=== PATIENT | male | born 1945 ===

== ENCOUNTER 2024-04-30 14:13 | Inpatient (IN) | payer MEDICARE, OTHER, SELFPAY ==
[2024-04-30] VITALS (10 sets, daily range): BP systolic 123–155; BP diastolic 73–95; PULSE 83–97; RESP 16–22; TEMP 36.4–36.8; O2SAT 93–100; BMI 27.6
--- NOTE | ~2024-04-30 | XR_ITS ---
EXAMINATION: [id number] DATE: 05/01/2024 16:38 INDICATION: Right pleural effusion status post thoracentesis. TECHNIQUE: A single frontal view of the chest was obtained. COMPARISON: Chest 2 views 04/30/2024, chest CT 04/30/2024 FINDINGS: There is a moderate-sized right pleural effusion. There are airspace opacities at right maricruz g base. No pneumothorax. Cardiomegaly is noted. IMPRESSION: 1. Moderate-sized right pleural effusion with improvement status post thoracentesis. 2. Cardiomegaly. Reviewed, dictated and finalized at location A. ORAL ASSISTANT IMPRESSION: 1. Moderate-sized right pleural effusion with improvement status post thoracent esis. 2. Cardiomegaly.
--- NOTE | ~2024-04-30 | CT_ITS ---
EXAMINATION: CT abdomen pelvis wo con DATE: 05/01/2024 14:56 INDICATION: Hydronephrosis. TECHNIQUE: Computed tomography (CT) of the abdomen and pelvis was performed without intravenous contr ast. Automated exposure control and iterative reconstruction technique were employed. The dose-length product was 662.03 mGy-cm. COMPARISON: Chest CT 04/28/2024 FINDINGS: The visualized portions of lung bases demonstrate moderate-sized right and small left pleur al effusions. There are airspace opacities in right middle lobe, right lower lobe, and left lower lob e, likely atelectasis. Calcified right lung nodules are consistent with old granulomatous disease. Ca rdiomegaly is noted. There are coronary artery calcifications. There are calcifications of the aortic valve. No pericardial effusion. There is mild bilateral gynecomastia. The liver and spleen are uri l. There is contrast in the gallbladder, which is normal in size. The pancreas, adrenal glands, and r ight kidney are normal. There is severe atrophy of left kidney. The prostate is moderately enlarged. There is a left inguinal hernia containing fat. There is diverticulosis of the colon without evidence of diverticulitis. There are no dilated loops of bowel. The appendix is normal. There are no patholo gically enlarged lymph nodes. There is no free intraperitoneal fluid. There is calcified atherosclero sis of the aorta and many of the other arteries. There are surgical clips in left pelvis. There are b ridging endplate osteophytes at multiple levels in the spine, consistent with diffuse idiopathic skel etal hyperostosis (DISH). There is severe lumbar spondylosis. IMPRESSION: 1. Moderate-sized right and small left pleural effusions. 2. Severe atrophy of left kidney. No hydronephrosis. Reviewed, dictated and finalized at location A. A ATTORNEY
--- NOTE | ~2024-04-30 | CT_ITS ---
EXAMINATION: CTA chest PE protocol DATE: 04/30/2024 21:09 INDICATION: Dyspnea. TECHNIQUE: Computed tomography angiography (CTA) of the chest was performed with 100 mL Omnipaque-350 intravenous contrast timed to evaluate the pulmonary arteries. Coronal maximum intensity projection 3D-reconstructions were created by the technologist. Automated exposure control and iterative reconst ruction technique were employed. The dose-length product was 712.76 mGy-cm. COMPARISON: Chest 2 views 04/30/2024 FINDINGS: There are moderate-sized right and small left pleural effusions. There is septal thickening in the lungs, consistent with mild pulmonary edema. There are patchy airspace opacities in left uppe r lobe. There is passive atelectasis in right middle lobe and right lower lobe. Cardiomegaly is noted . There are coronary artery calcifications. There are calcifications of the aortic valve. No pericard ial effusion. There is severe atrophy of left kidney. Partially visualized is left hydronephrosis. Th ere is no pulmonary embolus. There is mild mediastinal lymphadenopathy, likely reactive. There are br idging endplate osteophytes at multiple levels in the spine, consistent with diffuse idiopathic skele keiko hyperostosis (DISH). There is mild chronic anterior wedging of multiple vertebral bodies. IMPRESSION: 1. Mild pulmonary edema. 2. Mild airspace opacities in left lung upper lobe, consistent with pulmonary edema versus pneumonia. 3. Moderate-sized right and small left pleural effusions. 4. No pulmonary embolus. Sensitivity is moderately decreased by motion artifact. 5. Partially visualized severe atrophy of left kidney. Left hydronephrosis. Reviewed, dictated and finalized at location A. TION SPECIALIST IMPRESSION: 1. Mild pulmonary edema. 2. Mild airspace opacities in left lung upper lobe, consistent with pulmonary e annamarie versus pneumonia. 3. Moderate-sized right and small left pleural effusions. 4. No pulmonary embolus. Sensitivity is moderately decreased by motion artifact . 5. Partially visualized severe atrophy of left kidney. Left hydronephrosis.
--- NOTE | ~2024-04-30 | US_ITS ---
EXAMINATION: US thoracentesis DATE: 05/01/2024 16:46 INDICATION: pleural effusion TECHNIQUE: The procedure and its risks, benefits, and alternatives were discussed with the patient. Potential risks discussed included bleeding, infection, and pneumothorax. The patient understood the risks and agreed to proceed. A timeout was then performed as per protocol. The skin was prepped and draped in sterile fashion. 1% lidocaine was used for local anesthesia. Under ultrasound guidance, a 5 Fr catheter with trocar was advanced into the right pleural effusion, and the trocar needle removed. The catheter was then attached to vacuum suction after a specimen was obtained. The pleural effusion was evacuated nearly in its entirety. The catheter was then removed, and a sterile dressing was applied. There were no immediate complications. FINDINGS: Ultrasound images demonstrate a large right-sided pleural effusion and the catheter within the fluid. IMPRESSION: 1. Successful ultrasound-guided thoracentesis yielding 1900 mL of thin yellow fluid. Reviewed, dictated and finalized at location A. CARE PROVIDER
--- NOTE | ~2024-04-30 | XR_ITS ---
EXAMINATION: XR chest 2V DATE: 04/30/2024 16:33 INDICATION: Soreness of breath TECHNIQUE: PA and lateral views of the chest were obtained. COMPARISON: None FINDINGS: Opacities at the right lower lung zone consistent with a small to moderate-sized right pleural effusi on with associated atelectasis and/or pneumonia. Left lung is clear. No pneumothorax or left-sided pl eural effusion. Heart size is normal. Mild thoracic spondylosis with mild anterior wedging of a coupl e lower thoracic vertebral bodies. IMPRESSION: 1. Opacities in the right lower lung zone consistent with unilateral small to moderate-sized right pl eural effusion and associated atelectasis and/or pneumonia. Reviewed, dictated and finalized at location B. OIDERY CUTTER IMPRESSION: 1. Opacities in the right lower lung zone consistent with unilateral small to m oderate-sized right pleural effusion and associated atelectasis and/or pneumoni a.
--- NOTE | ~2024-04-30 | US_ITS ---
EXAMINATION: US venous doppler [facility] DATE: 05/02/2024 15:16 INDICATION: Dyspnea. Positive d-dimer. TECHNIQUE: Grayscale ultrasound images without and with compression and Doppler ultrasound images of the bilateral lower extremity veins were obtained. COMPARISON: None. FINDINGS: The visualized portions of right common femoral vein, profunda (deep) femoral vein, femoral vein, pop liteal vein, peroneal veins, posterior tibial veins, and greater saphenous vein outflow are patent. The visualized portions of left common femoral vein, profunda femoral vein, femoral vein, popliteal v ein, peroneal veins, posterior tibial veins, and greater saphenous vein outflow are patent. IMPRESSION: 1. No deep venous thrombosis. Reviewed, dictated and finalized at location A. S AND SERVICE SPECIALIST
--- NOTE | 2024-04-30 15:42 | ECG_ITS ---
Test Date: 2024-04-30 16:13:31 Measurements Intervals [place] Rate: 83 P: 38 NV: 149 QRS: 37 QRSD: 106 T: 90 QT: 396 QTc: 467 Interpretive Statements SINUS RHYTHM WITH OCCASIONAL VENTRICULAR PREMATURE COMPLEXES POSSIBLE LEFT ATRIAL ENLARGEMENT CONSIDER ANTERIOR INFARCT, AGE INDETERMINATE BORDERLINE ST-T WAVE ABNORMALITY- INF/LAT LEADS BASELINE ARTIFACT- I, II, III, AVR, AVL, AVF, V1-V6 ABNORMAL ECG No previous ECG available for comparison Electronically Signed On 04-30-2024 16:21:51 [employer] by Theodore Mo D.O.
--- NOTE | 2024-04-30 15:44 | ED_ITS ---
HPI - SOB/Dyspnea General Chief Complaint: Shortness of Breath/Dyspnea <GLORIA Christensen Last Filed: 04/30/24 15:50> Stated Complaint: SOB <GLORIA Christensen Last Filed: 04/30/24 15:50> Time Seen by Provider: 04/30/24 15:44 <GLORIA Christensen Last Filed: 04/30/24 15:50> Focused HPI: Patient is a 78 y/o male, with pmh of HTN, who presents to the ED with c/o SOB. Patient reports having increased shortness breath for the past 2 weeks. Shortness breath is worse with exertion and lying flat. He also reports having intermittent discomfort in his left-sided chest. He has had a cough with production of thick white mucus. Denies fevers, pain or swelling in legs, sick contacts. GENERAL: Elderly, somewhat frail, well-nourished, and in no acute distress. HEAD: Normocephalic, atraumatic. CHEST: Clear to auscultation. ?Mild conversational dyspnea. No significant focal lung sounds. HEART: Regular rate and rhythm.?No significant peripheral edema. NEURO: ?Alert and oriented x3. Patient screened in triage and initial orders placed.? ?Additional care and disposition to be based upon?diagnostic testing and treatment. <Giovanna Tello PA-C - Last Filed: 04/30/24 15:50> Source: patient <GLORIA Christensen Last Filed: 04/30/24 15:50> Mode of arrival: ambulatory <GLORIA Christensen Last Filed: 04/30/24 15:50> Limitations: no limitations <GLORIA Christensen Last Filed: 04/30/24 15:50> History of Present Illness HPI Narrative: Agree with the above triage, however anesthesia if he has chest pain he denies this. His right exertional dyspnea and orthopnea as well as a productive cough with sputum. States he has been smoking 1 pack per day since he was 15 years old. No formal diagnosis of COPD or asthma. Also denies lower extremity edema or history of CHF. <Shanta Lema PA-C - Last Filed: 04/30/24 21:50> Related Data Home Medications: Home Medications Medication Instructions Recorded Confirmed No Home Medications 04/30/24 04/30/24 <Giovanna Tello PA-C - Last Filed: 04/30/24 15:50> Allergies/Adverse Reactions: Allergies Allergy/AdvReac Type Severity Reaction Status Date / Time No Known Allergies Allergy Verified 04/30/24 14:34 <Giovanna Tello PA-C - Last Filed: 04/30/24 15:50> Review of Systems Review of Systems: All systems reviewed & are unremarkable except as noted in HPI and below <Shanta Lema PA-C - Last Filed: 04/30/24 21:50> PMFSH Family History Family History: Family History (Updated 04/30/24 @ 22:56 by Rain Casillas RN) Father Acute myocardial infarction Hypertension Sibling Acute myocardial infarction <Giovanna Tello PA-C - Last Filed: 04/30/24 15:50> Social History Social History: Social History Smoking status: Former smoker Alcohol intake: current Drinks per week: 5 Substance use type: does not use Do You Feel Safe in your Home?: Yes Lack of Transportation: No Lack of Food: Never True Current Housing: I Have Housing Concerned About Future Housing: No Difficulty Paying Gas/Electric Bills: No Difficulty Paying for Meds: No Currently Unemployed: No Education: High School Diploma/GED Difficulty w/ Childcare or Family Care: No Spiritual care concerns: No <Giovanna Tello PA-C - Last Filed: 04/30/24 15:50> Exam Narrative: GENERAL: Well-appearing, well-nourished, and in no acute distress. HEAD: Normocephalic, atraumatic. EYES: PERRLA and EOMI. ENT: Nares clear, no rhinorrhea or epistaxis. Mucous membranes moist. NECK: Supple. CHEST: Decreased lung sounds throughout all lung bonilla with mild expiratory wheezing in the lower bonilla. No rales or rhonchi. Patient is satting 93% on room air and speaking in full sentences. No respiratory distress. HEART: Regular rate and rhythm. No murmur heard. Normal peripheral pulses. ABDOMEN: Soft, nontender, nondistended, normal active bowel sounds. EXTREMITIES: Normal range of motion. 3+ pitting edema to bilateral lower extremities SKIN: Warm, dry, no rash. NEURO: No focal deficits. Alert and oriented x3 <Shanta Lema PA-C - Last Filed: 04/30/24 21:50> Course [facility]/PA Physician Supervision For this patient encounter, I reviewed the [facility] or PA documentation, treatme nt plan, and medical decision making and had [id number] time with this patient. I performed all aspects of the MDM as documented. <Rolando Daily MD - Last Filed: 05/01/24 07:30> Vital Signs Vital signs: Vital Signs Temperature 97.5 F L 04/30/24 14:29 Pulse Rate 97 04/30/24 14:29 Respiratory Rate 17 04/30/24 14:29 Blood Pressure 155/93 H 04/30/24 14:29 Pulse Oximetry 97 04/30/24 14:29 Oxygen Delivery Room Air 04/30/24 14:29 Temperature 97.8 F 05/01/24 07:20 Pulse Rate 84 05/01/24 07:20 Respiratory Rate 18 05/01/24 07:20 Blood Pressure 148/84 H 05/01/24 07:20 Pulse Oximetry 95 05/01/24 07:20 Oxygen Delivery Room Air 05/01/24 04:00 <Giovanna Tello PA-C - Last Filed: 04/30/24 15:50> Vital Signs Temperature 97.5 F L 04/30/24 14:29 Pulse Rate 97 04/30/24 14:29 Respiratory Rate 17 04/30/24 14:29 Blood Pressure 155/93 H 04/30/24 14:29 Pulse Oximetry 97 04/30/24 14:29 Oxygen Delivery Room Air 04/30/24 14:29 Temperature 97.8 F 05/01/24 07:20 Pulse Rate 84 05/01/24 07:20 Respiratory Rate 18 05/01/24 07:20 Blood Pressure 148/84 H 05/01/24 07:20 Pulse Oximetry 95 05/01/24 07:20 Oxygen Delivery Room Air 05/01/24 04:00 <Shanta Lema PA-C - Last Filed: 04/30/24 21:50> Vital Signs Temperature 97.5 F L 04/30/24 14:29 Pulse Rate 97 04/30/24 14:29 Respiratory Rate 17 04/30/24 14:29 Blood Pressure 155/93 H 04/30/24 14:29 Pulse Oximetry 97 04/30/24 14:29 Oxygen Delivery Room Air 04/30/24 14:29 Temperature 97.8 F 05/01/24 07:20 Pulse Rate 84 05/01/24 07:20 Respiratory Rate 18 05/01/24 07:20 Blood Pressure 148/84 H 05/01/24 07:20 Pulse Oximetry 95 05/01/24 07:20 Oxygen Delivery Room Air 05/01/24 04:00 <Rolando Daily MD - Last Filed: 05/01/24 07:30> MDM - SOB/Dyspnea MDM Narrative Medical decision making narrative: MSE by DARLIN in triage. <Giovanna Tello PA-C - Last Filed: 04/30/24 15:50> MSE by DARLIN in triage. 78-year-old male with history of hypertension presents to the emergency department for exertional dyspnea, productive cough, orthopnea for 2 weeks. Vitals are stable. He is satting 93% on room air upon my evaluation and is in no respiratory distress. Speaking full sentences. Exam is significant for 3+ lower extremity edema and decreased lung sounds with expiratory wheezing in the lower lung bonilla. His workup shows no leukocytosis. Hemoglobin is 12.7 with no prior for comparison. Chemistries are largely unremarkable. BNP is elevated to 7260. COVID, flu RSV are negative. EKG shows sinus rhythm with occasional PVC, Q-waves in the anterior leads, no ischemic changes. Troponin is elevated 0.044. Patient is denying chest pain to myself. Will trend troponins. Chest x-ray shows opacities in the right lower lung zone consistent with anterolateral small to moderate-sized right pleural effusion and associated atelectasis and/or pneumonia. Suspect a component of undiagnosed COPD and CHF. Patient was given DuoNeb, 125 mg of Solu-Medrol and 40 mg of Lasix. D-dimer elevated so CTA chest PE obtained which shows no evidence of PE. There is mild pulmonary edema and mild airspace opacities in the left upper lobe consistent with pulmonary edema versus pneumonia. There are moderate size right and small left pleural effusions. Patient was updated on the workup. He was started on Rocephin and azithromycin to cover pneumonia. Plan to admit to the hospitalist for further evaluation and management. Patient is amenable to this. Discussed the case with hospitalist, Dr. Babcock, who agrees to the plan for admission. <Shanta Lema PA-C - Last Filed: 04/30/24 21:50> Lab Data Result diagrams: 04/30/24 16:15 04/30/24 16:15 <Giovanna Tello PA-C - Last Filed: 04/30/24 15:50> Labs: Lab Results 04/30/24 04/30/24 04/30/24 Range/Units 16:15 19:40 21:33 WBC 8.9 (4.5-10.0) K/mm3 RBC 4.09 L (4.6-6.20) M/mm3 Hgb 12.7 L (14.0-18.0) g/dL Hct 38.2 L (42.0-52.0) % MCV 93.4 (80-100) fl MCH 31.1 (26-34) pg MCHC 33.2 (32-36) g/dl RDW 11.6 (11.5-14.5) % Plt Count 296 (150-375) k/mm3 MPV 10.4 (7.4-10.4) fl Immature Gran % (Auto) 0.3 (0-0.5) % Neut % (Auto) 71.0 (45.5-73.1) % Lymph % (Auto) 16.9 L (18.3-44.2) % [place] % (Auto) 8.8 H (2.6-8.5) % Eos % (Auto) 2.2 (0-4.4) % Baso % (Auto) 0.8 (0.2-1.2) % Lymph # (Auto) 1.51 (0.9-3.2) K/mm3 [place] # (Auto) 0.8 H (0.1-0.6) K/mm3 Eos # (Auto) 0.2 (0-0.3) K/mm3 Baso # (Auto) 0.1 (0.0-0.1) K/mm3 Abs Immat Gran (auto) 0.03 (0.00-0.031) K/mm3 Absolute Neuts (auto) 6.3 (1.3-6.7) K/mm3 Absolute Nucleated RBC 0.000 (0.0-0.012) K/mm3 Nucleated RBC % 0.0 (0.0-0.2) % PT 14.8 H (11.1-14.7) Seconds INR 1.1 APTT 35.9 (22.3-36.8) Seconds D-Dimer 2.24 H (<0.48) ug/mL Sodium 136 L (137-145) mmol/L Potassium 4.1 (3.4-5.0) mmol/L Chloride 104 (98-107) mmol/L Carbon Dioxide 22 (22-30) mmol/L Anion Gap 10 (4-12) mmol/L BUN 26 H (9-20) mg/dL Creatinine 1.30 (0.7-1.3) mg/dL Estim Creat Clear Calc 49 ml/min Estimated GFR 54 L (59 - ) Glucose 106 (65-110) mg/dL Calcium 9.6 (8.4-10.2) mg/dL Total Bilirubin 0.9 (0.2-1.3) mg/dL AST 23 (17-59) U/L ALT 15 (6-50) U/L Alkaline Phosphatase 63 (38-126) U/L Troponin I 0.044 H* 0.040 H* (0.000-0.034) ng/mL NT-Pro-B Natriuret Pep 7260 H (19.9-100) pg/mL Total Protein 9.0 H (6.3-8.2) g/dL Albumin 4.4 (3.5-5.1) g/dL Urine Color Yellow (Yellow) Urine Appearance Clear (Clear) Urine pH 5.5 (5.0-9.0) Ur Specific [place] 1.008 (1.001-1.035) Urine Protein Negative (Negative) mg/dL Urine Glucose (UA) Negative (Negative) mg/dL Urine Ketones Negative (Negative) mg/dL Ur Blood (Man) Negative (Negative) Urine Nitrate Negative (Negative) Urine Bilirubin Negative (Negative) Urine Urobilinogen 0.2 (<2.0) mg/dL Leukocyte Esterase Rfl Negative (Negative) LUCIA/UL Influenza A (RT-PCR) Negative (Negative) Influenza B (RT-PCR) Negative (Negative) RSV (RT-PCR) Negative (Negative) SARS-CoV-2 RNA (RT-PCR) Negative (Negative) <Giovanna Tello PA-C - Last Filed: 04/30/24 15:50> Lab Results 04/30/24 04/30/24 04/30/24 Range/Units 16:15 19:40 21:33 WBC 8.9 (4.5-10.0) K/mm3 RBC 4.09 L (4.6-6.20) M/mm3 Hgb 12.7 L (14.0-18.0) g/dL Hct 38.2 L (42.0-52.0) % MCV 93.4 (80-100) fl MCH 31.1 (26-34) pg MCHC 33.2 (32-36) g/dl RDW 11.6 (11.5-14.5) % Plt Count 296 (150-375) k/mm3 MPV 10.4 (7.4-10.4) fl Immature Gran % (Auto) 0.3 (0-0.5) % Neut % (Auto) 71.0 (45.5-73.1) % Lymph % (Auto) 16.9 L (18.3-44.2) % [place] % (Auto) 8.8 H (2.6-8.5) % Eos % (Auto) 2.2 (0-4.4) % Baso % (Auto) 0.8 (0.2-1.2) % Lymph # (Auto) 1.51 (0.9-3.2) K/mm3 [place] # (Auto) 0.8 H (0.1-0.6) K/mm3 Eos # (Auto) 0.2 (0-0.3) K/mm3 Baso # (Auto) 0.1 (0.0-0.1) K/mm3 Abs Immat Gran (auto) 0.03 (0.00-0.031) K/mm3 Absolute Neuts (auto) 6.3 (1.3-6.7) K/mm3 Absolute Nucleated RBC 0.000 (0.0-0.012) K/mm3 Nucleated RBC % 0.0 (0.0-0.2) % PT 14.8 H (11.1-14.7) Seconds INR 1.1 APTT 35.9 (22.3-36.8) Seconds D-Dimer 2.24 H (<0.48) ug/mL Sodium 136 L (137-145) mmol/L Potassium 4.1 (3.4-5.0) mmol/L Chloride 104 (98-107) mmol/L Carbon Dioxide 22 (22-30) mmol/L Anion Gap 10 (4-12) mmol/L BUN 26 H (9-20) mg/dL Creatinine 1.30 (0.7-1.3) mg/dL Estim Creat Clear Calc 49 ml/min Estimated GFR 54 L (59 - ) Glucose 106 (65-110) mg/dL Calcium 9.6 (8.4-10.2) mg/dL Total Bilirubin 0.9 (0.2-1.3) mg/dL AST 23 (17-59) U/L ALT 15 (6-50) U/L Alkaline Phosphatase 63 (38-126) U/L Troponin I 0.044 H* 0.040 H* (0.000-0.034) ng/mL NT-Pro-B Natriuret Pep 7260 H (19.9-100) pg/mL Total Protein 9.0 H (6.3-8.2) g/dL Albumin 4.4 (3.5-5.1) g/dL Urine Color Yellow (Yellow) Urine Appearance Clear (Clear) Urine pH 5.5 (5.0-9.0) Ur Specific [place] 1.008 (1.001-1.035) Urine Protein Negative (Negative) mg/dL Urine Glucose (UA) Negative (Negative) mg/dL Urine Ketones Negative (Negative) mg/dL Ur Blood (Man) Negative (Negative) Urine Nitrate Negative (Negative) Urine Bilirubin Negative (Negative) Urine Urobilinogen 0.2 (<2.0) mg/dL Leukocyte Esterase Rfl Negative (Negative) LUCIA/UL Influenza A (RT-PCR) Negative (Negative) Influenza B (RT-PCR) Negative (Negative) RSV (RT-PCR) Negative (Negative) SARS-CoV-2 RNA (RT-PCR) Negative (Negative) <Shanta Lema PA-C - Last Filed: 04/30/24 21:50> Lab Results 04/30/24 04/30/24 04/30/24 Range/Units 16:15 19:40 21:33 WBC 8.9 (4.5-10.0) K/mm3 RBC 4.09 L (4.6-6.20) M/mm3 Hgb 12.7 L (14.0-18.0) g/dL Hct 38.2 L (42.0-52.0) % MCV 93.4 (80-100) fl MCH 31.1 (26-34) pg MCHC 33.2 (32-36) g/dl RDW 11.6 (11.5-14.5) % Plt Count 296 (150-375) k/mm3 MPV 10.4 (7.4-10.4) fl Immature Gran % (Auto) 0.3 (0-0.5) % Neut % (Auto) 71.0 (45.5-73.1) % Lymph % (Auto) 16.9 L (18.3-44.2) % [place] % (Auto) 8.8 H (2.6-8.5) % Eos % (Auto) 2.2 (0-4.4) % Baso % (Auto) 0.8 (0.2-1.2) % Lymph # (Auto) 1.51 (0.9-3.2) K/mm3 [place] # (Auto) 0.8 H (0.1-0.6) K/mm3 Eos # (Auto) 0.2 (0-0.3) K/mm3 Baso # (Auto) 0.1 (0.0-0.1) K/mm3 Abs Immat Gran (auto) 0.03 (0.00-0.031) K/mm3 Absolute Neuts (auto) 6.3 (1.3-6.7) K/mm3 Absolute Nucleated RBC 0.000 (0.0-0.012) K/mm3 Nucleated RBC % 0.0 (0.0-0.2) % PT 14.8 H (11.1-14.7) Seconds INR 1.1 APTT 35.9 (22.3-36.8) Seconds D-Dimer 2.24 H (<0.48) ug/mL Sodium 136 L (137-145) mmol/L Potassium 4.1 (3.4-5.0) mmol/L Chloride 104 (98-107) mmol/L Carbon Dioxide 22 (22-30) mmol/L Anion Gap 10 (4-12) mmol/L BUN 26 H (9-20) mg/dL Creatinine 1.30 (0.7-1.3) mg/dL Estim Creat Clear Calc 49 ml/min Estimated GFR 54 L (59 - ) Glucose 106 (65-110) mg/dL Calcium 9.6 (8.4-10.2) mg/dL Total Bilirubin 0.9 (0.2-1.3) mg/dL AST 23 (17-59) U/L ALT 15 (6-50) U/L Alkaline Phosphatase 63 (38-126) U/L Troponin I 0.044 H* 0.040 H* (0.000-0.034) ng/mL NT-Pro-B Natriuret Pep 7260 H (19.9-100) pg/mL Total Protein 9.0 H (6.3-8.2) g/dL Albumin 4.4 (3.5-5.1) g/dL Urine Color Yellow (Yellow) Urine Appearance Clear (Clear) Urine pH 5.5 (5.0-9.0) Ur Specific [place] 1.008 (1.001-1.035) Urine Protein Negative (Negative) mg/dL Urine Glucose (UA) Negative (Negative) mg/dL Urine Ketones Negative (Negative) mg/dL Ur Blood (Man) Negative (Negative) Urine Nitrate Negative (Negative) Urine Bilirubin Negative (Negative) Urine Urobilinogen 0.2 (<2.0) mg/dL Leukocyte Esterase Rfl Negative (Negative) LUCIA/UL Influenza A (RT-PCR) Negative (Negative) Influenza B (RT-PCR) Negative (Negative) RSV (RT-PCR) Negative (Negative) SARS-CoV-2 RNA (RT-PCR) Negative (Negative) <Rolando Daily MD - Last Filed: 05/01/24 07:30> Discharge Plan Discharge Clinical Impression: New onset of congestive heart failure, Pleural effusion, Elevated troponin Pneumonia Qualifiers: Pneumonia type: due to unspecified organism Laterality: left Lung location: upper lobe of lung Qualified Code(s): J18.9 - Pneumonia, unspecified organism <Giovanna Tello PA-C - Last Filed: 04/30/24 15:50> Patient Disposition: Still a Patient <Giovanna Tello PA-C - Last Filed: 04/30/24 15:50> Condition: Stable <GLORIA Christensen Last Filed: 04/30/24 15:50>
[2024-04-30 16:34] LABS: Basophils Absolute Auto 0.1 K/mm3 (0.0-0.1); Basophils Percent Auto 0.8 % (0.2-1.2); Eosinophils Absolute Auto 0.2 K/mm3 (0-0.3); Eosinophils Percent Auto 2.2 % (0-4.4); Hematocrit 38.2 % (42.0-52.0); Hemoglobin 12.7 g/dL (14.0-18.0); Immature Granulocyte Absolute 0.03 K/mm3 (0.00-0.031); Immature Granulocyte Percent A 0.3 % (0-0.5); Lymphocytes Absolute Auto 1.51 K/mm3 (0.9-3.2); Lymphocytes Percent Auto 16.9 % (18.3-44.2); Mean Corpuscular HGB Conc 33.2 g/dl (32-36); Mean Corpuscular Hemoglobin 31.1 pg (26-34); Mean Corpuscular Volume 93.4 fl (80-100); Mean Platelet Volume 10.4 fl (7.4-10.4); Monocytes Absolute Auto 0.8 K/mm3 (0.1-0.6); Monocytes Percent Auto 8.8 % (2.6-8.5); Neutrophils Absolute Auto 6.3 K/mm3 (1.3-6.7); Platelet Count Result 296 k/mm3 (150-375); Red Blood Count 4.09 M/mm3 (4.6-6.20); Red Cell Distribution Width 11.6 % (11.5-14.5); White Blood Count 8.9 K/mm3 (4.5-10.0)
[2024-04-30 16:46] LABS: Alanine Aminotransferase 15 U/L (6-50); Albumin Level 4.4 g/dL (3.5-5.1); Alkaline Phosphatase 63 U/L (38-126); Anion Gap 10 mmol/L (4-12); Aspartate Amino Transferase 23 U/L (17-59); Bilirubin,Total 0.9 mg/dL (0.2-1.3); Blood Urea Nitrogen 26 mg/dL (9-20); Calcium 9.6 mg/dL (8.4-10.2); Carbon Dioxide 22 mmol/L (22-30); Chloride 104 mmol/L (98-107); Estimated CRCL calculation 49 ml/min; Estimated Glomerular Filt Rate 54; Glucose 106 mg/dL (65-110); Potassium 4.1 mmol/L (3.4-5.0); Sodium 136 mmol/L (137-145)
[2024-04-30 16:48] LABS: INR 1.1; Prothrombin Time 14.8 Seconds (11.1-14.7)
[2024-04-30 16:49] LABS: Partial Thromboplastin Time 35.9 Seconds (22.3-36.8)
[2024-04-30 17:01] LABS: NT Pro B Type Natriuretic Pept 7260 pg/mL (19.9-100); Troponin I 0.044 ng/mL (0.000-0.034)
[2024-04-30 17:21] LABS: Influenza A QL RT-PCR Negative (Negative); Influenza B QL RT-PCR Negative (Negative); RSV RNA, RT-PCR Negative (Negative); SARS-CoV-2 RNA PCR Negative (Negative)
--- NOTE | 2024-04-30 19:15 | ECG_ITS ---
Test Date: 2024-04-30 19:52:57 Measurements Intervals [place] Rate: 88 P: 24 OR: 155 QRS: 38 QRSD: 102 T: 65 QT: 387 QTc: 471 Interpretive Statements SINUS RHYTHM POSSIBLE LEFT ATRIAL ENLARGEMENT BORDERLINE R WAVE PROGRESSION, ANTERIOR LEADS NONSPECIFIC ST & T-WAVE ABNORMALITY- INF/HIGH LAT LEADS BASELINE ARTIFACT- I, II, III, AVL, AVF, V2-V6 BORDERLINE ECG Compared to ECG 04/30/2024 16:13:31 NO SIGNIFICANT CHANGE Electronically Signed On 05-01-2024 06:00:50 [employer] [employer] [facility] by Theodore Mo D.O.
[2024-04-30] MEDS: IPRATROPIUM 0.5 MG/ALBUTEROL SULFATE 2.5 MG AMPUL.NEB 3 ML INHALATION ×3 (19:26→19:55)
[2024-04-30] MEDS: methylPREDNISolone SOD SUCC 125 MG VIAL IV PUSH (19:35)
[2024-04-30] MEDS: FUROSEMIDE INJ 40 MG/4 ML VIAL IV PUSH (19:36)
[2024-04-30 20:20] LABS: D Dimer 2.24 ug/mL (<0.48)
[2024-04-30 21:42] LABS: Add Urine Microscopic? NO; Appearance Urine Clear (Clear); Bilirubin Urine Negative (Negative); Blood Urine Negative (Negative); Color Urine Yellow (Yellow); Glucose Urine UA Negative (Negative); Ketones Urine Negative (Negative); Leukocyte Esterase Ur Negative LEU/UL (Negative); Nitrate Urine Negative (Negative); Protein Urine Negative (Negative); Specific Grav Ur 1.008 (1.001-1.035); Urobilinogen Urine 0.2 mg/dL (<2.0); pH Urine 5.5 (5.0-9.0)
--- NOTE | 2024-04-30 21:48 | P.HP_ITS ---
H&P: HPI History of Present Illness Date/Time: 04/30/24 21:48 Chief Complaint: shortness of breath Narrative: This is a 78-year-old male with past medical history significant for tobacco dependence, presumptive COPD patient apparently on no home meds. Presents to the emergency room with a history of 10 days of persistent cough productive of white thick sputum, shortness of breath with exertion, denies fevers, rigors, chills, body aches or pain, poor appetite, denies chest pain, denies leg swelling, patient states that he quit his smoking 10 days ago. Preliminary workup was significant for CT of the chest ruled out pulmonary emboli but showed large pleural effusion right-sided and pneumonia, troponins x3 0.044/0.040/0.37 patient tested negative for influenza type A influenza type B COVID and RSV, b rain natriuretic peptide of 7000, D-dimer 2.24. Patient has been admitted for further evaluation management and treatment. EXAMINATION: XR chest 2V DATE: 04/30/2024 16:33 INDICATION: Soreness of breath TECHNIQUE: PA and lateral views of the chest were obtained. COMPARISON: None FINDINGS: Opacities at the right lower lung zone consistent with a small to moderate-sized right pleural effusion with associated atelectasis and/or pneumonia. Left lung is clear. No pneumothorax or left-sided pleural effusion. Heart size is normal. Mild thoracic spondylosis with mild anterior wedging of a couple lower thoracic vertebral bodies. IMPRESSION: 1. Opacities in the right lower lung zone consistent with unilateral small to moderate-sized right pleural effusion and associated atelectasis and/or pneumonia. EXAMINATION: CTA chest PE protocol DATE: 04/30/2024 21:09 INDICATION: Dyspnea. TECHNIQUE: Computed tomography angiography (CTA) of the chest was performed with 100 mL Omnipaque-350 intravenous contrast timed to evaluate the pulmonary arteries. Coronal maximum intensity projection 3D-reconstructions were created by the technologist. Automated exposure control and iterative reconstruction technique were employed. The dose-length product was 712.76 mGy-cm. COMPARISON: Chest 2 views 04/30/2024 FINDINGS: There are moderate-sized right and small left pleural effusions. There is septal thickening in the lungs, consistent with mild pulmonary edema. There are patchy airspace opacities in left upper lobe. There is passive atelectasis in right middle lobe and right lower lobe. Cardiomegaly is noted. There are coronary artery calcifications. There are calcifications of the aortic valve. No pericardial effusion. There is severe atrophy of left kidney. Partially visualized is left hydronephrosis. There is no pulmonary embolus. There is mild mediastinal lymphadenopathy, likely reactive. There are bridging endplate osteophytes at multiple levels in the spine, consistent with diffuse idiopathic skeletal hyperostosis (DISH). There is mild chronic anterior wedging of multiple vertebral bodies. IMPRESSION: 1. Mild pulmonary edema. 2. Mild airspace opacities in left lung upper lobe, consistent with pulmonary edema versus pneumonia. 3. Moderate-sized right and small left pleural effusions. 4. No pulmonary embolus. Sensitivity is moderately decreased by motion artifact. 5. Partially visualized severe atrophy of left kidney. Left hydronephrosis. Review of Systems Review of Systems: Persistent productive cough of white thick sputum, shortness of breath. [facility] Family History Family History Father Acute myocardial infarction Hypertension Sibling Acute myocardial infarction Social History Social History Smoking status: Former smoker Alcohol intake: current Drinks per week: 5 Substance use type: does not use Do You Feel Safe in your Home?: Yes Lack of Transportation: No Lack of Food: Never True Current Housing: I Have Housing Concerned About Future Housing: No Difficulty Paying Gas/Electric Bills: No Difficulty Paying for Meds: No Currently Unemployed: No Education: High School Diploma/GED Difficulty w/ Childcare or Family Care: No Spiritual care concerns: No Meds Home Medications and Allergies Home Medications Medication Instructions Recorded Confirmed Type No Home Medications 04/30/24 04/30/24 History Allergies Allergy/AdvReac Type Severity Reaction Status Date / Time No Known Allergies Allergy Verified 04/30/24 14:34 Vital Signs Vital Signs - 24 hr 04/30/24 14:29 04/30/24 18:31 04/30/24 18:31 Temperature 97.5 F L Pulse Rate 97 92 94 Respiratory Rate 17 22 H Blood Pressure 155/93 H 155/95 H Pulse Oximetry 97 94 Oxygen Delivery Room Air 04/30/24 18:35 04/30/24 19:11 04/30/24 19:27 Temperature Pulse Rate 89 Respiratory Rate 21 H Blood Pressure Pulse Oximetry 100 93 Oxygen Delivery Room Air Room Air 04/30/24 20:11 Temperature 98 F Pulse Rate 84 Respiratory Rate 20 Blood Pressure 155/92 H Pulse Oximetry 100 Oxygen Delivery Exam Narrative: Patient is laying in a stretcher Const: General: cooperative, comfortable, no acute distress, well developed, alert, awake, ill appearing chronically and average body habitus Nutritional Appearance: average body habitus Orientation/consciousness: patient oriented x3 Other: on supplemental oxygen by nasal can HENMT: Head: normal to inspection, normocephalic and atraumatic Ears: hearing grossly normal bilaterally Face/Nose/Sinus: normal facial exam Face and sinus: normal facial exam Eyes: General: appearance normal, both eyes and all related structures Pupils: Equal, round and reactive pupils present EOM: EOMs intact bilaterally Neck: Neck: full ROM, no lymphadenopathy and no JVD Thyroid: thyroid normal Lymphatic: no lymphadenopathy noted Resp: Effort & Inspection: normal respiratory effort and able to speak in complete sentences Auscultation: crackles, rales and diminished lung sounds Cardio: Jugular venous distension: no JVD Rate: regular rate Rhythm: regular rhythm Heart sounds: S1 normal heart sound present and S2 normal heart sound present GI: GI Palp: Yes Soft to palpation and Yes No hepatosplenomegaly present : General: Yes deferred Skin: Rashes: no rashes Wounds: no wounds Neuro: General: patient oriented x3 and CN's II-XI intact bilaterally Cranial nerves: Yes CN's II-XII intact bilaterally and Yes Equal, round and reactive pupils present Cognition (Neuro): normal cognition Speech: normal speech Gait exam (Neuro): Unable to assess gait Motor exam (neuro): 5/5 motor strength present throughout Extrem: General: normal to inspection, full ROM, no joint enlargement and no pedal edema H&P: Results Labs Labs: Short CBC 04/30/24 Range/Units 16:15 WBC 8.9 (4.5-10.0) K/mm3 Hgb 12.7 L (14.0-18.0) g/dL Hct 38.2 L (42.0-52.0) % Plt Count 296 (150-375) k/mm3 [facility] 04/30/24 16:15 Sodium 136 L Potassium 4.1 Chloride 104 Carbon Dioxide 22 BUN 26 H Creatinine 1.30 Glucose 106 Calcium 9.6 Cardiac Enzymes 04/30/24 04/30/24 Range/Units 16:15 19:40 Troponin I 0.044 H* 0.040 H* (0.000-0.034) ng/mL Liver Function 04/30/24 Range/Units 16:15 Total Bilirubin 0.9 (0.2-1.3) mg/dL AST 23 (17-59) U/L ALT 15 (6-50) U/L Alkaline Phosphatase 63 (38-126) U/L Albumin 4.4 (3.5-5.1) g/dL Assessment and Plan Assessment and plan (1) Pneumonia: Qualifiers: Laterality: left Lung location: upper lobe of lung Pneumonia type: due to unspecified organism Qualified Code(s): J18.9 - Pneumonia, unspecified organism Code(s): J18.9 - Pneumonia, unspecified organism Status: Acute Assessment and Plan: admit to IMU patient is started on Rocephin and Zithromax cultures in progress (2) Tobacco dependence: Code(s): F17.200 - Nicotine dependence, unspecified, uncomplicated Status: Acute Assessment and Plan: nicotine patch as needed (3) COPD (chronic obstructive pulmonary disease): Code(s): J44.9 - Chronic obstructive pulmonary disease, unspecified Status: Acute Assessment and Plan: Amanda (4) Elevated troponin: Code(s): R79.89 - Other specified abnormal findings of blood chemistry Status: Acute Assessment and Plan: slightly elevated continue to trend no EKG changes (5) Pleural effusion: Code(s): J90 - Pleural effusion, not elsewhere classified Status: Acute Assessment and Plan: ultrasound-guided thoracentesis in a.m. pleural fluid for analysis (6) New onset of congestive heart failure: Code(s): I50.9 - Heart failure, unspecified Status: Acute Assessment and Plan: will obtained echocardiogram in a.m. diurese as needed Hospitalist MIPS Advance Care Plan I have confirmed that the patient's Advanced Care Plan is present, code status is documented, or surrogate decision maker is listed in patient medical record.: Yes Medication Reconciliation I have utilized all available resources to obtain, update and review the patients current medications (includes all prescriptions, OTC, herbals, cannabis, and nutritional supplements).: Yes
[2024-04-30] MEDS: AZITHROMYCIN 500 MG/NS 250 ML 500 MG/250 ML BAG 250 MG IVPB (22:23)
--- NOTE | 2024-04-30 23:02 | ADMGEN ---
This patient, Rigo Caballero, was admitted to IMU Room 206-01. Patient/family oriented to hospital policies and general routines including ID bracelet, bed and alarms, visiting hours, pain management, procedures, bathroom and other care routines, personal items, smoking policy, room service/diet, and visiting hours. Information on how to activate the Rapid Response Team has been discussed. Patient/Family are encouraged to report perceived risks to care and to ask questions if they do not understand what they are told or what they should do.
[2024-04-30 23:13] LABS: Troponin I 0.037 ng/mL (0.000-0.034)
[2024-05-01] VITALS (25 sets, daily range): BP systolic 110–148; BP diastolic 46–84; PULSE 78–94; RESP 18–20; TEMP 36.4–37.1; O2SAT 92–99
--- NOTE | 2024-05-01 | ECHO_ITS ---
Patient Info Name: Rigo Caballero Age: 78 years : 1945 Gender: Male Ht: 73 in Wt: 212 lbs BSA: 2.24 m2 HR: 94 bpm BP: 147 / 77 mmHg Technical Quality: Poor Exam Date: 05/01/2024 10:11 AM Exam Location: Echo Lab Patient Status: Inpatient Admit Date: 04/30/2024 Staff Ordering Physician: Hermelinda Babcock MD Attending Provider: Hermelinda Babcock MD Referring Physician: Sadiq LINARES; Exam Type: CA echo dop color flow w con Study Info Indications - ELEVATED BNP Complete two-dimensional, color flow and Doppler transthoracic echocardiogram is performed with contrast to opacify the left ventricle and to improve the deliniation of the left ventricle endocardial borders. Contrast/Agitated Saline Contrast/Ag. Saline: Definity Amount: 2.00 ml Existing IV Access: Yes Reason for Poor Study: poor echocardiographic windows Summary 1. Dilated inferior vena cava with <50% collapse upon inspiration consistent with elevated right atrial pressure, 15 mmHg. 2. Left ventricular chamber dimension is enlarged. 3. Left ventricular wall thickness is severely increased. 4. Left ventricular systolic function is mildly reduced with an estimated ejection fraction of 45-50 %. 5. There is moderate aortic valve stenosis with a peak velocity of 321.73 cm/s, mean gradient of 31 mmHg, and aortic valve area of 1.15 cm2. SVI \R\ 35. DON by planimetry 1.2. 6. There is severe aortic valve calcification. 7. There is mild mitral valve regurgitation. 8. Left atrial chamber dimension is enlarged. Recommendations * Cardiology Consult. Left Ventricle Left ventricular chamber dimension is enlarged. Left ventricular wall thickness is severely increased. Left ventricular systolic function is mildly reduced with an estimated ejection fraction of 45-50 %. Right Ventricle Right ventricular chamber dimension is normal. Right ventricular systolic function is normal. Left Atria Left atrial chamber dimension is enlarged. Aortic Valve There is severe aortic valve calcification. There is moderate aortic valve stenosis with a peak velocity of 321.73 cm/s, mean gradient of 31 mmHg, and aortic valve area of 1.15 cm2. SVI \R\ 35. DON by planimetry 1.2. There is no aortic valve regurgitation. Pulmonic Valve Pulmonary valve is not well visualized. Mitral Valve There is mild mitral valve regurgitation. Tricuspid Valve There is no tricuspid valve regurgitation. Pulmonary pressures cannot be estimated due to no TR jet. Inferior Vena Cava Dilated inferior vena cava with <50% collapse upon inspiration consistent with elevated right atrial pressure, 15 mmHg. 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 Left Ventricular Outflow Tract Name Value Normal LVOT 2D LVOT Diameter 2.40 cm LVOT Doppler LVOT Peak Gradient 3 mmHg LVOT Mean Gradient 2 mmHg LVOT VTI 17.10 cm LVOT VTI/AV VTI Ratio 0.26 LVOT Stroke Volume 76.98 ml LVOT CO 6.74 l/min LVOT CI 3.01 L/min/m2 Pulmonic Valve Name Value Normal RVOT Doppler RVOT Peak Gradient 3 mmHg PV Doppler PV Peak Gradient 2 mmHg Mitral Valve Name Value Normal MV Doppler MV Peak Gradient 10 mmHg MV Mean Gradient 4 mmHg MV Decel [place] 1,502.53 cm/s2 MV PHT 0 s MV Area (PHT) 9.09 cm2 4.00-5.00 MV Area (Cont Eq VTI) 2.26 cm2 MV Diastolic Function MV E Peak Velocity 125.43 cm/s MV A Peak Velocity 84.09 cm/s MV E/A 1.49 MV Decel Time 0 s MV Annular TDI MV E/e' (Septal) 25.30 <=8.00 MV E/e' (Lateral) 20.44 <=8.00 MV E/e' (Average) 22.87 Tricuspid Valve Name Value Normal Estimated PAP/RSVP RA Pressure 15 mmHg <=5 Aorta Name Value Normal Ascending Aorta Ao Root Diameter (MM) 4.58 cm Ao Root Diam Index (MM) 2.04 cm/m2 Aortic Valve Name Value Normal AV Doppler AV Peak Velocity 321.73 cm/s AV Peak Gradient 0 mmHg AV Mean Gradient 31 mmHg AV VTI 66.70 cm AV Area (Cont Eq VTI) 1.15 cm2 >=3.00 AV Area (Cont Eq Prateek) 1.26 cm2 AV Regurgitation 2D LVOT Area 4.50 cm2 Ventricles Name Value Normal LV Dimensions 2D/MM IVS Diastolic Thickness (2D) 1.67 cm 0.60-1.00 LVID Diastole (2D) 5.68 cm 4.20-5.80 LVIW Diastolic Thickness (2D) 1.71 cm 0.60-1.00 LVID Systole (2D) 4.23 cm 2.50-4.00 LVOT Diameter 2.40 cm LV Mass (2D Cubed) 465.05 g 88.00-224.00 LV Mass Index (2D Cubed) 0.02 g/cm2 0.00-0.01 Relative Wall Thickness (2D) 0.60 LV Fractional Shortening/Ejection Fraction 2D/MM LV Fractional Shortening (2D) 27 % 25-43 LV EF (2D Teicholz) 52 % 52-72 LV Diastolic Volume (4C MOD) 168.78 ml LV EF (4C MOD) 45 % LV Diastolic Volume (2C MOD) 158.36 ml LV EF (2C MOD) 55 % LV Diastolic Volume (BP MOD) 170.41 ml 62.00-150.00 LV Diastolic Volume Index (BP MOD) 0.08 l/m2 0.03-0.07 LV Systolic Volume (BP MOD) 83.50 ml 21.00-61.00 LV Systolic Volume Index (BP MOD) 0.04 l/m2 0.01-0.03 LV EF (BP MOD) 51 % 52-72 LV Diastolic Length (4C) 9.49 cm LV Systolic Length (4C) 8.32 cm LV Stroke Volume (4C MOD) 75.92 ml Atria Name Value Normal LA Dimensions LA Dimension (MM) 4.86 cm 3.00-4.10 LA Volume (4C A-L) 59.65 ml LA Volume (BP A-L) 86.39 ml Report Signatures
[2024-05-01] MEDS: methylPREDNISolone SOD SUCC 125 MG VIAL 60 MG IV PUSH ×2 (00:46→06:31)
[2024-05-01] MEDS: IPRATROPIUM 0.5 MG/ALBUTEROL SULFATE 2.5 MG AMPUL.NEB 3 ML INHALATION ×3 (08:49→20:35)
[2024-05-01] MEDS: PERFLUTREN LIPID MICROSPHERES 1.5 ML VIAL DILUTED TO 10 ML TOTAL VOLUME IV PUSH (10:50)
--- NOTE | 2024-05-01 11:45 | IVDEFINITY ---
Prior to administration of IV Definity the patient was educated on the risks and benefits of the imaging enhancing agent including potential adverse side effects. The patient verbalized understanding. Allergies were verified. No exclusion criteria were identified and at least one of the following inclusion criteria were met: 1) physician request, 2) patient technically difficult to image (per the [place] [employer] guidelines of two or more segments not discernable within the apical view), or 3) questionable left ventricular function. ?
--- NOTE | 2024-05-01 12:50 | PM.IMPN ---
Progress Note: A&P Assessment and Plan (1) Pneumonia: Qualifiers: Laterality: left Lung location: upper lobe of lung Pneumonia type: due to unspecified organism Qualified Code(s): J18.9 - Pneumonia, unspecified organism Code(s): J18.9 - Pneumonia, unspecified organism Status: Acute Assessment and Plan: patient is started on Rocephin and Zithromax cultures in progress (2) Tobacco dependence: Code(s): F17.200 - Nicotine dependence, unspecified, uncomplicated Status: Acute Assessment and Plan: nicotine patch as needed (3) COPD (chronic obstructive pulmonary disease): Code(s): J44.9 - Chronic obstructive pulmonary disease, unspecified Status: Acute Assessment and Plan: Amanda Received a dose of Solu-Medrol Possible COPD exacerbation an on Solu-Medrol will change to oral prednisone (4) Elevated troponin: Code(s): R79.89 - Other specified abnormal findings of blood chemistry Status: Acute Assessment and Plan: slightly elevated and remains flat no EKG changes (5) Pleural effusion: Code(s): J90 - Pleural effusion, not elsewhere classified Status: Acute Assessment and Plan: ultrasound-guided thoracentesis plan today pleural fluid for analysis (6) New onset of congestive heart failure: Code(s): I50.9 - Heart failure, unspecified Status: Acute Assessment and Plan: Echocardiogram BNP elevated at 7260. Diuresis as needed No prior diagnosis of congestive heart failure. Does have bilateral pleural effusion right more than left on presentation. With associated mild pulmonary edema on CTA chest. He received a dose of Lasix yesterday Subjective Date/time seen: 05/01/24 12:50 Interval history: No Overnight events. Feeling better. He is going for tap. Denies any leg swelling. Chest x-ray and CT scan reviewed. Review of Systems Review of Systems: All systems reviewed & are unremarkable except as noted in HPI and below Exam Narrative: GENERAL: Well-appearing, well-nourished, and in no acute distress. HEAD: Normocephalic, atraumatic. EYES: PERRLA and EOMI. ENT: Nares clear, no rhinorrhea or epistaxis. Mucous membranes moist. NECK: Supple. CHEST: Coarse breath sounds bilaterally. No rales or rhonchi. No respiratory distress HEART: Regular rate and rhythm. No murmur heard. Normal peripheral pulses. ABDOMEN: Soft, nontender, nondistended, normal active bowel sounds. EXTREMITIES: Normal range of motion. Trace edema to bilateral lower extremities SKIN: Warm, dry, no rash. NEURO: No focal deficits. Alert and oriented x3 Objective Data Vital Signs Vital Signs: Vital Signs - 24 hr 04/30/24 14:29 04/30/24 18:31 04/30/24 18:31 Temperature 97.5 F L Pulse Rate 97 92 94 Respiratory Rate 17 22 H Blood Pressure 155/93 H 155/95 H Pulse Oximetry 97 94 Oxygen Delivery Room Air Fraction of Inspired Oxygen 04/30/24 18:35 04/30/24 19:11 04/30/24 19:27 Temperature Pulse Rate 89 Respiratory Rate 21 H Blood Pressure Pulse Oximetry 100 93 Oxygen Delivery Room Air Room Air Fraction of Inspired Oxygen 04/30/24 20:11 04/30/24 21:30 04/30/24 22:22 Temperature 98 F 98.1 F Pulse Rate 84 86 Respiratory Rate 20 16 Blood Pressure 155/92 H 148/84 H Pulse Oximetry 100 94 94 Oxygen Delivery Room Air Fraction of Inspired Oxygen 04/30/24 22:45 04/30/24 23:43 05/01/24 00:00 Temperature 98.2 F Pulse Rate 87 83 83 Respiratory Rate 20 20 Blood Pressure 139/86 123/73 Pulse Oximetry 95 95 Oxygen Delivery Room Air Fraction of Inspired Oxygen 05/01/24 00:00 05/01/24 03:15 05/01/24 04:00 Temperature 98.7 F Pulse Rate 83 94 94 Respiratory Rate 20 20 Blood Pressure 147/77 H Pulse Oximetry 92 92 Oxygen Delivery Room Air Fraction of Inspired Oxygen 05/01/24 02:00 05/01/24 04:00 05/01/24 06:00 Temperature Pulse Rate 90 78 85 Respiratory Rate Blood Pressure Pulse Oximetry Oxygen Delivery Fraction of Inspired Oxygen 05/01/24 07:20 05/01/24 08:49 05/01/24 08:49 Temperature 97.8 F Pulse Rate 84 85 Respiratory Rate 18 18 Blood Pressure 148/84 H Pulse Oximetry 95 95 Oxygen Delivery Room Air Fraction of Inspired Oxygen 21 05/01/24 08:56 05/01/24 08:00 05/01/24 08:00 Temperature Pulse Rate 84 84 88 Respiratory Rate 18 18 Blood Pressure Pulse Oximetry 95 Oxygen Delivery Room Air Fraction of Inspired Oxygen 21 11/19/24 11:11 05/01/24 10:00 05/01/24 12:00 Temperature 97.6 F Pulse Rate 87 85 87 Respiratory Rate 20 20 Blood Pressure 134/52 L Pulse Oximetry 99 99 Oxygen Delivery Room Air Fraction of Inspired Oxygen 05/01/24 12:00 Temperature Pulse Rate 87 Respiratory Rate Blood Pressure Pulse Oximetry Oxygen Delivery Fraction of Inspired Oxygen Intake/Output Intake/Output: Intake & Output 04/28/24 04/29/24 04/30/24 05/01/24 23:59 23:59 23:59 23:59 Intake Total 50 540 Output Total 800 Balance 50 -260 Meds/Results Medications: Active Medications Generic Name Dose Route Start Last Admin Trade Name Freq PRN Reason Stop Dose Admin Acetaminophen 1,000 mg 05/01/24 00:44 Acetaminophen 500 Mg Tablet PO Q6H PRN Mild Pain (1-3) or Fever Al Hydrox/Mg Hydrox/Simethicone 30 ml 05/01/24 00:44 Mag Hydrox/Al Hydrox/Simeth 30 Ml Udc PO Q6H PRN Indigestion Albuterol/Ipratropium 3 ml 05/01/24 02:00 05/01/24 08:49 Ipratropium 0.5 Mg/Albuterol Sulfate 2.5 Mg Ampul.Neb 3 Ml INHALATION 3 ml Q6HRT TESSIE Administration Enoxaparin Sodium 40 mg 05/01/24 09:00 Enoxaparin 40 Mg/0.4 Ml Syringe SUB-Q DAILY [facility] Ceftriaxone Sodium 1 gm in 50 mls @ 100 mls/hr 05/01/24 21:00 Rocephin 1 Gm/Ns 50 Ml IVPB Q24H [facility] Azithromycin 500 mg in 250 mls @ 250 mls/hr 05/01/24 21:00 Zithromax IVPB Q24H [facility] Methylprednisolone Sodium Succinate 60 mg 05/01/24 00:00 05/01/24 06:31 Methylprednisolone Sod Succ 125 Mg Vial IV PUSH 60 mg Q6HR TESSIE Administration Morphine Sulfate 2 mg 05/01/24 00:44 Morphine Sulfate (*Crx) 2 Mg/Ml Inj IV PUSH Q4H PRN Pain Rated 7-10 Ondansetron HCl 4 mg 05/01/24 00:44 Ondansetron Inj 4 Mg/2 Ml Vial IV PUSH Q6H PRN Nausea And Vomiting Polyethylene Glycol 17 gm 05/01/24 00:44 Polyethylene Glycol 3350 17 Gm Powd.Pack PO QAM PRN Constipation Radiology Results: ITS Impressions Chest X-Ray 04/30/24 16:34 IMPRESSION: 1. Opacities in the right lower lung zone consistent with unilateral small to moderate-sized right pleural effusion and associated atelectasis and/or pneumonia. Chest CTA 04/30/24 21:11 IMPRESSION: 1. Mild pulmonary edema. 2. Mild airspace opacities in left lung upper lobe, consistent with pulmonary edema versus pneumonia. 3. Moderate-sized right and small left pleural effusions. 4. No pulmonary embolus. Sensitivity is moderately decreased by motion artifact. 5. Partially visualized severe atrophy of left kidney. Left hydronephrosis. Labs Labs: Laboratory Results - last 24 hr 04/30/24 04/30/24 04/30/24 16:15 19:40 21:33 WBC 8.9 RBC 4.09 L Hgb 12.7 L Hct 38.2 L MCV 93.4 MCH 31.1 MCHC 33.2 RDW 11.6 Plt Count 296 MPV 10.4 Immature Gran % (Auto) 0.3 Neut % (Auto) 71.0 Lymph % (Auto) 16.9 L [place] % (Auto) 8.8 H Eos % (Auto) 2.2 Baso % (Auto) 0.8 Lymph # (Auto) 1.51 [place] # (Auto) 0.8 H Eos # (Auto) 0.2 Baso # (Auto) 0.1 Abs Immat Gran (auto) 0.03 Absolute Neuts (auto) 6.3 Absolute Nucleated RBC 0.000 Nucleated RBC % 0.0 PT 14.8 H INR 1.1 APTT 35.9 D-Dimer 2.24 H Sodium 136 L Potassium 4.1 Chloride 104 Carbon Dioxide 22 Anion Gap 10 BUN 26 H Creatinine 1.30 Estim Creat Clear Calc 49 Estimated GFR 54 L Glucose 106 Calcium 9.6 Total Bilirubin 0.9 AST 23 ALT 15 Alkaline Phosphatase 63 Troponin I 0.044 H* 0.040 H* NT-Pro-B Natriuret Pep 7260 H Total Protein 9.0 H Albumin 4.4 Urine Color Yellow Urine Appearance Clear Urine pH 5.5 Ur Specific [place] 1.008 Urine Protein Negative Urine Glucose (UA) Negative Urine Ketones Negative Ur Blood (Man) Negative Urine Nitrate Negative Urine Bilirubin Negative Urine Urobilinogen 0.2 Leukocyte Esterase Rfl Negative Influenza A (RT-PCR) Negative Influenza B (RT-PCR) Negative RSV (RT-PCR) Negative SARS-CoV-2 RNA (RT-PCR) Negative 04/30/24 22:00 WBC RBC Hgb Hct MCV MCH MCHC RDW Plt Count MPV Immature Gran % (Auto) Neut % (Auto) Lymph % (Auto) [place] % (Auto) Eos % (Auto) Baso % (Auto) Lymph # (Auto) [place] # (Auto) Eos # (Auto) Baso # (Auto) Abs Immat Gran (auto) Absolute Neuts (auto) Absolute Nucleated RBC Nucleated RBC % PT INR APTT D-Dimer Sodium Potassium Chloride Carbon Dioxide Anion Gap BUN Creatinine Estim Creat Clear Calc Estimated GFR Glucose Calcium Total Bilirubin AST ALT Alkaline Phosphatase Troponin I 0.037 H* NT-Pro-B Natriuret Pep Total Protein Albumin Urine Color Urine Appearance Urine pH Ur Specific [place] Urine Protein Urine Glucose (UA) Urine Ketones Ur Blood (Man) Urine Nitrate Urine Bilirubin Urine Urobilinogen Leukocyte Esterase Rfl Influenza A (RT-PCR) Influenza B (RT-PCR) RSV (RT-PCR) SARS-CoV-2 RNA (RT-PCR)
--- NOTE | 2024-05-01 16:47 | PM.OP ---
Procedure Note - Brief Procedure Note - Brief Date of procedure: 05/01/24 New onset CHF, Pneumonia Procedure performed: R sided thoracentesis Surgeon: Erica Wright MD Anesthesia: local Findings: sterile technique, US guidance, 1900cc thin yellow fluid removed from R hemithorax. CXR - no PTX specimen sent for evaluation Description of procedure: sterile technique, US guidance, 1900cc thin yellow fluid removed from R hemithorax. CXR - no PTX specimen sent for evaluation Estimated blood loss (mL): 0.1 Pathology: Yes Complications: No immediate complications Condition: Stable Disposition: Floor
[2024-05-01 16:56] LABS: Appearance Pleural Fluid Cloudy (Clear); Color Pleural Fluid Yellow (Colorless); Pleural fluid source Pleural fluid
[2024-05-01 17:21] LABS: pH Pleural Fluid > 7.500 (7.210-7.500)
[2024-05-01 17:32] LABS: Lymphocytes Pleural Fluid 45 %; Macrophages Pleural Fluid 20 %; Monocytes Pleural Fluid 6 %; Neutrophils Pleural Fluid 24 % (0-25)
[2024-05-01 17:33] LABS: Mesothelial Cells Pleural Flui 4 %; Other Cells Pleural Fluid 1 %
[2024-05-01] MEDS: AZITHROMYCIN 500 MG/NS 250 ML 500 MG/250 ML BAG 250 MG IVPB (21:02)
[2024-05-02] VITALS (24 sets, daily range): BP systolic 135–156; BP diastolic 71–90; PULSE 71–98; RESP 18–20; TEMP 36.4–36.8; O2SAT 93–99
[2024-05-02] MEDS: IPRATROPIUM 0.5 MG/ALBUTEROL SULFATE 2.5 MG AMPUL.NEB 3 ML INHALATION ×4 (02:40→20:15)
[2024-05-02 04:16] LABS: Basophils Percent Auto 0.1 % (0.2-1.2); Eosinophils Percent Auto 0.1 % (0-4.4); Hematocrit 39.7 % (42.0-52.0); Immature Granulocyte Absolute 0.05 K/mm3 (0.00-0.031); Immature Granulocyte Percent A 0.4 % (0-0.5); Lymphocytes Percent Auto 6.7 % (18.3-44.2); Mean Corpuscular HGB Conc 32.7 g/dl (32-36); Mean Corpuscular Hemoglobin 30.9 pg (26-34); Mean Corpuscular Volume 94.3 fl (80-100); Mean Platelet Volume 10.2 fl (7.4-10.4); Neutrophils Absolute Auto 11.6 K/mm3 (1.3-6.7); Neutrophils Percent Auto 85.7 % (45.5-73.1); Platelet Count Result 302 k/mm3 (150-375); Red Blood Count 4.21 M/mm3 (4.6-6.20); Red Cell Distribution Width 11.5 % (11.5-14.5); White Blood Count 13.5 K/mm3 (4.5-10.0)
[2024-05-02 04:30] LABS: Alanine Aminotransferase 14 U/L (6-50); Albumin Level 4.1 g/dL (3.5-5.1); Alkaline Phosphatase 55 U/L (38-126); Anion Gap 9 mmol/L (4-12); Aspartate Amino Transferase 23 U/L (17-59); Bilirubin,Total 0.5 mg/dL (0.2-1.3); Blood Urea Nitrogen 34 mg/dL (9-20); Calcium 9.6 mg/dL (8.4-10.2); Carbon Dioxide 26 mmol/L (22-30); Chloride 104 mmol/L (98-107); Estimated CRCL calculation 41 ml/min; Estimated Glomerular Filt Rate 42; Glucose 131 mg/dL (65-110); Magnesium 2.5 mg/dL (1.6-2.3); Potassium 4.1 mmol/L (3.4-5.0); Sodium 139 mmol/L (137-145)
[2024-05-02] MEDS: ENOXAPARIN 40 MG/0.4 ML SYRINGE SUB-Q (08:04)
[2024-05-02] MEDS: predniSONE 20 MG TABLET 40 MG PO (08:04)
--- NOTE | 2024-05-02 13:14 | PM.IMPN ---
Progress Note: A&P Assessment and Plan (1) Pneumonia: Qualifiers: Laterality: left Lung location: upper lobe of lung Pneumonia type: due to unspecified organism Qualified Code(s): J18.9 - Pneumonia, unspecified organism Code(s): J18.9 - Pneumonia, unspecified organism Status: Acute Assessment and Plan: Patient presents with SOB. WBC was normal. DDimer positive at 2.24. CTA chest showing no obvious PE but mild pulmonary edema, left upper lobe opacity and moderate right and mild left pleural effusion. LE venous Doppler negative for DVT COVID, influenza and RSV PCR negative. Patient is started on Rocephin and Zithromax after appropriate cultures obtained. BCx NGTD WBC higher related to steroids. Weaned to room air Check MRSA nasal swab. Change to oral Doxycycline to complete 5 days. Extend to 7 days total if MRSA +. Continue Rocephin (2) New onset of congestive heart failure: Code(s): I50.9 - Heart failure, unspecified Status: Acute Assessment and Plan: CTA chest as above. BNP elevated at 7260. Lasix IV once in the ED. Cr was 1.3 but now up to 1.6. Echo with elevated RAP (15), enlarged LV with thickened wall and mildly reduced EF 45-50%. Moderate and mild MR. Hold further Lasix dosing. No prior diagnosis of congestive heart failure. Cardiology consult recommended (3) Elevated troponin: Code(s): R79.89 - Other specified abnormal findings of blood chemistry Status: Acute Assessment and Plan: Troponin mildly elevated at 0.044 and flat. EKG showing NSR, PVCs, possible LAE, consider anterior infarct, borderline ST-T wave changes inf/lat leads No old EKGs to compare. Repeat EKG showing no change Suspect troponin leak related to CHF (4) Pleural effusion: Code(s): J90 - Pleural effusion, not elsewhere classified Status: Acute Assessment and Plan: CTA chest showing R>L pleural effusion Patient underwent ultrasound-guided thoracentesis yesterday pH >7.5. No RBC./WBC. 24% PMNs, 45% lymph, 20% Macrophages. Cytology pending. Add pleural culture if able. Other studies pending (5) COPD (chronic obstructive pulmonary disease): Code(s): J44.9 - Chronic obstructive pulmonary disease, unspecified Status: Acute Assessment and Plan: Patient with possible COPD exacerbation. He was started on DuoNebs and Solu-Medrol Solu-Medrol will change to oral prednisone Continue Prednisone (6) Tobacco dependence: Code(s): F17.200 - Nicotine dependence, unspecified, uncomplicated Status: Acute Assessment and Plan: Patient educated about the benefit of smoking cessation Plan Debility - start PTOT DVT prophylaxis - Lovenox Code status - full Subjective Date/time seen: 05/02/24 13:14 Interval history: 78yo male with tobacco abuse and probably COPD here for shortness of breath. Assuming care. Chart reviewed. No problems overnight. No odynophagia or dysphagia. Cough is much better. No chest pain. He was having some chest tightness earlier today but this improved after a breathing treatment. He usually walks unassisted at home. Exam Narrative: AF 97.8 147/90 92 18 96% ra Gen - NARD Chest - decreased BS in the right base with crackles mid and lower lung field; no wheezing CV - RRR S1/S2. No JVD. Tele showing NSR with one episode of probably atrial tachycardia. Abd - Soft, NT/ND, Positive BS Ext - No pedal edema Neuro - Alert and oriented. Nonfocal exam. Psych - Nml mood and affect Skin - Warm and dry Objective Data Vital Signs Vital Signs: Vital Signs - 24 hr 05/01/24 14:30 05/01/24 14:38 05/01/24 15:06 Temperature 98.1 F Pulse Rate 86 91 85 Respiratory Rate 18 18 20 Blood Pressure 135/70 Pulse Oximetry 94 Oxygen Delivery Fraction of Inspired Oxygen 05/01/24 14:00 05/01/24 16:00 05/01/24 16:00 Temperature Pulse Rate 90 85 93 Respiratory Rate 20 Blood Pressure Pulse Oximetry 94 Oxygen Delivery Room Air Fraction of Inspired Oxygen 21 05/01/24 18:00 05/01/24 20:33 05/01/24 20:36 Temperature 98.2 F Pulse Rate 86 81 81 Respiratory Rate 20 18 Blood Pressure 110/46 L Pulse Oximetry 93 Oxygen Delivery Fraction of Inspired Oxygen 05/01/24 20:39 05/01/24 20:47 05/01/24 20:00 Temperature Pulse Rate 81 91 91 Respiratory Rate 18 18 Blood Pressure Pulse Oximetry 93 93 Oxygen Delivery Room Air Room Air Fraction of Inspired Oxygen 21 21 05/01/24 23:35 05/02/24 00:00 05/02/24 02:40 Temperature 98.1 F Pulse Rate 92 92 89 Respiratory Rate 20 20 18 Blood Pressure 127/79 Pulse Oximetry 93 93 Oxygen Delivery Room Air Fraction of Inspired Oxygen 21 05/02/24 02:48 05/02/24 05:18 05/02/24 04:00 Temperature 98.3 F Pulse Rate 84 87 87 Respiratory Rate 18 20 20 Blood Pressure 135/71 Pulse Oximetry 96 96 Oxygen Delivery Room Air Fraction of Inspired Oxygen 21 05/01/24 20:00 05/01/24 22:00 05/02/24 00:00 Temperature Pulse Rate 86 87 88 Respiratory Rate Blood Pressure Pulse Oximetry Oxygen Delivery Fraction of Inspired Oxygen 05/02/24 02:00 05/02/24 04:00 05/02/24 06:00 Temperature Pulse Rate 72 71 78 Respiratory Rate Blood Pressure Pulse Oximetry Oxygen Delivery Fraction of Inspired Oxygen 05/02/24 07:24 05/02/24 08:00 05/02/24 08:00 Temperature 97.5 F L Pulse Rate 87 87 85 Respiratory Rate 20 20 Blood Pressure 156/89 H Pulse Oximetry 99 99 Oxygen Delivery Room Air Fraction of Inspired Oxygen 21 05/02/24 08:52 05/02/24 08:55 05/02/24 09:04 Temperature Pulse Rate 90 90 87 Respiratory Rate 18 18 18 Blood Pressure Pulse Oximetry 94 Oxygen Delivery Room Air Fraction of Inspired Oxygen 05/02/24 11:25 05/02/24 10:00 05/02/24 12:00 Temperature 97.8 F Pulse Rate 86 80 98 Respiratory Rate 20 Blood Pressure 147/90 H Pulse Oximetry 96 Oxygen Delivery Fraction of Inspired Oxygen 05/02/24 12:00 05/02/24 12:42 05/02/24 12:51 Temperature Pulse Rate 86 92 Respiratory Rate 18 18 Blood Pressure Pulse Oximetry Oxygen Delivery Room Air Fraction of Inspired Oxygen Intake/Output Intake/Output: Intake & Output 04/29/24 04/30/24 05/01/24 05/02/24 23:59 23:59 23:59 23:59 Intake Total 50 900 740 Output Total 870 600 Balance 50 30 140 Meds/Results Medications: Active Medications Generic Name Dose Route Start Last Admin Trade Name Freq PRN Reason Stop Dose Admin Acetaminophen 1,000 mg 05/01/24 00:44 Acetaminophen 500 Mg Tablet PO Q6H PRN Mild Pain (1-3) or Fever Al Hydrox/Mg Hydrox/Simethicone 30 ml 05/01/24 00:44 Mag Hydrox/Al Hydrox/Simeth 30 Ml Udc PO Q6H PRN Indigestion Albuterol/Ipratropium 3 ml 05/01/24 02:00 05/02/24 12:42 Ipratropium 0.5 Mg/Albuterol Sulfate 2.5 Mg Ampul.Neb 3 Ml INHALATION 3 ml Q6HRT TESSIE Administration Enoxaparin Sodium 40 mg 05/01/24 09:00 05/02/24 08:04 Enoxaparin 40 Mg/0.4 Ml Syringe SUB-Q 40 mg DAILY TESSIE Administration Furosemide 40 mg 05/02/24 09:00 Furosemide Inj 40 Mg/4 Ml Vial IV PUSH DAILY [facility] Ceftriaxone Sodium 1 gm in 50 mls @ 100 mls/hr 05/01/24 21:00 05/01/24 21:02 Rocephin 1 Gm/Ns 50 Ml IVPB 100 mls/hr Q24H TESSIE Administration Azithromycin 500 mg in 250 mls @ 250 mls/hr 05/01/24 21:00 05/01/24 21:02 Zithromax IVPB 250 mls/hr Q24H TESSIE Administration Morphine Sulfate 2 mg 05/01/24 00:44 Morphine Sulfate (*Crx) 2 Mg/Ml Inj IV PUSH Q4H PRN Pain Rated 7-10 Ondansetron HCl 4 mg 05/01/24 00:44 Ondansetron Inj 4 Mg/2 Ml Vial IV PUSH Q6H PRN Nausea And Vomiting Polyethylene Glycol 17 gm 05/01/24 00:44 Polyethylene Glycol 3350 17 Gm Powd.Pack PO QAM PRN Constipation Prednisone 40 mg 05/02/24 08:00 05/02/24 08:04 Prednisone 20 Mg Tablet PO 40 mg DAILY@0800 TESSIE Administration Radiology Results: ITS Impressions Chest CTA 04/30/24 21:11 IMPRESSION: 1. Mild pulmonary edema. 2. Mild airspace opacities in left lung upper lobe, consistent with pulmonary edema versus pneumonia. 3. Moderate-sized right and small left pleural effusions. 4. No pulmonary embolus. Sensitivity is moderately decreased by motion artifact. 5. Partially visualized severe atrophy of left kidney. Left hydronephrosis. Abdomen/Pelvis CT 05/01/24 15:04 IMPRESSION: 1. Moderate-sized right and small left pleural effusions. 2. Severe atrophy of left kidney. No hydronephrosis. Chest X-Ray 05/01/24 16:46 IMPRESSION: 1. Moderate-sized right pleural effusion with improvement status post thoracentesis. 2. Cardiomegaly. Thoracentesis Ultrasound 05/01/24 17:31 IMPRESSION: 1. Successful ultrasound-guided thoracentesis yielding 1900 mL of thin yellow fluid. Labs Labs: Laboratory Results - last 24 hr 05/01/24 05/02/24 16:41 04:04 WBC 13.5 H RBC 4.21 L Hgb 13.0 L Hct 39.7 L MCV 94.3 MCH 30.9 MCHC 32.7 RDW 11.5 Plt Count 302 MPV 10.2 Immature Gran % (Auto) 0.4 Neut % (Auto) 85.7 H Lymph % (Auto) 6.7 L [place] % (Auto) 7.0 Eos % (Auto) 0.1 Baso % (Auto) 0.1 L Lymph # (Auto) 0.90 [place] # (Auto) 1.0 H Eos # (Auto) 0.0 Baso # (Auto) 0.0 Abs Immat Gran (auto) 0.05 H Absolute Neuts (auto) 11.6 H Absolute Nucleated RBC 0.000 Nucleated RBC % 0.0 Sodium 139 Potassium 4.1 Chloride 104 Carbon Dioxide 26 Anion Gap 9 BUN 34 H Creatinine 1.60 H Estim Creat Clear Calc 41 Estimated GFR 42 L Glucose 131 H Calcium 9.6 Magnesium 2.5 H Total Bilirubin 0.5 AST 23 ALT 14 Alkaline Phosphatase 55 Total Protein 8.0 Albumin 4.1 Pleural Fluid Source Pleural fluid Pleural Color Yellow Pleural Appearance Cloudy Pleural pH > 7.500 H Pleural RBC TNP Pleural Nuc Cells TNP Pleural Neutrophils 24 Pleural Lymphocytes 45 Pleural Monocytes 6 Pleural Macrophages 20 Pleural Mesothelial 4 Pleural Other Cells 1
[2024-05-02] MEDS: DOXYCYCLINE HYCLATE 100 MG TABLET PO (22:49)
--- NOTE | 2024-05-02 23:35 | PC.NURSE ---
RECEIVED PT VIA WHEELCHAIR FROM IMU [phone] TO ROOM 261. PT BELONGINGS AT BEDSIDE
[2024-05-03] VITALS (15 sets, daily range): BP systolic 148–165; BP diastolic 88–95; PULSE 73–94; RESP 16–20; TEMP 36.3–36.6; O2SAT 94–100
[2024-05-03] MEDS: IPRATROPIUM 0.5 MG/ALBUTEROL SULFATE 2.5 MG AMPUL.NEB 3 ML INHALATION ×4 (02:20→21:11)
[2024-05-03 06:14] LABS: MRSA (PCR) NOT DETECTED (NOT DETECTE)
[2024-05-03 06:47] LABS: Anion Gap 4 mmol/L (4-12); Blood Urea Nitrogen 34 mg/dL (9-20); Calcium 9.5 mg/dL (8.4-10.2); Carbon Dioxide 26 mmol/L (22-30); Chloride 107 mmol/L (98-107); Cholesterol 165 mg/dL (0-200); Estimated CRCL calculation 43 ml/min; Estimated Glomerular Filt Rate 46; Glucose 108 mg/dL (65-110); HDL Direct 42 mg/dL; Phosphorus 3.2 mg/dL (2.5-4.5); Sodium 137 mmol/L (137-145); Triglycerides 87 mg/dL (<150)
[2024-05-03 06:58] LABS: LDL Cholesterol Direct 86 mg/dL
[2024-05-03] MEDS: ENOXAPARIN 40 MG/0.4 ML SYRINGE SUB-Q (08:41)
[2024-05-03] MEDS: predniSONE 20 MG TABLET 40 MG PO (08:41)
[2024-05-03] MEDS: DOXYCYCLINE HYCLATE 100 MG TABLET PO ×2 (08:41→21:01)
--- NOTE | 2024-05-03 09:51 | PM.IMPN ---
Progress Note: A&P Assessment and Plan (1) Pneumonia: Qualifiers: Laterality: left Lung location: upper lobe of lung Pneumonia type: due to unspecified organism Qualified Code(s): J18.9 - Pneumonia, unspecified organism Code(s): J18.9 - Pneumonia, unspecified organism Status: Acute Assessment and Plan: Patient presents with SOB. WBC was normal. DDimer positive at 2.24. CTA chest showing no obvious PE but mild pulmonary edema, left upper lobe opacity and moderate right and mild left pleural effusion. LE venous Doppler negative for DVT COVID, influenza and RSV PCR negative. Patient is started on Rocephin and Zithromax after appropriate cultures obtained. BCx NGTD WBC higher related to steroids. Weaned to room air Check MRSA nasal swab. Change to oral Doxycycline to complete 5 days. Extend to 7 days total if MRSA +. Continue Rocephin MRSA negative 05/03 if home tomorrow- will downgrade rocephin to po med- prob augmentin (2) New onset of congestive heart failure: Code(s): I50.9 - Heart failure, unspecified Status: Acute Assessment and Plan: CTA chest as above. BNP elevated at 7260. Lasix IV once in the ED. Cr was 1.3 but now up to 1.6. Echo with elevated RAP (15), enlarged LV with thickened wall and mildly reduced EF 45-50%. Moderate and mild MR. Hold further Lasix dosing. No prior diagnosis of congestive heart failure. Cardiology consulted- awaiting recommendations -monitor for edema, sob, i/o (3) Elevated troponin: Code(s): R79.89 - Other specified abnormal findings of blood chemistry Status: Acute Assessment and Plan: Troponin mildly elevated at 0.044 and flat. EKG showing NSR, PVCs, possible LAE, consider anterior infarct, borderline ST-T wave changes inf/lat leads No old EKGs to compare. Repeat EKG showing no change Suspect troponin leak related to CHF (4) Pleural effusion: Code(s): J90 - Pleural effusion, not elsewhere classified Status: Acute Assessment and Plan: CTA chest showing R>L pleural effusion Patient underwent ultrasound-guided thoracentesis yesterday pH >7.5. No RBC./WBC. 24% PMNs, 45% lymph, 20% Macrophages. Cytology pending. Add pleural culture if able. Other studies pending (5) COPD (chronic obstructive pulmonary disease): Code(s): J44.9 - Chronic obstructive pulmonary disease, unspecified Status: Acute Assessment and Plan: Patient with possible COPD exacerbation. 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 Assuming care. Pt reports no acute events overnight. Some cough. Plan to be discharged home- anticipate discharge tomorrow. Cardiology was consulted but have not seen him yet. He still gets somewhat sob, denies any BLE edema. Review of Systems Review of Systems: Persistent productive cough of white thick sputum, shortness of breath. All systems reviewed & are unremarkable except as noted in HPI and below Exam Narrative: AF 97.8 147/90 92 18 96% ra Gen - NARD Chest - decreased BS in the right base with crackles mid and lower lung field; no wheezing CV - RRR S1/S2. No JVD. Tele showing NSR with one episode of probably atrial tachycardia. Abd - Soft, NT/ND, Positive BS Ext - No pedal edema Neuro - Alert and oriented. Nonfocal exam. Psych - Nml mood and affect Skin - Warm and dry Const: General: cooperative, comfortable, no acute distress, well developed, alert, awake, ill appearing chronically and average body habitus Nutritional Appearance: average body habitus Orientation/consciousness: patient oriented x3 Other: on supplemental oxygen by nasal can HENMT: Head: normal to inspection, normocephalic and atraumatic Ears: hearing grossly normal bilaterally Face/Nose/Sinus: normal facial exam Face and sinus: normal facial exam Eyes: General: appearance normal, both eyes and all related structures Pupils: Equal, round and reactive pupils present EOM: EOMs intact bilaterally Neck: Neck: full ROM, no lymphadenopathy and no JVD Thyroid: thyroid normal Lymphatic: no lymphadenopathy noted Resp: Effort & Inspection: normal respiratory effort and able to speak in complete sentences Auscultation: crackles, rales and diminished lung sounds Cardio: Jugular venous distension: no JVD Rate: regular rate Rhythm: regular rhythm Heart sounds: S1 normal heart sound present and S2 normal heart sound present : General: Yes deferred Skin: Rashes: no rashes Wounds: no wounds Neuro: General: patient oriented x3, CN's II-XI intact bilaterally and Unable to assess gait Cranial nerves: Yes CN's II-XII intact bilaterally and Yes Equal, round and reactive pupils present Cognition (Neuro): normal cognition Speech: normal speech Gait exam (Neuro): Unable to assess gait Motor exam (neuro): 5/5 motor strength present throughout Extrem: General: normal to inspection, full ROM, no joint enlargement and no pedal edema Objective Data Vital Signs Vital Signs: Vital Signs - 24 hr 05/02/24 11:25 05/02/24 10:00 05/02/24 12:00 Temperature 97.8 F Pulse Rate 86 80 98 Respiratory Rate 20 Blood Pressure 147/90 H Pulse Oximetry 96 Oxygen Delivery Fraction of Inspired Oxygen 05/02/24 12:00 05/02/24 12:42 05/02/24 12:51 Temperature Pulse Rate 86 92 Respiratory Rate 18 18 Blood Pressure Pulse Oximetry Oxygen Delivery Room Air Fraction of Inspired Oxygen 05/02/24 15:37 05/02/24 14:00 05/02/24 16:00 Temperature 98.1 F Pulse Rate 89 86 Respiratory Rate 20 Blood Pressure 137/87 Pulse Oximetry 99 Oxygen Delivery Room Air Fraction of Inspired Oxygen 05/02/24 16:00 05/02/24 18:00 05/02/24 20:00 Temperature 97.7 F Pulse Rate 85 85 91 Respiratory Rate 20 Blood Pressure 140/86 Pulse Oximetry 96 Oxygen Delivery Fraction of Inspired Oxygen 05/02/24 20:16 05/02/24 20:16 05/02/24 20:26 Temperature Pulse Rate 96 92 Respiratory Rate 18 18 Blood Pressure Pulse Oximetry 94 Oxygen Delivery Room Air Fraction of Inspired Oxygen 05/02/24 20:00 05/03/24 02:20 05/03/24 02:30 Temperature Pulse Rate 92 88 84 Respiratory Rate 18 18 18 Blood Pressure Pulse Oximetry 94 Oxygen Delivery Room Air Fraction of Inspired Oxygen 21 05/03/24 05:03 05/03/24 06:21 05/03/24 09:02 Temperature 97.8 F Pulse Rate 91 87 Respiratory Rate 16 Blood Pressure 165/95 H Pulse Oximetry 95 95 Oxygen Delivery Room Air Fraction of Inspired Oxygen 05/03/24 09:02 05/03/24 09:11 Temperature Pulse Rate 93 86 Respiratory Rate 20 20 Blood Pressure Pulse Oximetry Oxygen Delivery Fraction of Inspired Oxygen Intake/Output Intake/Output: Intake & Output 04/30/24 05/01/24 05/02/24 05/03/24 23:59 23:59 23:59 23:59 Intake Total 50 950 1810 200 Output Total 870 1900 400 Balance 50 80 -90 -200 Meds/Results Medications: Active Medications Generic Name Dose Route Start Last Admin Trade Name Freq PRN Reason Stop Dose Admin Acetaminophen 1,000 mg 05/01/24 00:44 Acetaminophen 500 Mg Tablet PO Q6H PRN Mild Pain (1-3) or Fever Al Hydrox/Mg Hydrox/Simethicone 30 ml 05/01/24 00:44 Mag Hydrox/Al Hydrox/Simeth 30 Ml Udc PO Q6H PRN Indigestion Albuterol/Ipratropium 3 ml 05/01/24 02:00 05/03/24 09:00 Ipratropium 0.5 Mg/Albuterol Sulfate 2.5 Mg Ampul.Neb 3 Ml INHALATION 3 ml Q6HRT TESSIE Administration Doxycycline Hyclate 100 mg 05/02/24 21:00 05/03/24 08:41 Doxycycline Hyclate 100 Mg Tablet PO 05/05/24 09:01 100 mg Q12HR TESSIE Administration Enoxaparin Sodium 40 mg 05/01/24 09:00 05/03/24 08:41 Enoxaparin 40 Mg/0.4 Ml Syringe SUB-Q 40 mg DAILY TESSIE Administration Ceftriaxone Sodium 1 gm in 50 mls @ 100 mls/hr 05/01/24 21:00 05/02/24 22:46 Rocephin 1 Gm/Ns 50 Ml IVPB 100 mls/hr Q24H TESSIE Administration Morphine Sulfate 2 mg 05/01/24 00:44 Morphine Sulfate (*Crx) 2 Mg/Ml Inj IV PUSH Q4H PRN Pain Rated 7-10 Ondansetron HCl 4 mg 05/01/24 00:44 Ondansetron Inj 4 Mg/2 Ml Vial IV PUSH Q6H PRN Nausea And Vomiting Polyethylene Glycol 17 gm 05/01/24 00:44 Polyethylene Glycol 3350 17 Gm Powd.Pack PO QAM PRN Constipation Prednisone 40 mg 05/02/24 08:00 05/03/24 08:41 Prednisone 20 Mg Tablet PO 40 mg DAILY@0800 TESISE Administration Radiology Results: ITS Impressions Chest CTA 04/30/24 21:11 IMPRESSION: 1. Mild pulmonary edema. 2. Mild airspace opacities in left lung upper lobe, consistent with pulmonary edema versus pneumonia. 3. Moderate-sized right and small left pleural effusions. 4. No pulmonary embolus. Sensitivity is moderately decreased by motion artifact. 5. Partially visualized severe atrophy of left kidney. Left hydronephrosis. Abdomen/Pelvis CT 05/01/24 15:04 IMPRESSION: 1. Moderate-sized right and small left pleural effusions. 2. Severe atrophy of left kidney. No hydronephrosis. Chest X-Ray 05/01/24 16:46 IMPRESSION: 1. Moderate-sized right pleural effusion with improvement status post thoracentesis. 2. Cardiomegaly. Thoracentesis Ultrasound 05/01/24 17:31 IMPRESSION: 1. Successful ultrasound-guided thoracentesis yielding 1900 mL of thin yellow fluid. Venous Doppler Study 05/02/24 15:16 IMPRESSION: 1. No deep venous thrombosis. Labs Labs: Laboratory Results - last 24 hr 05/03/24 05/03/24 05:01 06:11 Sodium 137 Potassium 4.0 Chloride 107 Carbon Dioxide 26 Anion Gap 4 BUN 34 H Creatinine 1.50 H Estim Creat Clear Calc 43 Estimated GFR 46 L Glucose 108 Calcium 9.5 Phosphorus 3.2 Albumin 4.0 Triglycerides 87 Cholesterol 165 LDL Cholesterol Direct 86 HDL Direct 42 Nasal MRSA (PCR) Not detected
--- NOTE | 2024-05-03 11:00 | P.CONCA_ITS ---
Assessment and Plan Assessment and plan (1) New onset of congestive heart failure: Code(s): I50.9 - Heart failure, unspecified Status: Acute (2) Elevated troponin: Code(s): R79.89 - Other specified abnormal findings of blood chemistry Status: Acute Plan 1. Type 2 MO 2. Moderate aortic Stenosis Vmax 322, MG 31, DON 1.15 (continuity), DON 1.2 (planimetry, SVi 35 3. Systolic heart Failure NYHA II, Stage C EF 45-50% Etiology: not knonw yet 4. COPD 5. PNA 6. R Pleural Effusion s/p thoracentesis, cytology pending 7. SHERRI 8. Chromic smoker - it is my clinical impression that most likely has underlying coronary artery disease and with his presentation with COPD exacerbation, pneumonia, mod he had manifested as a rise in troponin - he will need a cardiac catheterization to delineate his coronary anatomy. however I think would be appropriate to do it as an outpatient after the renal function has improved and also we are aware as to the etiology of the right- sided pleural effusion - he also has moderate aortic stenosis for which he will need echo every 6 months - will start him on aspirin 81 mg once daily, who atorvastatin 40 mg once daily and metoprolol succinate 25 mg once daily - he will need guideline directed medical therapy for heart failure; ALEXANDER/ARB/ARNI, MRA and SGLT2. His medications can be optimized as an outpatient thank you for allowing me to partake in the care of this pleasant gentleman. please call me with any questions or concerns History of Present Illness History of Present Illness Consult date/time: 05/03/24 11:00 Reason For Visit: New onset CHF, Pneumonia Narrative: Mr Rigo Caballero is a 78-year-old pleasant gentleman was admitted with right upper lobe pneumonia, right pleural effusion status post thoracentesis, congestive heart failure, COPD with exacerbation. His troponins were found to be elevated but had a flat biomarker profile. He underwent right-sided thoracentesis cytology is pending for his pleural effusion. Cardiology consulted because the echo showed an EF of 45-50% and moderate . 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 Is occasional chest heaviness as well He denies any dizziness, lightheadedness, syncope Currently denies any chest pain EKG shows normal sinus rhythm, poor R-wave progression in precordial leads - echo shows an EF of 45-50%, moderate aortic stenosis: MG 31 mmHg, and aortic valve area of 1.15 cm2. SVI 35, Don by planimetry 1.2. Review of Systems Review of Systems: Persistent productive cough of white thick sputum, shortness of breath. All systems reviewed & are unremarkable except as noted in HPI and below PMFSH Family History Family History (Updated 04/30/24 @ 22:56 by Rain Casillas RN) Father Acute myocardial infarction Hypertension Sibling Acute myocardial infarction Social History Social History Smoking status: Former smoker Alcohol intake: current Drinks per week: 5 Substance use type: does not use Do You Feel Safe in your Home?: Yes Lack of Transportation: No Lack of Food: Never True Current Housing: I Have Housing Concerned About Future Housing: No Difficulty Paying Gas/Electric Bills: No Difficulty Paying for Meds: No Currently Unemployed: No Education: High School Diploma/GED Difficulty w/ Childcare or Family Care: No Spiritual care concerns: No Meds Home Medications and Allergies Home Medications Medication Instructions Recorded Confirmed Type No Home Medications 04/30/24 04/30/24 History Allergies Allergy/AdvReac Type Severity Reaction Status Date / Time No Known Allergies Allergy Verified 04/30/24 14:34 Vital Signs Vital Signs - 24 hr 05/02/24 11:25 05/02/24 12:00 05/02/24 12:00 Temperature 36.6 C Pulse Rate 86 98 Respiratory Rate 20 Blood Pressure 147/90 H Pulse Oximetry 96 Oxygen Delivery Room Air Fraction of Inspired Oxygen 05/02/24 12:42 05/02/24 12:51 05/02/24 15:37 Temperature 36.7 C Pulse Rate 86 92 89 Respiratory Rate 18 18 20 Blood Pressure 137/87 Pulse Oximetry 99 Oxygen Delivery Fraction of Inspired Oxygen 05/02/24 14:00 05/02/24 16:00 05/02/24 16:00 Temperature Pulse Rate 86 85 Respiratory Rate Blood Pressure Pulse Oximetry Oxygen Delivery Room Air Fraction of Inspired Oxygen 05/02/24 18:00 05/02/24 20:00 05/02/24 20:16 Temperature 36.5 C Pulse Rate 85 91 96 Respiratory Rate 20 18 Blood Pressure 140/86 Pulse Oximetry 96 Oxygen Delivery Fraction of Inspired Oxygen 05/02/24 20:16 05/02/24 20:26 05/02/24 20:00 Temperature Pulse Rate 92 92 Respiratory Rate 18 18 Blood Pressure Pulse Oximetry 94 94 Oxygen Delivery Room Air Room Air Fraction of Inspired Oxygen 05/03/24 02:20 05/03/24 02:30 05/03/24 05:03 Temperature Pulse Rate 88 84 91 Respiratory Rate 18 18 Blood Pressure Pulse Oximetry Oxygen Delivery Fraction of Inspired Oxygen 05/03/24 06:21 05/03/24 09:02 05/03/24 09:02 Temperature 36.6 C Pulse Rate 87 93 Respiratory Rate 16 20 Blood Pressure 165/95 H Pulse Oximetry 95 95 Oxygen Delivery Room Air Fraction of Inspired Oxygen 05/03/24 09:11 05/03/24 08:15 05/03/24 08:15 Temperature Pulse Rate 86 94 Respiratory Rate 20 Blood Pressure Pulse Oximetry Oxygen Delivery Room Air Fraction of Inspired Oxygen Exam Narrative: AF 97.8 147/90 92 18 96% ra Gen - NARD Chest - decreased BS in the right base with crackles mid and lower lung field; no wheezing CV - RRR S1/S2. No JVD. Tele showing NSR with one episode of probably atrial tachycardia. Abd - Soft, NT/ND, Positive BS Ext - No pedal edema Neuro - Alert and oriented. Nonfocal exam. Psych - Nml mood and affect Skin - Warm and dry Const: General: cooperative, comfortable, no acute distress, well developed, alert, awake, ill appearing chronically and average body habitus Nutritional Appearance: average body habitus Orientation/consciousness: patient oriented x3 Other: on supplemental oxygen by nasal can HENMT: Head: normal to inspection, normocephalic and atraumatic Ears: he aring grossly normal bilaterally Face/Nose/Sinus: normal facial exam Face and sinus: normal facial exam Eyes: General: appearance normal, both eyes and all related structures Pu pils: Equal, round and reactive pupils present EOM: EOMs intact bilaterally Neck: Neck: full ROM, no lymphadenopathy and no JVD Thyroid: thyroid normal Lymphatic: no lymphadenopathy noted Resp: Effort & Inspection: normal respiratory effort and able to speak in complete sentences Auscultation: crackles, rales and diminished lung sounds Cardio: Jugular venous distension: no JVD Rate: regular rate Rhythm: regular rhythm Heart sounds: S1 normal heart sound present and S2 normal heart sound present : General: Yes deferred Skin: Rashes: no rashes Wounds: no wounds Neuro: General: patient oriented x3, CN's II-XI intact bilaterally and Unable to assess gait Cranial nerves: Yes CN's II-XII intact bilaterally and Yes E qual, round and reactive pupils present Cognition (Neuro): normal cognition Speech: normal speech Gait exam (Neuro): Unable to assess gait Motor exam (neuro): 5/5 motor strength present throughout Extrem: General: normal to inspection, full ROM, no joint enlargement and no pedal edema Results Labs and Meds 05/02/24 04:04 05/03/24 06:11 Lab results: Lipids 05/03/24 Range/Units 06:11 Triglycerides 87 (<150) mg/dL Cholesterol 165 (0-200) mg/dL Comprehensive Metabolic Panel 05/03/24 Range/Units 06:11 Sodium 137 (137-145) mmol/L Potassium 4.0 (3.4-5.0) mmol/L Chloride 107 (98-107) mmol/L Carbon Dioxide 26 (22-30) mmol/L BUN 34 H (9-20) mg/dL Creatinine 1.50 H (0.7-1.3) mg/dL Glucose 108 (65-110) mg/dL Calcium 9.5 (8.4-10.2) mg/dL Albumin 4.0 (3.5-5.1) g/dL Intake and Output 05/02/24 05/03/24 05/03/24 23:59 07:59 15:59 Intake Total 830 200 240 Output Total 1300 400 Balance -470 -200 240 Intake: Oral 830 200 240 Output: Urine 650 Catheter Urine 650 400 External/Condom 650 400 Other: Number of Bowel Movements Today 1 Patient Weight 05/03/24 23:59 Weight 93.3 kg
[2024-05-04] VITALS (13 sets, daily range): BP systolic 133–166; BP diastolic 67–80; PULSE 74–95; RESP 16–20; TEMP 36.7–36.9; O2SAT 95–96
[2024-05-04] MEDS: IPRATROPIUM 0.5 MG/ALBUTEROL SULFATE 2.5 MG AMPUL.NEB 3 ML INHALATION ×3 (01:55→13:27)
--- NOTE | 2024-05-04 03:34 | PC.NURSE ---
charting reviewed for Dung Roman RNLP for this shift
[2024-05-04] MEDS: ENOXAPARIN 40 MG/0.4 ML SYRINGE SUB-Q (08:45)
[2024-05-04] MEDS: DOXYCYCLINE HYCLATE 100 MG TABLET PO (08:45)
[2024-05-04] MEDS: predniSONE 20 MG TABLET 40 MG PO (08:45)
[2024-05-04] MEDS: METOPROLOL SUCCINATE EXT REL 25 MG TABCR PO (08:45)
[2024-05-04] MEDS: ASPIRIN 81 MG ENTERIC TABLET PO (08:45)
[2024-05-04] MEDS: ATORVASTATIN 40 MG TABLET PO (08:45)
--- NOTE | 2024-05-04 14:26 | P.DS_ITS ---
DS: Admitting Diagnosis Discharge Date 05/04 Admitting Diagnosis sob DS: Discharge Diagnosis Discharge Diagnosis (1) Pneumonia: Qualifiers: Laterality: left Lung location: upper lobe of lung Pneumonia type: due to unspecified organism Qualified Code(s): J18.9 - Pneumonia, unspecified organism Code(s): J18.9 - Pneumonia, unspecified organism Status: Acute Assessment and Plan: Patient presents with SOB. WBC was normal. DDimer positive at 2.24. CTA chest showing no obvious PE but mild pulmonary edema, left upper lobe opacity and moderate right and mild left pleural effusion. LE venous Doppler negative for DVT COVID, influenza and RSV PCR negative. Patient is started on Rocephin and Zithromax after appropriate cultures obtained. BCx NGTD WBC higher related to steroids. Weaned to room air Check MRSA nasal swab. Change to oral Doxycycline to complete 5 days. Extend to 7 days total if MRSA +. Continue Rocephin MRSA negative 05/03 if home tomorrow- will downgrade rocephin to po med- prob augmentin (2) New onset of congestive heart failure: Code(s): I50.9 - Heart failure, unspecified Status: Acute Assessment and Plan: CTA chest as above. BNP elevated at 7260. Lasix IV once in the ED. Cr was 1.3 but now up to 1.6. Echo with elevated RAP (15), enlarged LV with thickened wall and mildly reduced EF 45-50%. Moderate and mild MR. Hold further Lasix dosing. No prior diagnosis of congestive heart failure. Cardiology consulted- awaiting recommendations -monitor for edema, sob, i/o (3) Elevated troponin: Code(s): R79.89 - Other specified abnormal findings of blood chemistry Status: Acute Assessment and Plan: Troponin mildly elevated at 0.044 and flat. EKG showing NSR, PVCs, possible LAE, consider anterior infarct, borderline ST-T wave changes inf/lat leads No old EKGs to compare. Repeat EKG showing no change Suspect troponin leak related to CHF (4) Pleural effusion: Code(s): J90 - Pleural effusion, not elsewhere classified Status: Acute Assessment and Plan: CTA chest showing R>L pleural effusion Patient underwent ultrasound-guided thoracentesis yesterday pH >7.5. No RBC./WBC. 24% PMNs, 45% lymph, 20% Macrophages. Cytology pending. Add pleural culture if able. Other studies pending (5) COPD (chronic obstructive pulmonary disease): Code(s): J44.9 - Chronic obstructive pulmonary disease, unspecified Status: Acute Assessment and Plan: Patient with possible COPD exacerbation. He was started on DuoNebs and Solu- Medrol Solu-Medrol will change to oral prednisone Continue Prednisone (6) Tobacco dependence: Code(s): F17.200 - Nicotine dependence, unspecified, uncomplicated Status: Acute Assessment and Plan: Patient educated about the benefit of smoking cessation Plan Debility - PTOT DVT prophylaxis - Lovenox Code status - full DS: Summary Hospital Course Hospital Course: This is a 78-year-old male with past medical history significant for tobacco dependence, presumptive COPD patient apparently on no home meds. Presents to the emergency room with a history of 10 days of persistent cough productive of white thick sputum, shortness of breath with exertion, denies fevers, rigors, chills, body aches or pain, poor appetite, denies chest pain, denies leg swelling, patient states that he quit his smoking 10 days ago. Preliminary workup was significant for CT of the chest ruled out pulmonary emboli but showed large pleural effusion right-sided and pneumonia, troponins x3 0.044/0.040/0.37 patient tested negative for influenza type A influenza type B COVID and RSV, brain natriuretic peptide of 7000, D-dimer 2.24. Patient has been admitted for further evaluation management and treatment. # pneumonia Ultrasound guided thoracentesis Patient is started on Rocephin and Zithromax after appropriate cultures obt ained. BCx NGTD WBC higher related to steroids. Weaned to room air Check MRSA nasal swab- negative. Change to oral Doxycycline to complete 5 days. has 2 more doses left Rocephin downgraded to Augmentin, still needs 6 ore doses, last day- 05/07 0900 am # Heart failure, unspecified- nEW diagnosis Echocardiogram BNP elevated at 7260. No prior diagnosis of congestive heart failure. Does have bilateral pleural effusion right more than left on presentation. With associated mild pulmonary edema on CTA chest. He received a dose of Lasix. Cardiology consulted. it is my clinical impression that most likely has underlying coronary artery disease and with his presentation with COPD exacerbation, pneumonia, mod he had manifested as a rise in troponin - he will need a cardiac catheterization to delineate his coronary anatomy. however I think would be appropriate to do it as an outpatient after the renal function has improved and also we are aware as to the etiology of the right- sided pleural effusion - he also has moderate aortic stenosis for which he will need echo every 6 months - will start him on aspirin 81 mg once daily, who atorvastatin 40 mg once daily and metoprolol succinate 25 mg once daily - he will need guideline directed medical therapy for heart failure; ALEXANDER/ARB/ARNI, MRA and SGLT2. His medications can be optimized as an outpatient Statin, asa, Metoprol scrips were sent tpo phrmacy. Pt was started on 10 mg of jardiance and emmanuel rest of meds and appropriate titrations will be addressed during further follow up. Pt is instructed to keep daily weight, monitor for BLE edema, and chest pain, sob symptoms. Status at Discharge Functional status at discharge: independent ambulation Overall status at discharge: patient is progressing back to baseline Time Spent with Patient Time attestation: Total time spent providing and/or coordinating discharge services: Time spent: Greater than 30 minutes Exam Narrative: AF 97.8 147/90 92 18 96% ra Gen - NARD Chest - decreased BS in the right base with crackles mid and lower lung field; no wheezing CV - RRR S1/S2. No JVD. Tele showing NSR with one episode of probably atrial tachycardia. Abd - Soft, NT/ND, Positive BS Ext - No pedal edema Neuro - Alert and oriented. Nonfocal exam. Psych - Nml mood and affect Skin - Warm and dry Const: General: cooperative, comfortable, no acute distress, well developed, alert, awake, ill appearing chronically and average body habitus Nutritional Appearance: average body habitus Orientation/consciousness: patient oriented x3 Other: on supplemental oxygen by nasal can HENMT: Head: normal to inspection, normocephalic and atraumatic Ears: hearing grossly normal bilaterally Face/Nose/Sinus: normal facial exam Face and sinus: normal facial exam Eyes: General: appearance normal, both eyes and all related structures Pupils: Equal, round and reactive pupils present EOM: EOMs intact bilaterally Neck: Neck: full ROM, no lymphadenopathy and no JVD Thyroid: thyroid normal Lymphatic: no lymphadenopathy noted Resp: Effort & Inspection: normal respiratory effort and able to speak in complete sentences Auscultation: crackles, rales and diminished lung sounds Cardio: Jugular venous distension: no JVD Rate: regular rate Rhythm: regular rhythm Heart sounds: S1 normal heart sound present and S2 normal h eart sound present : General: Yes deferred Skin: Rashes: no rashes Wounds: no wounds Neuro: General: patient oriented x3, CN's II-XI intact bilaterally and Unable to assess gait Cranial nerves: Yes CN's II-XII intact bilaterally and Yes Equal, round and reactive pupils present Cognition (Neuro): normal cognition Speech: normal speech Gait exam (Neuro): Unable to assess gait Motor exam (neuro): 5/5 motor strength present throughout Extrem: General: normal to inspection, full ROM, no joint enlargement and no pedal edema DS: Data Data Completed and Pending Completed studies during hospitalization: Pending at discharge 05/01/24 16:41 Cytology [PTH] Routine Labs on day of discharge: Preliminary micro results at discharge 05/01/24 16:41 Anaerobic Culture - Preliminary Pleural Fluid Aerobic Culture - Preliminary 04/30/24 22:00 Blood Culture - Preliminary Blood 04/30/24 22:00 Blood Culture - Preliminary Blood Discharge Plan Discharge Attending physician on discharge: Flako Moreno Consulting providers: Megan Tucker Discharging Clinician: Bessie Vargas Patient Disposition: Home, Self-Care Activity: may shower Diet: as tolerated and heart healthy Discharge Instructions: please f/u with cardiology. call and get an rob. If you experience chest pain /shortness of breath- please report to er. Monitor your weight, first thing in am, and keep log. Monitor leg swelling. Increased leg swelling, weight gain and shortness of breath may indicate heart failure exacerbation. Cardiology started you on aspirin 81 mg once daily, atorvastatin 40 mg once daily and metoprolol succinate 25 mg once daily. I will sent a script for SGLT- 2, Jardiance 10 mg. all of these medications are part of heart failure regimen. you will have two antibiotics to take: augmentin-take 1 tab twice a day, am and pm, for total of 6 doses. Doxycycline 1 tab twice a day, you have 2 more doses left. Patient Instructions: Antibiotic Form, Heart Failure (DC), Pain Management (DC), High Troponin Levels (GEN) Stand Alone Forms: General Discharge Information Follow-up/Referrals: HendricksMegan sullivan DO [Physician] - 2 Weeks Discharge Medications: New atorvastatin 40 mg Tablet 40 mg PO DAILY Qty: 90 0RF aspirin 81 mg Tablet,Delayed Release (Dr/Ec) 81 mg PO QAM Qty: 90 0RF metoprolol succinate [Toprol XL] 25 mg Tablet Extended Release 24 Hr 25 mg PO QAM Qty: 90 0RF doxycycline hyclate 100 mg Tablet 100 mg PO Q12HR Qty: 2 0RF Jardiance 10 mg tablet 10 mg PO DAILY Qty: 90 0RF amoxicillin-pot clavulanate 875-125 mg tablet 1 tablet PO Q12H Qty: 6 0RF Date of admission: 05/02/24 16:11 Primary Care Provider: UNKNOWN,DOCTOR Admitting Provider: Hermelinda Babcock V. Attending physician on admission: Hermelinda Babcock V. Condition: Stable Hospitalist MIPS Heart Failure (Exclusion) Patient has history of Heart Transplant or Left Ventricular Assistive Device?: No IF YES, STOP HERE Heart Failure (Qualifier) Patient has current or prior documentation of LVEF less than or equal to 40%, or mod/servere depressed LVSF?: No IF NO, STOP HERE If Yes, Heart Failure (Qualifier) Patient was prescribed or already taking an Angiotensin-Converting Enzyme (ALEXANDER) Inhibitor, or Antiotensin Receptor Mateo (ARB): Yes Patient was prescribed or already taking bisoprolol, carvedilol, or sustained release metoprolol succinate: Yes
[2024-05-04 20:58] LABS: Adenosine Deaminase Pleural Fl 8.2 U/L (<9.2)
[2024-05-11 18:53] LABS: Albumin Pleural Fluid 2.3 g/dL; Glucose Pleural Fluid 153 mg/dL; LDH Pleural Fluid 164 U/L; Total Protein Pleural Fluid 3.8 g/dL
== END 2024-05-04 15:55 | disposition home or self-care (01) | DRG 194 ==
LOC: ANHED 21:24 → ANHIMU 22:14 → ANH2MED 05-02 23:35
PROVIDERS: Internal Medicine; Physician Assistant; Admitting Provider Internal Medicine; Emergency Provider Physician Assistant; Visit Provider Nurse Practitioner
DX: J18.9 Pneumonia, unspecified organism (principal); I50.20 Unspecified systolic (congestive) heart failure; J90 Pleural effusion, not elsewhere classified; J44.1 Chronic obstructive pulmonary disease with (acute) exacerbation; N17.9 Acute kidney failure, unspecified; I25.10 Atherosclerotic heart disease of native coronary artery without angina pectoris; I35.0 Nonrheumatic aortic (valve) stenosis; I11.0 Hypertensive heart disease with heart failure; Z20.822 Contact with and (suspected) exposure to COVID-19; Z87.891 Personal history of nicotine dependence; Z28.21 Immunization not carried out because of patient refusal
CPT/HCPCS: 32555; 36415; 71046; 71275; 74176; 80053; 80061; 80069; 81003; 82042; 82945; 83615; 83735; 83880; 83986; 84157; 84311; 84484; 85025; 85380; 85610; 85730; 87040; 87070; 87075; 87205; 87637; 87641; 88108; 88305; 89051; 93005; 93970; 94640; 96365; 96372; 96374; 96375; 97161; 97165; 99285; A9270; C8929; G0378; J0456; J0696; J1650; J1940; J2919; J7512; Q9957; Q9967

== ENCOUNTER 2024-06-14 01:56 | Inpatient (IN) | payer MEDICARE, OTHER, SELFPAY ==
[2024-06-14] VITALS (72 sets, daily range): BP systolic 100–183; BP diastolic 53–121; PULSE 68–102; RESP 17–37; TEMP 36.8; O2SAT 93–100; BMI 26.4
--- NOTE | ~2024-06-14 | XR_ITS ---
Portable chest x-ray Comparison: 05/01/2024 Clinical History: Chest pain Findings: Moderate right pleural effusion present with right basilar airspace disease. Probable mild left basilar atelectasis. Cardiomediastinal silhouette is stable. Bones and soft tissues are unrema rkable. Impression: Moderate right pleural effusion with right basilar atelectasis or possibly pneumonia. Probable minimal left basilar atelectasis. Stable cardiomegaly. Reviewed, dictated and finalized at [facility]. OF CYTOGENETICS Impression: Moderate right pleural effusion with right basilar atelectasis or possibly pneu monia. Probable minimal left basilar atelectasis. Stable cardiomegaly.
--- NOTE | ~2024-06-14 | US_ITS ---
EXAMINATION: US thoracentesis DATE: 06/19/2024 10:56 INDICATION: pleural effusion TECHNIQUE: The procedure and its risks, benefits, and alternatives were discussed with the patient. P otential risks discussed included bleeding, infection, and pneumothorax. The patient understood the r isks and agreed to proceed. The skin was prepped and draped in sterile fashion. 1% lidocaine was used for local anesthesia. Under ultrasound guidance, a 5 Fr catheter with trochar was advanced into the right pleural effusion. Fluid was aspirated. The catheter was removed, and a dressing was applied. Th ere were no immediate complications. FINDINGS: Ultrasound images demonstrate a right pleural effusion and the catheter within the fluid. IMPRESSION: 1. Successful ultrasound-guided thoracentesis yielding 1000 mL of yellow fluid. Reviewed, dictated and finalized at location A. FRAME OPERATOR IMPRESSION: 1. Successful ultrasound-guided thoracentesis yielding 1000 mL of yellow fluid .
--- NOTE | ~2024-06-14 | XR_ITS ---
EXAMINATION: [id number] DATE: 06/19/2024 10:36 INDICATION: Right pleural effusion status post thoracentesis. TECHNIQUE: A single frontal view of the chest was obtained. COMPARISON: Chest single view 06/14/2024 FINDINGS: There is a small right pleural effusion. There are airspace opacities at right lung base. T here is mild scarring at the lung apices. No pneumothorax. The heart size is normal. IMPRESSION: 1. Small right pleural effusion with improvement status post thoracentesis. 2. Improved airspace opacities at right lung base, likely atelectasis. Reviewed, dictated and finalized at location A. CTIONS COUNSELOR
--- NOTE | 2024-06-14 02:05 | ECG_ITS ---
Test Date: 2024-06-14 02:11:02 Measurements Intervals [place] Rate: 93 P: 20 OK: 164 QRS: 27 QRSD: 108 T: 81 QT: 405 QTc: 504 Interpretive Statements SINUS RHYTHM POSSIBLE LEFT ATRIAL ENLARGEMENT [-0.1mV P WAVE IN V1/V2] LEFT VENTRICULAR HYPERTROPHY AND ST-T CHANGE [VOLTAGE CRITERIA PLUS ST/T ABNORMALITY] Compared to ECG 04/30/2024 19:52:57 Left ventricular hypertrophy now present ST (T wave) deviation now present Electronically Signed On 06-18-2024 11:17:00 MECHANICAL DRAFTER by Mark Navarrete M.D.
[2024-06-14 02:38] LABS: Basophils Absolute Auto 0.1 K/mm3 (0.0-0.1); Basophils Percent Auto 0.5 % (0.2-1.2); Eosinophils Absolute Auto 0.1 K/mm3 (0-0.3); Eosinophils Percent Auto 0.9 % (0-4.4); Hematocrit 38.7 % (42.0-52.0); Hemoglobin 13.1 g/dL (14.0-18.0); Immature Granulocyte Absolute 0.03 K/mm3 (0.00-0.031); Immature Granulocyte Percent A 0.3 % (0-0.5); Lymphocytes Absolute Auto 1.19 K/mm3 (0.9-3.2); Lymphocytes Percent Auto 12.6 % (18.3-44.2); Mean Corpuscular HGB Conc 33.9 g/dl (32-36); Mean Corpuscular Hemoglobin 30.4 pg (26-34); Mean Corpuscular Volume 89.8 fl (80-100); Mean Platelet Volume 10.5 fl (7.4-10.4); Monocytes Absolute Auto 0.6 K/mm3 (0.1-0.6); Monocytes Percent Auto 6.3 % (2.6-8.5); Neutrophils Absolute Auto 7.5 K/mm3 (1.3-6.7); Neutrophils Percent Auto 79.4 % (45.5-73.1); Platelet Count Result 242 k/mm3 (150-375); Red Blood Count 4.31 M/mm3 (4.6-6.20); Red Cell Distribution Width 13.2 % (11.5-14.5); White Blood Count 9.5 K/mm3 (4.5-10.0)
[2024-06-14 02:49] LABS: Alanine Aminotransferase 28 U/L (6-50); Albumin Level 4.3 g/dL (3.5-5.1); Alkaline Phosphatase 91 U/L (38-126); Anion Gap 7 mmol/L (4-12); Aspartate Amino Transferase 32 U/L (17-59); Bilirubin,Total 1.5 mg/dL (0.2-1.3); Blood Urea Nitrogen 22 mg/dL (9-20); Calcium 9.5 mg/dL (8.4-10.2); Carbon Dioxide 23 mmol/L (22-30); Chloride 106 mmol/L (98-107); Estimated CRCL calculation 50 ml/min; Estimated Glomerular Filt Rate 54; Glucose 127 mg/dL (65-110); Lipase 81 U/L (23-300); Potassium 4.1 mmol/L (3.4-5.0); Sodium 136 mmol/L (137-145)
[2024-06-14 02:53] LABS: Partial Thromboplastin Time 34.2 Seconds (22.3-36.8); Prothrombin Time 14.1 Seconds (11.1-14.7)
[2024-06-14 02:58] LABS: NT Pro B Type Natriuretic Pept 15400 pg/mL (19.9-100)
[2024-06-14 03:03] LABS: Troponin I 0.052 ng/mL (0.000-0.034)
--- NOTE | 2024-06-14 03:05 | PC.NURSE ---
This RN tried to collect blood cultures. pt vein blew. Phlebotomy called.
[2024-06-14] MEDS: FUROSEMIDE INJ 40 MG/4 ML VIAL IV PUSH ×3 (03:11→17:46)
[2024-06-14] MEDS: ASPIRIN 81 MG CHEWABLE TABLET 324 MG PO (03:11)
[2024-06-14 03:15] LABS: Lactic Acid Reflex 1.2 mmol/L (0.7-2.0)
[2024-06-14 03:42] LABS: Influenza A QL RT-PCR Negative (Negative); Influenza B QL RT-PCR Negative (Negative); RSV RNA, RT-PCR Negative (Negative); SARS-CoV-2 RNA PCR Negative (Negative)
--- NOTE | 2024-06-14 05:03 | ED_ITS ---
HPI - General Adult General Chief complaint: Chest Pain Stated complaint: chest tightness Time Seen by Provider: 06/14/24 02:19 History of Present Illness HPI narrative: this is a 78-year-old male presenting ED with chief complaint chest pain. Patient was recently discharged from our hospital after being admitted for combination of new onset CHF COPD and pneumonia. Patient was discharged the only medications he has been taking are aspirin atorvastatin metoprolol. He is not on a diuretic. Since then he has become progressively more short of breath. He had an episode of left sided chest pain that resolved on his arrival to the ED. Patient denies fevers chills or productive cough. He does have lower extremity edema. Related Data Allergies Allergy/AdvReac Type Severity Reaction Status Date / Time No Known Allergies Allergy Verified 04/30/24 14:34 [facility] Family History Family History (Updated 04/30/24 @ 22:56 by Rain Casillas RN) Father Acute myocardial infarction Hypertension Sibling Acute myocardial infarction Social History Social History Smoking status: Former smoker Alcohol intake: current Drinks per week: 5 Substance use type: does not use Do You Feel Safe in your Home?: Yes Lack of Transportation: No Lack of Food: Never True Current Housing: I Have Housing Concerned About Future Housing: No Difficulty Paying Gas/Electric Bills: No Difficulty Paying for Meds: No Currently Unemployed: No Education: High School Diploma/GED Difficulty w/ Childcare or Family Care: No Spiritual care concerns: No Exam 2 Narrative: APPEARANCE: No apparent distress. Head: atraumatic. EYES: EOMI, NOSE: Atraumatic NECK: Trachea midline RESPIRATORY: Tachypneic, bibasilar crackles, CARDIOVASCULAR: RRR, pitting edema lower extremities ABDOMINAL: Non-distended soft nontender MUSCULOSKELETAl: No obvious deformities NEURO: Alert. Moving 4/4 extremities SKIN:: Warm, dry. Normal color PSYCHIATRIC: Normal affect Course Vital Signs Vital signs: Vital Signs Temperature 98.2 F 06/14/24 02:00 Pulse Rate 102 H 06/14/24 02:00 Respiratory Rate 24 H 06/14/24 02:00 Blood Pressure 171/102 H 06/14/24 02:00 Pulse Oximetry 94 06/14/24 02:00 Oxygen Delivery Room Air 06/14/24 02:00 Temperature 98.2 F 06/14/24 02:00 Pulse Rate 81 06/14/24 03:41 Respiratory Rate 37 H 06/14/24 03:41 Blood Pressure 148/99 H 06/14/24 03:41 Pulse Oximetry 97 06/14/24 03:41 Oxygen Delivery Room Air 06/14/24 02:24 Medical Decision Making MDM Narrative Medical decision making narrative: -Course: 7 78-year-old male was recently diagnosed with CHF presenting for chest pain, shortness of breath and lower extremity edema. The patient's chest pain resolved on arrival to the ED and he is currently pain free.Patient has bibasilar crackles. Pitting edema lower extremities. chest x-ray shows that his right-sided pleural effusion has accumulated in our infiltrates versus edema. no fevers and patient has a normal white count. BNP is over 15,000 and troponin slightly elevated 0.052. EKG without ischemic changes. Will continue to trend trop. Patient has been given a dose of IV Lasix. Patient will be admitted the hospital for congestive heart failure exacerbation. -DDX includes but is not limited to: CHF COPD pneumonia medication noncompliance -Independent interpretation of studies: Labs and imaging reviewed white count 9.5, hemoglobin 13.1, lactic 1.2 Metabolic panel within normal limits BNP 41413, troponin 0.052 go in fluid negative Independent EKG interpretation: Rhythm [sinus], Rate [93], [place] -[normal], [place] -[normal], QRS [narrow], QTC [normal], T waves -[negative for concerning inversions], ST Segments - [Negative for concerning elevations] Final interpretations: [Normal Sinus Rhythm] -Discussion of Management/Consultants: Sahil -Interventions: 40 mg Lasix -Shared decision making / Disposition: admitted Vital Signs Vital Signs: Vital Signs Temperature 98.2 F 06/14/24 02:00 Pulse Rate 102 H 06/14/24 02:00 Respiratory Rate 24 H 06/14/24 02:00 Blood Pressure 171/102 H 06/14/24 02:00 Pulse Oximetry 94 06/14/24 02:00 Oxygen Delivery Room Air 06/14/24 02:00 Temperature 98.2 F 06/14/24 02:00 Pulse Rate 81 06/14/24 03:41 Respiratory Rate 37 H 06/14/24 03:41 Blood Pressure 148/99 H 06/14/24 03:41 Pulse Oximetry 97 06/14/24 03:41 Oxygen Delivery Room Air 06/14/24 02:24 Lab Data 06/14/24 02:31 06/14/24 02:31 Labs: Lab Results 06/14/24 06/14/24 Range/Units 02:31 03:01 WBC 9.5 (4.5-10.0) K/mm3 RBC 4.31 L (4.6-6.20) M/mm3 Hgb 13.1 L (14.0-18.0) g/dL Hct 38.7 L (42.0-52.0) % MCV 89.8 (80-100) fl MCH 30.4 (26-34) pg MCHC 33.9 (32-36) g/dl RDW 13.2 (11.5-14.5) % Plt Count 242 (150-375) k/mm3 MPV 10.5 H (7.4-10.4) fl Immature Gran % (Auto) 0.3 (0-0.5) % Neut % (Auto) 79.4 H (45.5-73.1) % Lymph % (Auto) 12.6 L (18.3-44.2) % [place] % (Auto) 6.3 (2.6-8.5) % Eos % (Auto) 0.9 (0-4.4) % Baso % (Auto) 0.5 (0.2-1.2) % Lymph # (Auto) 1.19 (0.9-3.2) K/mm3 [place] # (Auto) 0.6 (0.1-0.6) K/mm3 Eos # (Auto) 0.1 (0-0.3) K/mm3 Baso # (Auto) 0.1 (0.0-0.1) K/mm3 Abs Immat Gran (auto) 0.03 (0.00-0.031) K/mm3 Absolute Neuts (auto) 7.5 H (1.3-6.7) K/mm3 Absolute Nucleated RBC 0.000 (0.0-0.012) K/mm3 Nucleated RBC % 0.0 (0.0-0.2) % PT 14.1 (11.1-14.7) Seconds INR 1.0 APTT 34.2 (22.3-36.8) Seconds Sodium 136 L (137-145) mmol/L Potassium 4.1 (3.4-5.0) mmol/L Chloride 106 (98-107) mmol/L Carbon Dioxide 23 (22-30) mmol/L Anion Gap 7 (4-12) mmol/L BUN 22 H D (9-20) mg/dL Creatinine 1.30 (0.7-1.3) mg/dL Estim Creat Clear Calc 50 ml/min Estimated GFR 54 L (59 - ) Glucose 127 H (65-110) mg/dL Lactic Acid 1.2 (0.7-2.0) mmol/L Calcium 9.5 (8.4-10.2) mg/dL Total Bilirubin 1.5 H (0.2-1.3) mg/dL AST 32 (17-59) U/L ALT 28 (6-50) U/L Alkaline Phosphatase 91 (38-126) U/L Troponin I 0.052 H* (0.000-0.034) ng/mL NT-Pro-B Natriuret Pep 70820 H (19.9-100) pg/mL Total Protein 8.0 (6.3-8.2) g/dL Albumin 4.3 (3.5-5.1) g/dL Lipase 81 (23-300) U/L Influenza A (RT-PCR) Negative (Negative) Influenza B (RT-PCR) Negative (Negative) RSV (RT-PCR) Negative (Negative) SARS-CoV-2 RNA (RT-PCR) Negative (Negative) Discharge Plan Discharge Patient Language: Tajik Prescriptions: No Action atorvastatin 40 mg Tablet 40 mg PO DAILY Qty: 90 0RF aspirin 81 mg Tablet,Delayed Release (Dr/Ec) 81 mg PO QAM Qty: 90 0RF metoprolol succinate [Toprol XL] 25 mg Tablet Extended Release 24 Hr 25 mg PO QAM Qty: 90 0RF doxycycline hyclate 100 mg Tablet 100 mg PO Q12HR Qty: 2 0RF Jardiance 10 mg tablet 10 mg PO DAILY Qty: 90 0RF amoxicillin-pot clavulanate 875-125 mg tablet 1 tablet PO Q12H Qty: 6 0RF Follow-up/Referrals: UNKNOWN,DOCTOR [Primary Care Provider] -
--- NOTE | 2024-06-14 05:35 | ECG_ITS ---
Test Date: 2024-06-14 05:40:12 Measurements Intervals [place] Rate: 79 P: 3 HI: 152 QRS: 22 QRSD: 103 T: 91 QT: 400 QTc: 460 Interpretive Statements SINUS RHYTHM POSSIBLE LEFT ATRIAL ENLARGEMENT [-0.1mV P-WAVE IN V1/V2] LEFT VENTRICULAR HYPERTROPHY AND ST-T CHANGE [VOLTAGE CRITERIA PLUS ST/T ABNORMALITY] Compared to ECG 06/14/2024 02:11:02 No significant changes Electronically Signed On 06-18-2024 11:18:58 SPORTS DIRECTOR by Mark Navarrete M.D.
[2024-06-14 06:16] LABS: Troponin I 0.049 ng/mL (0.000-0.034)
[2024-06-14 06:50] LABS: Procalcitonin 0.1 ng/mL
--- NOTE | 2024-06-14 08:19 | PC.NURSE ---
Called dietary and ordered breakfast tray for pt at this time.
--- NOTE | 2024-06-14 08:21 | ECG_ITS ---
Test Date: 2024-06-14 08:31:05 Measurements Intervals [place] Rate: 85 P: 21 MI: 158 QRS: 32 QRSD: 108 T: 60 QT: 387 QTc: 461 Interpretive Statements SINUS RHYTHM LEFT ATRIAL ENLARGEMENT [-0.15mV P WAVE IN V1/V2] LEFT VENTRICULAR HYPERTROPHY AND ST-T CHANGE [VOLTAGE CRITERIA PLUS ST/T ABNORMALITY] Compared to ECG 06/14/2024 05:40:12 No significant changes Electronically Signed On 06-18-2024 11:19:41 CONTINUOUS IMPROVEMENT DIRECTOR by Mark Navarrete M.D.
--- NOTE | 2024-06-14 08:29 | PM.IMHP ---
H&P: HPI History of Present Illness Date/Time: 06/14/24 08:29 Chief Complaint: Shortness of breath Narrative: this is a 78-year-old male presenting ED with chief complaint of shortness of breath and chest pain. Patient was recently discharged from our hospital after being admitted for combination of new onset CHF COPD and pneumonia. Patient was discharged the only medications he has been taking are aspirin atorvastatin metoprolol. He is not on a diuretic. Since then he has become progressively more short of breath. There is also associated increased lower extremity swelling. He had an episode of left sided chest pain that resolved on his arrival to the ED. Patient denies fevers chills or productive cough. He does have lower extremity edema. Review of Systems Review of Systems: - CONSTITUTIONAL: Denies weight loss, fever and chills. - HEENT: Denies changes in vision and hearing - RESPIRATORY: Reports SOB and denies cough. - CV: Denies palpitations and reports CP. - GI: Denies abdominal pain, nausea, vomiting and diarrhea. - : Denies dysuria and urinary frequency. - MSK: Denies myalgia and joint pain. - SKIN: Denies rash and pruritus. - NEUROLOGICAL: Denies headache and syncope. - PSYCHIATRIC: Denies recent changes in mood. Denies anxiety and depression. [facility] Family History Family History (Updated 04/30/24 @ 22:56 by Rain Casillas RN) Father Acute myocardial infarction Hypertension Sibling Acute myocardial infarction Social History Social History Smoking status: Former smoker Alcohol intake: current Drinks per week: 5 Substance use type: does not use Do You Feel Safe in your Home?: Yes Lack of Transportation: No Lack of Food: Never True Current Housing: I Have Housing Concerned About Future Housing: No Difficulty Paying Gas/Electric Bills: No Difficulty Paying for Meds: No Currently Unemployed: No Education: High School Diploma/GED Difficulty w/ Childcare or Family Care: No Spiritual care concerns: No Meds Home Medications and Allergies Home Medications ?Medication ?Instructions ?Recorded ?Confirmed ?Type amoxicillin 875 mg-potassium 1 tablet PO Q12H #6 tabs 05/04/24 Rx clavulanate 125 mg tablet aspirin 81 mg tablet,delayed 81 mg PO QAM #90 tabs 05/04/24 Rx release atorvastatin 40 mg tablet 40 mg PO DAILY #90 tabs 05/04/24 Rx doxycycline hyclate 100 mg tablet 100 mg PO Q12HR #2 tabs 05/04/24 Rx empagliflozin 10 mg tablet 10 mg PO DAILY #90 tabs 05/04/24 Rx (Jardiance) metoprolol succinate 25 mg 25 mg PO QAM #90 tabs 05/04/24 Rx tablet,extended release 24 hr (Toprol XL) Allergies Allergy/AdvReac Type Severity Reaction Status Date / Time No Known Allergies Allergy Verified 04/30/24 14:34 Vital Signs Vital Signs - 24 hr 06/14/24 02:00 06/14/24 02:24 06/14/24 02:27 Temperature 98.2 F Pulse Rate 102 H 91 Respiratory Rate 24 H Blood Pressure 171/102 H Pulse Oximetry 94 97 Oxygen Delivery Room Air Room Air 06/14/24 02:28 06/14/24 03:41 06/14/24 05:35 Temperature Pulse Rate 90 81 79 Respiratory Rate 29 H 37 H 17 Blood Pressure 183/115 H 148/99 H 155/105 H Pulse Oximetry 100 97 100 Oxygen Delivery 06/14/24 06:53 06/14/24 06:54 06/14/24 07:38 Temperature Pulse Rate 90 86 75 Respiratory Rate 20 18 Blood Pressure 175/113 H 158/95 H Pulse Oximetry 100 98 Oxygen Delivery Exam Narrative: APPEARANCE: Alert and oriented x3 No apparent distress. Head: atraumatic. EYES: EOMI, NOSE: Atraumatic NECK: Trachea midline RESPIRATORY: Clear to auscultation no respiratory distress CARDIOVASCULAR: RRR, 1+ pitting edema lower extremities ABDOMINAL: Non-distended soft nontender MUSCULOSKELETAl: No obvious deformities NEURO: Alert. Moving 4/4 extremities SKIN:: Warm, dry. Normal color PSYCHIATRIC: Normal affect H&P: Results Labs Labs: Short CBC 06/14/24 Range/Units 02:31 WBC 9.5 (4.5-10.0) K/mm3 Hgb 13.1 L (14.0-18.0) g/dL Hct 38.7 L (42.0-52.0) % Plt Count 242 (150-375) k/mm3 [facility] 06/14/24 02:31 Sodium 136 L Potassium 4.1 Chloride 106 Carbon Dioxide 23 BUN 22 H D Creatinine 1.30 Glucose 127 H Calcium 9.5 Cardiac Enzymes 06/14/24 06/14/24 Range/Units 02:31 05:43 Troponin I 0.052 H* 0.049 H* (0.000-0.034) ng/mL Liver Function 06/14/24 Range/Units 02:31 Total Bilirubin 1.5 H (0.2-1.3) mg/dL AST 32 (17-59) U/L ALT 28 (6-50) U/L Alkaline Phosphatase 91 (38-126) U/L Albumin 4.3 (3.5-5.1) g/dL Assessment and Plan Assessment and plan (1) New onset of congestive heart failure: Code(s): I50.9 - Heart failure, unspecified Status: Acute (2) Elevated troponin: Code(s): R79.89 - Other specified abnormal findings of blood chemistry Status: Acute (3) COPD (chronic obstructive pulmonary disease): Code(s): J44.9 - Chronic obstructive pulmonary disease, unspecified Status: Acute (4) Tobacco dependence: Code(s): F17.200 - Nicotine dependence, unspecified, uncomplicated Status: Acute (5) Pleural effusion: Code(s): J90 - Pleural effusion, not elsewhere classified Status: Acute Plan this is a 78-year-old male presenting ED with chief complaint of shortness of breath and chest pain. Patient was recently discharged from our hospital after being admitted for combination of new onset CHF COPD and pneumonia. Patient was discharged the only medications he has been taking are aspirin atorvastatin metoprolol. He is not on a diuretic. Since then he has become progressively more short of breath. There is also associated increased lower extremity swelling. He had an episode of left sided chest pain that resolved on his arrival to the ED. Patient denies fevers chills or productive cough. He does have lower extremity edema. In the ED evaluation his vitals were stable. Examination revealed bibasilar crackles with pitting edema in lower extremities. Laboratory data revealed normal WBC at 9.5 hemoglobin of 13.1 creatinine of 1.3 came panel otherwise unremarkable. Lactic acid was normal at 1.2. Mildly elevated troponin 0.052 [place] [address]. Influenza RSV COVID swab was negative. Chest x-ray revealed right-sided pleural effusion. Serial troponin has remained negative. Received a dose of Lasix which he states improved his symptoms Diagnosis acute on chronic congestive heart failure. Will restart diuresis with Lasix 40 mg IV b.i.d.. Will also add losartan He had received pleural effusion thoracentesis last admission. Echo at that time showed EF 45-50% moderate aortic valve stenosis. Cardiology was consulted Hypertension had losartan continue metoprolol COPD does not seem to be in exacerbation Moderate aortic stenosis noted on echocardiogram Systolic heart failure CKD stage 3 DVT prophylaxis Lovenox Code status full code Hospitalist [facility] Advance Care Plan I have confirmed that the patient's Advanced Care Plan is present, code status is documented, or surrogate decision maker is listed in patient medical record.: Yes Medication Reconciliation I have utilized all available resources to obtain, update and review the patients current medications (includes all prescriptions, OTC, herbals, cannabis, and nutritional supplements).: Yes
[2024-06-14 09:10] LABS: Troponin I 0.042 ng/mL (0.000-0.034)
[2024-06-14] MEDS: ENOXAPARIN 40 MG/0.4 ML SYRINGE SUB-Q (10:05)
[2024-06-14] MEDS: ASPIRIN 81 MG ENTERIC TABLET PO (11:02)
[2024-06-14] MEDS: LOSARTAN POTASSIUM 25 MG TABLET PO (11:02)
[2024-06-14] MEDS: ATORVASTATIN 40 MG TABLET PO (11:03)
[2024-06-14] MEDS: METOPROLOL SUCCINATE EXT REL 25 MG TABCR PO (11:03)
--- NOTE | 2024-06-14 23:34 | PC.NURSE ---
Assumed care of patient after receiving report from VANESA Liang @ [phone]
[2024-06-15] VITALS (15 sets, daily range): BP systolic 111–172; BP diastolic 52–98; PULSE 65–97; RESP 16–20; TEMP 36.4–36.7; O2SAT 94–100
[2024-06-15 06:27] LABS: Basophils Absolute Auto 0.1 K/mm3 (0.0-0.1); Basophils Percent Auto 1.2 % (0.2-1.2); Eosinophils Absolute Auto 0.4 K/mm3 (0-0.3); Eosinophils Percent Auto 5.6 % (0-4.4); Hematocrit 39.2 % (42.0-52.0); Hemoglobin 13.2 g/dL (14.0-18.0); Immature Granulocyte Absolute 0.02 K/mm3 (0.00-0.031); Immature Granulocyte Percent A 0.3 % (0-0.5); Lymphocytes Absolute Auto 1.56 K/mm3 (0.9-3.2); Lymphocytes Percent Auto 20.8 % (18.3-44.2); Mean Corpuscular HGB Conc 33.7 g/dl (32-36); Mean Corpuscular Hemoglobin 30.3 pg (26-34); Mean Corpuscular Volume 90.1 fl (80-100); Mean Platelet Volume 10.6 fl (7.4-10.4); Monocytes Absolute Auto 0.7 K/mm3 (0.1-0.6); Monocytes Percent Auto 9.3 % (2.6-8.5); Neutrophils Absolute Auto 4.7 K/mm3 (1.3-6.7); Neutrophils Percent Auto 62.8 % (45.5-73.1); Platelet Count Result 262 k/mm3 (150-375); Red Blood Count 4.35 M/mm3 (4.6-6.20); Red Cell Distribution Width 13.1 % (11.5-14.5); White Blood Count 7.5 K/mm3 (4.5-10.0)
[2024-06-15 06:40] LABS: Alanine Aminotransferase 24 U/L (6-50); Albumin Level 4.3 g/dL (3.5-5.1); Alkaline Phosphatase 84 U/L (38-126); Anion Gap 5 mmol/L (4-12); Aspartate Amino Transferase 31 U/L (17-59); Bilirubin,Total 1.6 mg/dL (0.2-1.3); Blood Urea Nitrogen 28 mg/dL (9-20); Calcium 9.6 mg/dL (8.4-10.2); Carbon Dioxide 29 mmol/L (22-30); Chloride 102 mmol/L (98-107); Estimated CRCL calculation 47 ml/min; Estimated Glomerular Filt Rate 49; Glucose 99 mg/dL (65-110); Magnesium 2.2 mg/dL (1.6-2.3); Potassium 4.2 mmol/L (3.4-5.0); Sodium 136 mmol/L (137-145)
--- NOTE | 2024-06-15 09:44 | PM.IMPN ---
Progress Note: A&P Assessment and Plan (1) CHF (congestive heart failure): Code(s): I50.9 - Heart failure, unspecified Status: Acute Assessment and Plan: Patient presents with SOB. CXR showing moderate right pleural effusion with right basilar atelectasis and cardiomegaly. BNP 11967 which is twice as high compared to last admission. Patient was hospitalized here in April 2024 for CHF. Echo in April 2024 showing severely increased LV wall thickness with reduced function with EF of 45-50% and moderate . He was discharged home on Lipitor, Toprol XL, aspirin and empagliflozin. No diuretics. He has been compliant with his home medication regiment. Etiology of his acute CHF is unclear. Consider dietary indiscretion given the recent holidays. Consider underlying ischemia. Patient started on IV diuretics with clinical improvement. Continue metoprolol XL. Cozaar added. Monitor daily weights, urine output and clinical exam. Cardiology consulted. CHF teaching (2) Elevated troponin: Code(s): R79.89 - Other specified abnormal findings of blood chemistry Status: Acute Assessment and Plan: Troponin elevated at 0.05 and flat on repeat. EKG shows sinus rhythm with LAE and LVH but no significant ST-T wave changes. Repeat EKG shows similar findings. Suspect type 2 UT related to CHF exacerbation. Continue aspirin, Lipitor and metoprolol. Monitor on telemetry. Cardiology consulted. (3) COPD (chronic obstructive pulmonary disease): Code(s): J44.9 - Chronic obstructive pulmonary disease, unspecified Status: Acute Assessment and Plan: Patient with underlying COPD related to his tobacco use. No wheezing appreciated. He is not on inhalers at home. Follow clinically at this time. (4) Pleural effusion: Code(s): J90 - Pleural effusion, not elsewhere classified Status: Acute Assessment and Plan: Pleural effusions noted on imaging. [place] related to CHF exacerbation. (5) Hypertension: Code(s): I10 - Essential (primary) hypertension Status: Acute Assessment and Plan: Patient's blood pressure was reviewed on 06/15/23 Blood pressure markedly elevated on admission but better controlled now. Will continue current medications. (6) Aortic stenosis: Code(s): I35.0 - Nonrheumatic aortic (valve) stenosis Status: Acute Assessment and Plan: Patient with moderate aortic stenosis by echocardiogram in April 2024. This will need to be followed outpatient. (7) Tobacco dependence: Code(s): F17.200 - Nicotine dependence, unspecified, uncomplicated Status: Acute Assessment and Plan: Patient was congratulated on smoking cessation. Plan DVT prophylaxis Lovenox Code status full code Subjective Date/time seen: 06/15/24 09:44 Interval history: 78yo male with CH and COPD here for SOB. Patient has noted increasing shortness of breath over the past week. He has been having dyspnea on exertion and some slight chest pain with exertion that only lasts a few seconds. No fever, chills or cough. No pleuritic chest pain. He does have orthopnea and increasing pedal edema. He quit smoking a month ago. On the day of admission, he had more shortness of breath with worsening stabbing chest pain. He feels ?great? today. No chest pain. He has been compliant with his home medications. He has not been able to see the [place] box cutter since last discharge. Exam Narrative: AF 98.2 172/92 77 17 96% ra Gen - NARD Neck - JVP about 7cm. Chest - few basilar rales. nml RR CV - RRR S1/S2 with 2/6 systolic murmur t/o precordium Abd - Soft, NT/ND, Positive BS Ext - trace pedal edema Neuro - Alert and appropriate Psych - Nml mood and affect Skin - Warm and dry Objective Data Vital Signs Vital Signs: Vital Signs - 24 hr 06/14/24 09:45 06/14/24 10:00 06/14/24 10:05 Pulse Rate 84 76 76 Respiratory Rate 21 H 21 H 26 H Blood Pressure 150/91 H Pulse Oximetry 99 Oxygen Delivery Oxygen Flow Rate 06/14/24 10:06 06/14/24 10:15 06/14/24 11:03 Pulse Rate 75 78 82 Respiratory Rate 25 H 19 Blood Pressure 150/91 H Pulse Oximetry 98 Oxygen Delivery Oxygen Flow Rate 06/14/24 11:07 06/14/24 11:15 06/14/24 11:30 Pulse Rate 80 76 Respiratory Rate 22 H 29 H Blood Pressure Pulse Oximetry 97 97 100 Oxygen Delivery Oxygen Flow Rate 06/14/24 11:45 06/14/24 12:00 06/14/24 12:15 Pulse Rate 68 72 74 Respiratory Rate 18 24 H 23 H Blood Pressure Pulse Oximetry 96 97 99 Oxygen Delivery Oxygen Flow Rate 06/14/24 12:30 06/14/24 12:45 06/14/24 13:00 Pulse Rate 75 76 79 Respiratory Rate 21 H 20 21 H Blood Pressure Pulse Oximetry 97 98 96 Oxygen Delivery Oxygen Flow Rate 06/14/24 13:03 06/14/24 13:03 06/14/24 13:05 Pulse Rate 79 80 Respiratory Rate 20 22 H Blood Pressure 150/98 H 150/98 H Pulse Oximetry 97 96 99 Oxygen Delivery Nasal Cannula Oxygen Flow Rate 2 06/14/24 13:15 06/14/24 13:30 06/14/24 13:45 Pulse Rate 81 79 78 Respiratory Rate 20 19 21 H Blood Pressure Pulse Oximetry 95 96 96 Oxygen Delivery Oxygen Flow Rate 06/14/24 14:00 06/14/24 14:01 06/14/24 14:15 Pulse Rate 80 76 80 Respiratory Rate 20 21 H 21 H Blood Pressure 133/77 Pulse Oximetry 96 96 95 Oxygen Delivery Oxygen Flow Rate 06/14/24 14:30 06/14/24 14:45 06/14/24 15:00 Pulse Rate 79 77 80 Respiratory Rate 25 H 24 H 24 H Blood Pressure 143/100 H Pulse Oximetry 98 96 95 Oxygen Delivery Oxygen Flow Rate 06/14/24 15:01 06/14/24 15:15 06/14/24 15:30 Pulse Rate 78 79 79 Respiratory Rate 27 H 23 H 26 H Blood Pressure Pulse Oximetry 96 95 95 Oxygen Delivery Oxygen Flow Rate 06/14/24 15:45 06/14/24 16:00 06/14/24 16:01 Pulse Rate 75 74 75 Respiratory Rate 22 H 17 21 H Blood Pressure 126/83 Pulse Oximetry 98 98 99 Oxygen Delivery Oxygen Flow Rate 06/14/24 16:15 06/14/24 16:30 06/14/24 16:45 Pulse Rate 72 82 69 Respiratory Rate 28 H 26 H 19 Blood Pressure Pulse Oximetry 98 97 97 Oxygen Delivery Oxygen Flow Rate 06/14/24 17:00 06/14/24 17:01 06/14/24 17:15 Pulse Rate 76 70 77 Respiratory Rate 24 H 20 25 H Blood Pressure 128/87 Pulse Oximetry 97 97 97 Oxygen Delivery Oxygen Flow Rate 06/14/24 17:30 06/14/24 17:45 06/14/24 18:00 Pulse Rate 78 85 71 Respiratory Rate 25 H 27 H 25 H Blood Pressure 134/88 Pulse Oximetry 98 99 97 Oxygen Delivery Oxygen Flow Rate 06/14/24 18:01 06/14/24 18:15 06/14/24 18:30 Pulse Rate 72 72 75 Respiratory Rate 24 H 26 H 26 H Blood Pressure Pulse Oximetry 97 95 96 Oxygen Delivery Oxygen Flow Rate 06/14/24 18:45 06/14/24 19:00 06/14/24 19:01 Pulse Rate 74 76 76 Respiratory Rate 23 H 27 H 23 H Blood Pressure 100/53 L Pulse Oximetry 99 96 95 Oxygen Delivery Oxygen Flow Rate 06/14/24 19:15 06/14/24 23:20 06/15/24 02:17 Pulse Rate 72 76 80 Respiratory Rate 20 19 17 Blood Pressure 123/88 170/98 H Pulse Oximetry 95 95 96 Oxygen Delivery Oxygen Flow Rate 06/15/24 03:12 06/15/24 03:49 06/15/24 04:54 Pulse Rate 97 74 Respiratory Rate 16 17 Blood Pressure 150/84 H 138/83 Pulse Oximetry 96 97 100 Oxygen Delivery Room Air Oxygen Flow Rate 06/15/24 07:00 06/15/24 09:00 Pulse Rate 77 77 Respiratory Rate 17 17 Blood Pressure 116/66 172/92 H Pulse Oximetry 100 96 Oxygen Delivery Oxygen Flow Rate Intake/Output Intake/Output: Intake & Output 06/12/24 06/13/24 06/14/24 06/15/24 23:59 23:59 23:59 23:59 Output Total 600 Balance -600 Meds/Results Medications: Active Medications Generic Name Dose Route Start Last Admin Trade Name Aidenq PRN Reason Stop Dose Admin Aspirin 81 mg 06/14/24 09:00 06/14/24 11:02 Aspirin 81 Mg Enteric Tablet PO 81 mg QAM TESSIE Administration Atorvastatin Calcium 40 mg 06/14/24 09:00 06/14/24 11:03 Atorvastatin 40 Mg Tablet PO 40 mg DAILY TESSIE Administration Enoxaparin Sodium 40 mg 06/14/24 09:00 06/14/24 10:05 Enoxaparin 40 Mg/0.4 Ml Syringe SUB-Q 40 mg DAILY TESSIE Administration Furosemide 40 mg 06/14/24 09:00 06/14/24 17:46 Furosemide Inj 40 Mg/4 Ml Vial IV PUSH 40 mg BID TESSIE Administration Losartan Potassium 25 mg 06/14/24 09:00 06/14/24 11:02 Losartan Potassium 25 Mg Tablet PO 25 mg DAILY TESSIE Administration Metoprolol Succinate 25 mg 06/14/24 09:00 06/14/24 11:03 Metoprolol Succinate Ext Rel 25 Mg Tabcr PO 25 mg QAM TESSIE Administration Radiology Results: ITS Impressions Chest X-Ray 06/14/24 05:38 Impression: Moderate right pleural effusion with right basilar atelectasis or possibly pneumonia. Probable minimal left basilar atelectasis. Stable cardiomegaly. Labs Labs: Laboratory Results - last 24 hr 06/15/24 06:06 WBC 7.5 RBC 4.35 L Hgb 13.2 L Hct 39.2 L MCV 90.1 MCH 30.3 MCHC 33.7 RDW 13.1 Plt Count 262 MPV 10.6 H Immature Gran % (Auto) 0.3 Neut % (Auto) 62.8 Lymph % (Auto) 20.8 [place] % (Auto) 9.3 H Eos % (Auto) 5.6 H Baso % (Auto) 1.2 Lymph # (Auto) 1.56 [place] # (Auto) 0.7 H Eos # (Auto) 0.4 H Baso # (Auto) 0.1 Abs Immat Gran (auto) 0.02 Absolute Neuts (auto) 4.7 Absolute Nucleated RBC 0.000 Nucleated RBC % 0.0 Sodium 136 L Potassium 4.2 Chloride 102 Carbon Dioxide 29 Anion Gap 5 BUN 28 H Creatinine 1.40 H Estim Creat Clear Calc 47 Estimated GFR 49 L Glucose 99 Calcium 9.6 Magnesium 2.2 Total Bilirubin 1.6 H AST 31 ALT 24 Alkaline Phosphatase 84 Total Protein 8.0 Albumin 4.3
--- NOTE | 2024-06-15 09:47 | ADMGEN ---
This patient, Rigo Caballero, was admitted to Intensive Care Unit-11. Patient/family oriented to hospital policies and general routines including ID bracelet, bed and alarms, visiting hours, pain management, procedures, bathroom and other care routines, personal items, smoking policy, room service/diet, and visiting hours. Information on how to activate the Rapid Response Team has been discussed. Patient/Family are encouraged to report perceived risks to care and to ask questions if they do not understand what they are told or what they should do.
[2024-06-15] MEDS: FUROSEMIDE INJ 40 MG/4 ML VIAL IV PUSH ×2 (10:06→18:24)
[2024-06-15] MEDS: ENOXAPARIN 40 MG/0.4 ML SYRINGE SUB-Q (10:08)
[2024-06-15] MEDS: LOSARTAN POTASSIUM 25 MG TABLET PO (10:08)
[2024-06-15] MEDS: ASPIRIN 81 MG ENTERIC TABLET PO (10:08)
[2024-06-15] MEDS: METOPROLOL SUCCINATE EXT REL 25 MG TABCR PO (10:08)
[2024-06-15] MEDS: ATORVASTATIN 40 MG TABLET PO (10:08)
--- NOTE | 2024-06-15 18:03 | P.CONCA_ITS ---
Assessment and Plan Assessment and plan (1) Hypertension: Code(s): I10 - Essential (primary) hypertension Status: Acute (2) Aortic stenosis: Code(s): I35.0 - Nonrheumatic aortic (valve) stenosis Status: Acute (3) CHF (congestive heart failure): Code(s): I50.9 - Heart failure, unspecified Status: Acute (4) COPD (chronic obstructive pulmonary disease): Code(s): J44.9 - Chronic obstructive pulmonary disease, unspecified Status: Acute Plan 1. Type 2 [place] 2. Moderate aortic Stenosis Vmax 322, MG 31, DON 1.15 (continuity), DON 1.2 (planimetry, SVi 35, di 0.28 3. Systolic heart Failure NYHA II, Stage C EF 45-50% Etiology: not known yet 4. COPD 5. PNA 6. R Pleural Effusion 7. SHERRI 8. Chromic smoker - it is my clinical impression that most likely has underlying coronary artery disease and with his presentation with COPD exacerbation, mod he had manifested as a rise in troponin. Moreover he does have moderate aortic stenosis -this is his 2nd admission in the past 2 months I think we will perform an ischemic evaluation this current admission after he is euvolemic we will also cross his aortic valve to evaluate the gradients across the valve as well as calculated valve area on cardiac catheterization -if no significant obstructive epicardial coronary artery disease found on cardiac catheterization I would recommend we proceed with the AVR evaluation for him with the consideration that aortic stenosis being the most likely etiology for his heart failure -continue aspirin 81 mg once daily, atorvastatin 40 mg once daily, metoprolol succinate 25 mg once daily and losartan 25 mg once daily -will start SGOT 2 inhibitor as later thank you for allowing me to partake in the care of this pleasant gentleman. please call me with any questions or concerns History of Present Illness History of Present Illness Consult date/time: 06/15/24 18:03 Reason For Visit: CHF Narrative: Mr Rigo Caballero is a 78-year-old pleasant gentleman known to have mod , right pleural effusion status post thoracentesis, congestive heart failure, COPD with exacerbation. Was admitted in April with COPD exacerbation pleural effusion pneumonia and heart failure. His echo at that time showed an EF 45-50% with moderate aortic stenosis. Was subsequently discharged home after improvement with the planned follow-up Cardiology as an outpatient. He was compliant with his medications but came in for cardiology follow-up with worsening shortness of breath and pleuritic chest pain Was found to have elevated BNP and flat troponin profile EKG shows normal sinus rhythm, poor R-wave progression in precordial leads - echo shows an EF of 45-50%, moderate aortic stenosis: MG 31 mmHg, and aortic valve area of 1.15 cm2. SVI 35, DON by planimetry 1.2.; DI 0.28 Review of Systems 2 Review of Systems: - CONSTITUTIONAL: Denies weight loss, fe juan manuel and chills. - HEENT: Denies changes in vision and he aring - RESPIRATORY: Reports SOB and denies c ough. - CV: Denies palpitations and reports CP . - GI: Denies abdominal pain, nausea, vom iting and diarrhea. - : Denies dysuria and urinary frequen cy. - MSK: Denies myalgia and joint pain. - SKIN: Denies rash and pruritus. - NEUROLOGICAL: Denies headache and sync ope. - PSYCHIATRIC: Denies recent changes in mood. Denies anxiety and depression. [facility] Past Medical History Medical History (Updated 06/15/24 @ 09:59 by Flako Moreno MD) Aortic stenosis CHF (congestive heart failure) Family History Family History (Updated 04/30/24 @ 22:56 by Rain Casillas RN) Father Acute myocardial infarction Hypertension Sibling Acute myocardial infarction Social History Social History Smoking status: Former smoker Tobacco type: cigarettes Smoking end date: 04/26/24 Alcohol intake: current Drinks per week: 1 Substance use: never Substance use type: does not use Do You Feel Safe in your Home?: Yes Lack of Transportation: No Lack of Food: Never True Current Housing: I Have Housing Concerned About Future Housing: No Difficulty Paying Gas/Electric Bills: No Difficulty Paying for Meds: No Currently Unemployed: No Education: High School Diploma/GED Difficulty w/ Childcare or Family Care: No Spiritual care concerns: No Meds Home Medications and Allergies Home Medications ?Medication ?Instructions ?Recorded ?Confirmed ?Type aspirin 81 mg tablet,delayed 81 mg PO QAM #90 tabs 05/04/24 06/14/24 Rx release atorvastatin 40 mg tablet 40 mg PO DAILY #90 tabs 05/04/24 06/14/24 Rx empagliflozin 10 mg tablet 10 mg PO DAILY #90 tabs 05/04/24 06/14/24 Rx (Jardiance) metoprolol succinate 25 mg 25 mg PO QAM #90 tabs 05/04/24 06/14/24 Rx tablet,extended release 24 hr (Toprol XL) Allergies Allergy/AdvReac Type Severity Reaction Status Date / Time No Known Allergies Allergy Verified 06/14/24 08:51 Vital Signs Vital Signs - 24 hr 06/14/24 18:15 06/14/24 18:30 06/14/24 18:45 Temperature Pulse Rate 72 75 74 Respiratory Rate 26 H 26 H 23 H Blood Pressure Pulse Oximetry 95 96 99 Oxygen Delivery 06/14/24 19:00 06/14/24 19:01 06/14/24 19:15 Temperature Pulse Rate 76 76 72 Respiratory Rate 27 H 23 H 20 Blood Pressure 100/53 L Pulse Oximetry 96 95 95 Oxygen Delivery 06/14/24 23:20 06/15/24 02:17 06/15/24 03:12 Temperature Pulse Rate 76 80 Respiratory Rate 19 17 Blood Pressure 123/88 170/98 H Pulse Oximetry 95 96 96 Oxygen Delivery Room Air 06/15/24 03:49 06/15/24 04:54 06/15/24 07:00 Temperature Pulse Rate 97 74 77 Respiratory Rate 16 17 17 Blood Pressure 150/84 H 138/83 116/66 Pulse Oximetry 97 100 100 Oxygen Delivery 06/15/24 09:00 06/15/24 09:45 06/15/24 10:00 Temperature Pulse Rate 77 73 Respiratory Rate 17 18 Blood Pressure 172/92 H 142/77 H Pulse Oximetry 96 98 Oxygen Delivery Room Air 06/15/24 10:00 06/15/24 10:08 06/15/24 12:00 Temperature 36.4 C L Pulse Rate 74 74 65 Respiratory Rate 18 Blood Pressure 125/90 Pulse Oximetry 97 Oxygen Delivery 06/15/24 12:00 06/15/24 12:00 06/15/24 12:00 Temperature 36.4 C L Pulse Rate 72 65 Respiratory Rate 18 Blood Pressure 125/90 Pulse Oximetry 97 Oxygen Delivery Room Air 06/15/24 14:00 06/15/24 14:35 06/15/24 16:00 Temperature 36.4 C L Pulse Rate 78 66 Respiratory Rate 20 Blood Pressure 111/52 L Pulse Oximetry 97 94 Oxygen Delivery Room Air Exam 2 Narrative: AF 98.2 172/92 77 17 96% ra Gen - NARD Neck - JVP about 7cm. Chest - few basilar rales. nml RR CV - RRR S1/S2 with 2/6 systolic murmur t/o precordium Abd - Soft, NT/ND, Positive BS Ext - trace pedal edema Neuro - Alert and appropriate Psych - Nml mood and affect Skin - Warm and dry Results Labs and Meds 06/15/24 06:06 06/15/24 06:06 Lab results: Cardiac Enzymes 06/15/24 Range/Units 06:06 AST 31 (17-59) U/L CBC 06/15/24 Range/Units 06:06 WBC 7.5 (4.5-10.0) K/mm3 RBC 4.35 L (4.6-6.20) M/mm3 Hgb 13.2 L (14.0-18.0) g/dL Hct 39.2 L (42.0-52.0) % Plt Count 262 (150-375) k/mm3 Lymph # (Auto) 1.56 (0.9-3.2) K/mm3 [place] # (Auto) 0.7 H (0.1-0.6) K/mm3 Eos # (Auto) 0.4 H (0-0.3) K/mm3 Baso # (Auto) 0.1 (0.0-0.1) K/mm3 Comprehensive Metabolic Panel 06/15/24 Range/Units 06:06 Sodium 136 L (137-145) mmol/L Potassium 4.2 (3.4-5.0) mmol/L Chloride 102 (98-107) mmol/L Carbon Dioxide 29 (22-30) mmol/L BUN 28 H (9-20) mg/dL Creatinine 1.40 H (0.7-1.3) mg/dL Glucose 99 (65-110) mg/dL Calcium 9.6 (8.4-10.2) mg/dL AST 31 (17-59) U/L ALT 24 (6-50) U/L Alkaline Phosphatase 84 (38-126) U/L Total Protein 8.0 (6.3-8.2) g/dL Albumin 4.3 (3.5-5.1) g/dL Intake and Output 06/15/24 06/15/24 06/15/24 07:59 15:59 23:59 Intake Total 240 Balance 240 Intake: Oral 240
[2024-06-16] VITALS (16 sets, daily range): BP systolic 113–151; BP diastolic 61–96; PULSE 67–84; RESP 17–24; TEMP 36.4–37; O2SAT 93–99
[2024-06-16 07:02] LABS: Basophils Absolute Auto 0.1 K/mm3 (0.0-0.1); Basophils Percent Auto 0.9 % (0.2-1.2); Eosinophils Absolute Auto 0.4 K/mm3 (0-0.3); Eosinophils Percent Auto 4.5 % (0-4.4); Hematocrit 38.8 % (42.0-52.0); Hemoglobin 13.1 g/dL (14.0-18.0); Immature Granulocyte Absolute 0.02 K/mm3 (0.00-0.031); Immature Granulocyte Percent A 0.2 % (0-0.5); Lymphocytes Absolute Auto 1.07 K/mm3 (0.9-3.2); Lymphocytes Percent Auto 13.3 % (18.3-44.2); Mean Corpuscular HGB Conc 33.8 g/dl (32-36); Mean Corpuscular Hemoglobin 30.1 pg (26-34); Mean Corpuscular Volume 89.2 fl (80-100); Mean Platelet Volume 10.1 fl (7.4-10.4); Monocytes Absolute Auto 0.9 K/mm3 (0.1-0.6); Monocytes Percent Auto 11.5 % (2.6-8.5); Neutrophils Absolute Auto 5.6 K/mm3 (1.3-6.7); Neutrophils Percent Auto 69.6 % (45.5-73.1); Platelet Count Result 239 k/mm3 (150-375); Red Blood Count 4.35 M/mm3 (4.6-6.20); Red Cell Distribution Width 13.2 % (11.5-14.5)
[2024-06-16 07:14] LABS: Anion Gap 6 mmol/L (4-12); Blood Urea Nitrogen 27 mg/dL (9-20); Calcium 9.4 mg/dL (8.4-10.2); Carbon Dioxide 27 mmol/L (22-30); Chloride 104 mmol/L (98-107); Estimated CRCL calculation 50 ml/min; Estimated Glomerular Filt Rate 54; Glucose 105 mg/dL (65-110); Magnesium 2.2 mg/dL (1.6-2.3); Potassium 3.6 mmol/L (3.4-5.0); Sodium 137 mmol/L (137-145)
[2024-06-16] MEDS: ATORVASTATIN 40 MG TABLET PO (08:05)
[2024-06-16] MEDS: EMPAGLIFLOZIN 10 MG TABLET PO (08:05)
[2024-06-16] MEDS: ASPIRIN 81 MG ENTERIC TABLET PO (08:05)
[2024-06-16] MEDS: FUROSEMIDE INJ 40 MG/4 ML VIAL IV PUSH ×2 (08:05→16:40)
[2024-06-16] MEDS: METOPROLOL SUCCINATE EXT REL 25 MG TABCR PO (08:05)
[2024-06-16] MEDS: LOSARTAN POTASSIUM 25 MG TABLET PO (08:05)
[2024-06-16] MEDS: ENOXAPARIN 40 MG/0.4 ML SYRINGE SUB-Q (08:06)
--- NOTE | 2024-06-16 10:31 | PM.IMPN ---
Progress Note: A&P Assessment and Plan (1) CHF (congestive heart failure): Code(s): I50.9 - Heart failure, unspecified Status: Acute Assessment and Plan: Patient presents with SOB. CXR showing moderate right pleural effusion with right basilar atelectasis and cardiomegaly. BNP 44256 which is twice as high compared to last admission. Patient was hospitalized here in April 2024 for CHF. Echo in April 2024 showing severely increased LV wall thickness with reduced function with EF of 45-50% and moderate . He was discharged home on Lipitor, Toprol XL, aspirin and empagliflozin. No diuretics. He has been compliant with his home medication regiment. Etiology of his acute CHF is unclear. Consider dietary indiscretion given the recent holidays. Consider underlying ischemia. Patient started on IV diuretics with clinical improvement. Continue metoprolol XL and Cozaar Continue IV Lasix for today but transition to oral tomorrow. Monitor daily weights, urine output and clinical exam. Cardiology following. CHF teaching (2) Elevated troponin: Code(s): R79.89 - Other specified abnormal findings of blood chemistry Status: Acute Assessment and Plan: Troponin elevated at 0.05 and flat on repeat. EKG shows sinus rhythm with LAE and LVH but no significant ST-T wave changes. Repeat EKG shows similar findings. Suspect type 2 [place] related to CHF exacerbation. Continue aspirin, Lipitor and metoprolol. [facility] being considered for Tuesday. Monitor on telemetry. Cardiology following. (3) COPD (chronic obstructive pulmonary disease): Code(s): J44.9 - Chronic obstructive pulmonary disease, unspecified Status: Acute Assessment and Plan: Patient with underlying COPD related to his tobacco use. No wheezing appreciated. He is not on inhalers at home. Follow clinically at this time. (4) Pleural effusion: Code(s): J90 - Pleural effusion, not elsewhere classified Status: Acute Assessment and Plan: Pleural effusions noted on imaging. [place] related to CHF exacerbation. Consider right thoracentesis. (5) Hypertension: Code(s): I10 - Essential (primary) hypertension Status: Acute Assessment and Plan: Patient's blood pressure was reviewed on 06/16 Blood pressure better controlled now. Will continue current medications. (6) Aortic stenosis: Code(s): I35.0 - Nonrheumatic aortic (valve) stenosis Status: Acute Assessment and Plan: Patient with moderate aortic stenosis by echocardiogram in April 2024. Plan to evaluate with [facility]. This will need to be followed outpatient. (7) Tobacco dependence: Code(s): F17.200 - Nicotine dependence, unspecified, uncomplicated Status: Acute Assessment and Plan: Patient was congratulated on smoking cessation. Plan DVT prophylaxis Lovenox Code status full code Subjective Date/time seen: 06/16/24 10:31 Interval history: 78yo male with CH and COPD here for SOB. No n/v. No CP or SOB. Feels better overall. Eating well. Exam Narrative: AF 98.3 120/61 78 20 94% ra Gen - NARD Neck - JVP not elevated Chest - very minor left basilar rhonchi and decreased BS right base CV - RRR S1/S2; tele showing PVCs. Abd - Soft, NT/ND, Positive BS Ext - no pedal edema Neuro - Alert and appropriate Psych - Nml mood and affect Skin - Warm and dry Objective Data Vital Signs Vital Signs: Vital Signs - 24 hr 06/15/24 12:00 06/15/24 12:00 06/15/24 12:00 Temperature 97.5 F L Pulse Rate 65 72 Respiratory Rate 18 Blood Pressure 125/90 Pulse Oximetry 97 Oxygen Delivery Room Air 06/15/24 12:00 06/15/24 14:00 06/15/24 14:35 Temperature 97.5 F L Pulse Rate 65 78 Respiratory Rate 18 Blood Pressure 125/90 Pulse Oximetry 97 97 Oxygen Delivery Room Air 06/15/24 16:00 06/15/24 16:00 06/15/24 16:00 Temperature 97.5 F L Pulse Rate 66 68 Respiratory Rate 20 Blood Pressure 111/52 L Pulse Oximetry 94 Oxygen Delivery Room Air 06/15/24 18:00 06/15/24 20:00 06/15/24 20:00 Temperature 98.0 F Pulse Rate 66 71 Respiratory Rate 19 Blood Pressure 137/75 Pulse Oximetry 96 Oxygen Delivery Room Air 06/15/24 20:00 06/15/24 22:00 06/16/24 00:00 Temperature Pulse Rate 77 68 Respiratory Rate Blood Pressure Pulse Oximetry Oxygen Delivery Room Air 06/16/24 00:00 06/16/24 00:01 06/16/24 02:00 Temperature 98.6 F Pulse Rate 75 84 81 Respiratory Rate 19 Blood Pressure 151/96 H Pulse Oximetry 93 Oxygen Delivery 06/16/24 04:00 06/16/24 04:00 06/16/24 04:00 Temperature 98.5 F Pulse Rate 69 71 Respiratory Rate 17 Blood Pressure 143/75 H Pulse Oximetry 94 Oxygen Delivery Room Air 06/16/24 06:00 06/16/24 08:00 06/16/24 08:00 Temperature 98.3 F Pulse Rate 69 69 77 Respiratory Rate 20 20 Blood Pressure 120/61 Pulse Oximetry 94 94 Oxygen Delivery Room Air 06/16/24 08:00 06/16/24 08:05 06/16/24 10:00 Temperature Pulse Rate 79 77 78 Respiratory Rate Blood Pressure Pulse Oximetry Oxygen Delivery Intake/Output Intake/Output: Intake & Output 06/13/24 06/14/24 06/15/24 06/16/24 23:59 23:59 23:59 23:59 Intake Total 480 340 Output Total 600 1700 725 Balance -600 -1220 -385 Meds/Results Medications: Active Medications Generic Name Dose Route Start Last Admin Trade Name Freq PRN Reason Stop Dose Admin Acetaminophen 650 mg 06/16/24 07:03 Acetaminophen 325 Mg Tablet PO Q6H PRN Mild Pain (1-3) or Fever Aspirin 81 mg 06/14/24 09:00 06/16/24 08:05 Aspirin 81 Mg Enteric Tablet PO 81 mg QAM TESSIE Administration Atorvastatin Calcium 40 mg 06/14/24 09:00 06/16/24 08:05 Atorvastatin 40 Mg Tablet PO 40 mg DAILY TESSIE Administration Empagliflozin 10 mg 06/16/24 09:00 06/16/24 08:05 Empagliflozin 10 Mg Tablet PO 10 mg DAILY TESSIE Administration Enoxaparin Sodium 40 mg 06/14/24 09:00 06/16/24 08:06 Enoxaparin 40 Mg/0.4 Ml Syringe SUB-Q 40 mg DAILY TESSIE Administration Furosemide 40 mg 06/14/24 09:00 06/16/24 08:05 Furosemide Inj 40 Mg/4 Ml Vial IV PUSH 40 mg BID TESSIE Administration Losartan Potassium 25 mg 06/14/24 09:00 06/16/24 08:05 Losartan Potassium 25 Mg Tablet PO 25 mg DAILY TESSIE Administration Metoprolol Succinate 25 mg 06/14/24 09:00 06/16/24 08:05 Metoprolol Succinate Ext Rel 25 Mg Tabcr PO 25 mg QAM TESSIE Administration Radiology Results: ITS Impressions Chest X-Ray 06/14/24 05:38 Impression: Moderate right pleural effusion with right basilar atelectasis or possibly pneumonia. Probable minimal left basilar atelectasis. Stable cardiomegaly. Labs Labs: Laboratory Results - last 24 hr 06/16/24 06:57 WBC 8.0 RBC 4.35 L Hgb 13.1 L Hct 38.8 L MCV 89.2 MCH 30.1 MCHC 33.8 RDW 13.2 Plt Count 239 MPV 10.1 Immature Gran % (Auto) 0.2 Neut % (Auto) 69.6 Lymph % (Auto) 13.3 L [place] % (Auto) 11.5 H Eos % (Auto) 4.5 H Baso % (Auto) 0.9 Lymph # (Auto) 1.07 [place] # (Auto) 0.9 H Eos # (Auto) 0.4 H Baso # (Auto) 0.1 Abs Immat Gran (auto) 0.02 Absolute Neuts (auto) 5.6 Absolute Nucleated RBC 0.000 Nucleated RBC % 0.0 Sodium 137 Potassium 3.6 Chloride 104 Carbon Dioxide 27 Anion Gap 6 BUN 27 H Creatinine 1.30 Estim Creat Clear Calc 50 Estimated GFR 54 L Glucose 105 Calcium 9.4 Phosphorus 5.0 H Magnesium 2.2 Albumin 4.0
--- NOTE | 2024-06-16 11:08 | PC.NURSE ---
This patient, Rigo Caballero, was transferred to [[id number] ] on 06/16/24 at 1100. Personal belongings sent with patient. Report given to [VANESA Berry @ [phone]]. Appropriate documentation sent with patient. Tessie, significant other, notified of pt being transferred
--- NOTE | 2024-06-16 17:50 | PM.PNCARD ---
Progress Note: A&P Assessment and Plan (1) Hypertension: Code(s): I10 - Essential (primary) hypertension Status: Acute (2) Aortic stenosis: Code(s): I35.0 - Nonrheumatic aortic (valve) stenosis Status: Acute (3) CHF (congestive heart failure): Code(s): I50.9 - Heart failure, unspecified Status: Acute (4) COPD (chronic obstructive pulmonary disease): Code(s): J44.9 - Chronic obstructive pulmonary disease, unspecified Status: Acute Plan 1. Type 2 [place] 2. Moderate aortic Stenosis Vmax 322, MG 31, DON 1.15 (continuity), DON 1.2 (planimetry, SVi 35, di 0.28 3. Systolic heart Failure NYHA II, Stage C EF 45-50% Etiology: not known yet 4. COPD 5. PNA 6. R Pleural Effusion 7. SHERRI 8. Chromic smoker - it is my clinical impression that most likely has underlying coronary artery disease and with his presentation with COPD exacerbation, mod he had manifested as a rise in troponin. Moreover he does have moderate aortic stenosis -continue aspirin 81 mg once daily, atorvastatin 40 mg once daily, metoprolol succinate 25 mg once daily and losartan 25 mg once daily -will start SGOT 2 inhibitor as later Left heart catheterization Tuesday, will try to cross the aortic valve as well and measure gradients Subjective Date/time seen: 06/16/24 17:50 Interval history: FEELS MUCH BETTER OVERALL, EATING WELL Exam Narrative: AF 98.2 172/92 77 17 96% ra Gen - NARD Neck - JVP about 7cm. Chest - few basilar rales. nml RR CV - RRR S1/S2 with 2/6 systolic murmur t/o precordium Abd - Soft, NT/ND, Positive BS Ext - trace pedal edema Neuro - Alert and appropriate Psych - Nml mood and affect Skin - Warm and dry Objective Data Vital Signs Vital Signs: Vital Signs - 24 hr 06/15/24 18:00 06/15/24 20:00 06/15/24 20:00 Temperature 36.7 C Pulse Rate 66 71 Respiratory Rate 19 Blood Pressure 137/75 Pulse Oximetry 96 Oxygen Delivery Room Air 06/15/24 20:00 06/15/24 22:00 06/16/24 00:00 Temperature Pulse Rate 77 68 Respiratory Rate Blood Pressure Pulse Oximetry Oxygen Delivery Room Air 06/16/24 00:00 06/16/24 00:01 06/16/24 02:00 Temperature 37.0 C Pulse Rate 75 84 81 Respiratory Rate 19 Blood Pressure 151/96 H Pulse Oximetry 93 Oxygen Delivery 06/16/24 04:00 06/16/24 04:00 06/16/24 04:00 Temperature 36.9 C Pulse Rate 69 71 Respiratory Rate 17 Blood Pressure 143/75 H Pulse Oximetry 94 Oxygen Delivery Room Air 06/16/24 06:00 06/16/24 08:00 06/16/24 08:00 Temperature 36.8 C Pulse Rate 69 69 77 Respiratory Rate 20 20 Blood Pressure 120/61 Pulse Oximetry 94 94 Oxygen Delivery Room Air 06/16/24 08:00 06/16/24 08:05 06/16/24 10:00 Temperature Pulse Rate 79 77 78 Respiratory Rate Blood Pressure Pulse Oximetry Oxygen Delivery 06/16/24 12:00 06/16/24 12:00 06/16/24 12:00 Temperature 36.6 C Pulse Rate 77 73 Respiratory Rate 24 H Blood Pressure 124/63 Pulse Oximetry 97 Oxygen Delivery Room Air 06/16/24 14:00 06/16/24 16:00 Temperature Pulse Rate 68 Respiratory Rate Blood Pressure Pulse Oximetry Oxygen Delivery Room Air Intake/Output Intake/Output: Intake & Output 06/13/24 06/14/24 06/15/24 06/16/24 23:59 23:59 23:59 23:59 Intake Total 480 340 Output Total 600 0076 1226 [facility] -600 -1220 -885 Meds/Results Medications: Active Medications Generic Name Dose Route Start Last Admin Trade Name Freq PRN Reason Stop Dose Admin Acetaminophen 650 mg 06/16/24 07:03 Acetaminophen 325 Mg Tablet PO Q6H PRN Mild Pain (1-3) or Fever Aspirin 81 mg 06/14/24 09:00 06/16/24 08:05 Aspirin 81 Mg Enteric Tablet PO 81 mg QAM TESSIE Administration Atorvastatin Calcium 40 mg 06/14/24 09:00 06/16/24 08:05 Atorvastatin 40 Mg Tablet PO 40 mg DAILY TESSIE Administration Empagliflozin 10 mg 06/16/24 09:00 06/16/24 08:05 Empagliflozin 10 Mg Tablet PO 10 mg DAILY TESSIE Administration Enoxaparin Sodium 40 mg 06/14/24 09:00 06/16/24 08:06 Enoxaparin 40 Mg/0.4 Ml Syringe SUB-Q 40 mg DAILY TESSIE Administration Furosemide 40 mg 06/14/24 09:00 06/16/24 16:40 Furosemide Inj 40 Mg/4 Ml Vial IV PUSH 40 mg BID TESSIE Administration Losartan Potassium 25 mg 06/14/24 09:00 06/16/24 08:05 Losartan Potassium 25 Mg Tablet PO 25 mg DAILY TESSIE Administration Metoprolol Succinate 25 mg 06/14/24 09:00 06/16/24 08:05 Metoprolol Succinate Ext Rel 25 Mg Tabcr PO 25 mg QAM TESSIE Administration Radiology Results: ITS Impressions Chest X-Ray 06/14/24 05:38 Impression: Moderate right pleural effusion with right basilar atelectasis or possibly pneumonia. Probable minimal left basilar atelectasis. Stable cardiomegaly. Labs Labs: Laboratory Results - last 24 hr 06/16/24 06:57 WBC 8.0 RBC 4.35 L Hgb 13.1 L Hct 38.8 L MCV 89.2 MCH 30.1 MCHC 33.8 RDW 13.2 Plt Count 239 MPV 10.1 Immature Gran % (Auto) 0.2 Neut % (Auto) 69.6 Lymph % (Auto) 13.3 L [place] % (Auto) 11.5 H Eos % (Auto) 4.5 H Baso % (Auto) 0.9 Lymph # (Auto) 1.07 [place] # (Auto) 0.9 H Eos # (Auto) 0.4 H Baso # (Auto) 0.1 Abs Immat Gran (auto) 0.02 Absolute Neuts (auto) 5.6 Absolute Nucleated RBC 0.000 Nucleated RBC % 0.0 Sodium 137 Potassium 3.6 Chloride 104 Carbon Dioxide 27 Anion Gap 6 BUN 27 H Creatinine 1.30 Estim Creat Clear Calc 50 Estimated GFR 54 L Glucose 105 Calcium 9.4 Phosphorus 5.0 H Magnesium 2.2 Albumin 4.0
[2024-06-17] VITALS (15 sets, daily range): BP systolic 129–150; BP diastolic 62–88; PULSE 66–82; RESP 16–22; TEMP 36.4–36.8; O2SAT 92–97
[2024-06-17 05:32] LABS: Anion Gap 7 mmol/L (4-12); Blood Urea Nitrogen 25 mg/dL (9-20); Calcium 9.5 mg/dL (8.4-10.2); Carbon Dioxide 26 mmol/L (22-30); Chloride 105 mmol/L (98-107); Estimated CRCL calculation 44 ml/min; Estimated Glomerular Filt Rate 46; Glucose 109 mg/dL (65-110); Potassium 3.3 mmol/L (3.4-5.0); Sodium 138 mmol/L (137-145)
[2024-06-17] MEDS: LOSARTAN POTASSIUM 25 MG TABLET PO (08:22)
[2024-06-17] MEDS: EMPAGLIFLOZIN 10 MG TABLET PO (08:22)
[2024-06-17] MEDS: POTASSIUM CHLORIDE 20 MEQ ER TABLET 40 MEQ PO (08:22)
[2024-06-17] MEDS: FUROSEMIDE 40 MG TABLET PO (08:22)
[2024-06-17] MEDS: ENOXAPARIN 40 MG/0.4 ML SYRINGE SUB-Q (08:22)
[2024-06-17] MEDS: METOPROLOL SUCCINATE EXT REL 25 MG TABCR PO (08:22)
[2024-06-17] MEDS: ATORVASTATIN 40 MG TABLET PO (08:22)
[2024-06-17] MEDS: ASPIRIN 81 MG ENTERIC TABLET PO (08:22)
--- NOTE | 2024-06-17 15:28 | PM.IMPN ---
Progress Note: A&P Assessment and Plan (1) CHF (congestive heart failure): Code(s): I50.9 - Heart failure, unspecified Status: Acute Assessment and Plan: Patient presents with SOB. CXR showing moderate right pleural effusion with right basilar atelectasis and cardiomegaly. BNP 76257 which is twice as high compared to last admission. Patient was hospitalized here in April 2024 for CHF. Echo in April 2024 showing severely increased LV wall thickness with reduced function with EF of 45-50% and moderate . He was discharged home on Lipitor, Toprol XL, aspirin and empagliflozin. No diuretics. He has been compliant with his home medication regiment. Etiology of his acute CHF is unclear. Consider dietary indiscretion given the recent holidays. Consider underlying ischemia. Patient started on IV diuretics with clinical improvement. Continue metoprolol XL and Cozaar Transition to oral Lasix today. Monitor daily weights, urine output and clinical exam. Cardiology following. CHF teaching (2) Elevated troponin: Code(s): R79.89 - Other specified abnormal findings of blood chemistry Status: Acute Assessment and Plan: Troponin elevated at 0.05 and flat on repeat. EKG shows sinus rhythm with LAE and LVH but no significant ST-T wave changes. Repeat EKG shows similar findings. Suspect type 2 [place] related to CHF exacerbation. Continue aspirin, Lipitor and metoprolol. [facility] being considered for Tuesday. Monitor on telemetry. Cardiology following. (3) COPD (chronic obstructive pulmonary disease): Code(s): J44.9 - Chronic obstructive pulmonary disease, unspecified Status: Acute Assessment and Plan: Patient with underlying COPD related to his tobacco use. No wheezing appreciated. He is not on inhalers at home. Follow clinically at this time. (4) Pleural effusion: Code(s): J90 - Pleural effusion, not elsewhere classified Status: Acute Assessment and Plan: Pleural effusions noted on imaging. [place] related to CHF exacerbation. Consider right thoracentesis. (5) Hypertension: Code(s): I10 - Essential (primary) hypertension Status: Acute Assessment and Plan: Patient's blood pressure was reviewed on 06/17 Blood pressure better controlled now. Will continue current medications. (6) Aortic stenosis: Code(s): I35.0 - Nonrheumatic aortic (valve) stenosis Status: Acute Assessment and Plan: Patient with moderate aortic stenosis by echocardiogram in April 2024. Plan to evaluate with [facility]. This will need to be followed outpatient. (7) Tobacco dependence: Code(s): F17.200 - Nicotine dependence, unspecified, uncomplicated Status: Acute Assessment and Plan: Patient was congratulated on smoking cessation. Plan DVT prophylaxis Lovenox Code status full code Subjective Date/time seen: 06/17/24 15:28 Interval history: 78yo male with CH and COPD here for SOB. No complaints. No chest pain or shortness of breath. Exam Narrative: AF 97.8 138/88 71 20 97% ra Gen - NARD Chest - distant, clear BS. CV - RRR S1/S2 Abd - Soft, NT/ND, Positive BS Ext - no pedal edema Psych - Nml mood and affect Skin - Warm and dry Objective Data Vital Signs Vital Signs: Vital Signs - 24 hr 06/16/24 16:00 06/16/24 16:00 06/16/24 16:00 Temperature 97.8 F Pulse Rate 68 68 Respiratory Rate 20 Blood Pressure 113/63 Pulse Oximetry 99 Oxygen Delivery Room Air 06/16/24 18:00 06/16/24 20:00 06/16/24 20:00 Temperature Pulse Rate 74 67 Respiratory Rate Blood Pressure Pulse Oximetry Oxygen Delivery Room Air 06/16/24 20:05 06/16/24 22:00 06/16/24 23:22 Temperature 97.6 F 97.7 F Pulse Rate 72 71 76 Respiratory Rate 24 H 22 H Blood Pressure 135/72 134/95 H Pulse Oximetry 95 96 Oxygen Delivery 06/17/24 00:00 06/17/24 00:00 06/17/24 02:00 Temperature Pulse Rate 75 82 Respiratory Rate Blood Pressure Pulse Oximetry Oxygen Delivery Room Air 06/17/24 04:00 06/17/24 04:00 06/17/24 04:39 Temperature 97.5 F L Pulse Rate 66 71 Respiratory Rate 18 Blood Pressure 146/80 H Pulse Oximetry 97 Oxygen Delivery Room Air 06/17/24 06:00 06/17/24 08:00 06/17/24 08:00 Temperature 98.3 F Pulse Rate 69 74 Respiratory Rate 16 Blood Pressure 150/70 H Pulse Oximetry 95 Oxygen Delivery Room Air 06/17/24 08:00 06/17/24 08:22 06/17/24 10:00 Temperature Pulse Rate 73 76 73 Respiratory Rate Blood Pressure Pulse Oximetry Oxygen Delivery 06/17/24 12:00 06/17/24 12:00 06/17/24 12:00 Temperature 97.8 F Pulse Rate 71 75 Respiratory Rate 20 Blood Pressure 138/88 Pulse Oximetry 97 Oxygen Delivery Room Air Intake/Output Intake/Output: Intake & Output 06/14/24 06/15/24 06/16/24 06/17/24 23:59 23:59 23:59 23:59 Intake Total 480 980 830 Output Total 600 1700 1525 700 Balance -600 -1220 -545 130 Meds/Results Medications: Active Medications Generic Name Dose Route Start Last Admin Trade Name Freq PRN Reason Stop Dose Admin Acetaminophen 650 mg 06/16/24 07:03 Acetaminophen 325 Mg Tablet PO Q6H PRN Mild Pain (1-3) or Fever Aspirin 81 mg 06/14/24 09:00 06/17/24 08:22 Aspirin 81 Mg Enteric Tablet PO 81 mg QAM TESSIE Administration Atorvastatin Calcium 40 mg 06/14/24 09:00 06/17/24 08:22 Atorvastatin 40 Mg Tablet PO 40 mg DAILY TESSIE Administration Empagliflozin 10 mg 06/16/24 09:00 06/17/24 08:22 Empagliflozin 10 Mg Tablet PO 10 mg DAILY TESSIE Administration Enoxaparin Sodium 40 mg 06/14/24 09:00 06/17/24 08:22 Enoxaparin 40 Mg/0.4 Ml Syringe SUB-Q 40 mg DAILY TESSIE Administration Furosemide 40 mg 06/17/24 09:00 06/17/24 08:22 Furosemide 40 Mg Tablet PO 40 mg DAILY TESSIE Administration Losartan Potassium 25 mg 06/14/24 09:00 06/17/24 08:22 Losartan Potassium 25 Mg Tablet PO 25 mg DAILY TESSIE Administration Metoprolol Succinate 25 mg 06/14/24 09:00 06/17/24 08:22 Metoprolol Succinate Ext Rel 25 Mg Tabcr PO 25 mg QAM TESSIE Administration Radiology Results: ITS Impressions Chest X-Ray 06/14/24 05:38 Impression: Moderate right pleural effusion with right basilar atelectasis or possibly pneumonia. Probable minimal left basilar atelectasis. Stable cardiomegaly. Labs Labs: Laboratory Results - last 24 hr 06/17/24 04:44 Sodium 138 Potassium 3.3 L Chloride 105 Carbon Dioxide 26 Anion Gap 7 BUN 25 H Creatinine 1.50 H Estim Creat Clear Calc 44 Estimated GFR 46 L Glucose 109 Calcium 9.5
[2024-06-18] VITALS (29 sets, daily range): BP systolic 114–181; BP diastolic 61–105; PULSE 55–83; RESP 14–22; TEMP 36.4–36.8; O2SAT 95–100
[2024-06-18 05:05] LABS: Basophils Absolute Auto 0.1 K/mm3 (0.0-0.1); Basophils Percent Auto 1.2 % (0.2-1.2); Eosinophils Absolute Auto 0.5 K/mm3 (0-0.3); Eosinophils Percent Auto 7.2 % (0-4.4); Hemoglobin 12.8 g/dL (14.0-18.0); Immature Granulocyte Absolute 0.01 K/mm3 (0.00-0.031); Immature Granulocyte Percent A 0.1 % (0-0.5); Mean Corpuscular HGB Conc 33.7 g/dl (32-36); Mean Corpuscular Volume 89.2 fl (80-100); Mean Platelet Volume 10.8 fl (7.4-10.4); Neutrophils Absolute Auto 3.8 K/mm3 (1.3-6.7); Neutrophils Percent Auto 55.5 % (45.5-73.1); Platelet Count Result 248 k/mm3 (150-375); Red Blood Count 4.26 M/mm3 (4.6-6.20); Red Cell Distribution Width 13.2 % (11.5-14.5); White Blood Count 6.8 K/mm3 (4.5-10.0)
[2024-06-18 05:16] LABS: INR 1.1; Partial Thromboplastin Time 33.9 Seconds (22.3-36.8); Prothrombin Time 14.6 Seconds (11.1-14.7)
[2024-06-18 05:23] LABS: Albumin Level 3.9 g/dL (3.5-5.1); Anion Gap 4 mmol/L (4-12); Blood Urea Nitrogen 23 mg/dL (9-20); Calcium 9.5 mg/dL (8.4-10.2); Carbon Dioxide 28 mmol/L (22-30); Chloride 106 mmol/L (98-107); Estimated CRCL calculation 44 ml/min; Estimated Glomerular Filt Rate 46; Glucose 99 mg/dL (65-110); Phosphorus 4.7 mg/dL (2.5-4.5); Potassium 3.8 mmol/L (3.4-5.0); Sodium 138 mmol/L (137-145)
[2024-06-18 07:44] LABS: Magnesium 2.4 mg/dL (1.6-2.3)
[2024-06-18] MEDS: ASPIRIN 81 MG ENTERIC TABLET PO (09:49)
[2024-06-18] MEDS: METOPROLOL SUCCINATE EXT REL 25 MG TABCR PO (09:49)
[2024-06-18] MEDS: ATORVASTATIN 40 MG TABLET PO (09:49)
[2024-06-18] MEDS: EMPAGLIFLOZIN 10 MG TABLET PO (09:49)
[2024-06-18] MEDS: LOSARTAN POTASSIUM 25 MG TABLET PO (09:50)
--- NOTE | 2024-06-18 11:38 | WPDHPUPDATE1 ---
History and Physical Update Update Date/Time: 06/18/24 11:28 History and Physical has been reviewed, including an updated exam of the patient. There are NO changes in the patient's condition. Risks, benefits, and alternatives have been discussed and questions answered. Patient agrees to proceed with procedure.
--- NOTE | 2024-06-18 11:38 | WPDMODSED ---
Moderate Sedation Note-Pt Data Patient Data Allergies Allergy/AdvReac Type Severity Reaction Status Date / Time No Known Allergies Allergy Verified 06/14/24 08:51 Home Medications ?Medication ?Instructions ?Recorded ?Confirmed ?Type aspirin 81 mg tablet,delayed 81 mg PO QAM #90 tabs 05/04/24 06/14/24 Rx release atorvastatin 40 mg tablet 40 mg PO DAILY #90 tabs 05/04/24 06/14/24 Rx empagliflozin 10 mg tablet 10 mg PO DAILY #90 tabs 05/04/24 06/14/24 Rx (Jardiance) metoprolol succinate 25 mg 25 mg PO QAM #90 tabs 05/04/24 06/14/24 Rx tablet,extended release 24 hr (Toprol XL) Current Medications: Active Medications Acetaminophen (Acetaminophen 325 Mg Tablet) 650 mg PO Q6H PRN PRN Reason: Mild Pain (1-3) or Fever Aspirin (Aspirin 81 Mg Enteric Tablet) 81 mg PO QAM [facility] Last Admin: 06/18/24 09:49 Dose: 81 mg Atorvastatin Calcium (Atorvastatin 40 Mg Tablet) 40 mg PO DAILY [facility] Last Admin: 06/18/24 09:49 Dose: 40 mg Empagliflozin (Empagliflozin 10 Mg Tablet) 10 mg PO DAILY [facility] Last Admin: 06/18/24 09:49 Dose: 10 mg Enoxaparin Sodium (Enoxaparin 40 Mg/0.4 Ml Syringe) 40 mg SUB-Q DAILY [facility] Last Admin: 06/17/24 08:22 Dose: 40 mg Furosemide (Furosemide 40 Mg Tablet) 40 mg PO DAILY [facility] Last Admin: 06/18/24 09:50 Dose: Not Given Losartan Potassium (Losartan Potassium 25 Mg Tablet) 25 mg PO DAILY [facility] Last Admin: 06/18/24 09:50 Dose: 25 mg Metoprolol Succinate (Metoprolol Succinate Ext Rel 25 Mg Tabcr) 25 mg PO QAM [facility] Last Admin: 06/18/24 09:49 Dose: 25 mg Sedation/Anesthesia: No previous sedation/anesthesia problems (including family history). [facility] Past Medical History Medical History (Updated 06/15/24 @ 09:59 by Flako Moreno MD) Aortic stenosis CHF (congestive heart failure) Family History Family History (Updated 04/30/24 @ 22:56 by Rain Casillas RN) Father Acute myocardial infarction Hypertension Sibling Acute myocardial infarction Social History Social History Smoking status: Former smoker Tobacco type: cigarettes Smoking end date: 04/26/24 Alcohol intake: current Drinks per week: 1 Substance use: never Substance use type: does not use Do You Feel Safe in your Home?: Yes Lack of Transportation: No Lack of Food: Never True Current Housing: I Have Housing Concerned About Future Housing: No Difficulty Paying Gas/Electric Bills: No Difficulty Paying for Meds: No Currently Unemployed: No Education: High School Diploma/GED Difficulty w/ Childcare or Family Care: No Spiritual care concerns: No Mod Sed Physical Exam Physical Exam Pre Procedural Exam: Normal: Heart Size and Heart Rate Hours since solid foods: 18 Hours since liquid intake: 18 Mallampati Classification: class II Internal Medicine - PN: Obj Da Vital Signs Vital Signs: Vital Signs - 24 hr 06/17/24 12:00 06/17/24 12:00 06/17/24 12:00 Temperature 36.6 C Pulse Rate 71 75 Respiratory Rate 20 Blood Pressure 138/88 Pulse Oximetry 97 Oxygen Delivery Room Air 06/17/24 14:00 06/17/24 16:00 06/17/24 16:00 Temperature Pulse Rate 70 71 Respiratory Rate Blood Pressure Pulse Oximetry Oxygen Delivery Room Air 06/17/24 16:00 06/17/24 18:00 06/17/24 20:00 Temperature 36.7 C Pulse Rate 71 76 Respiratory Rate 16 Blood Pressure 129/80 Pulse Oximetry 97 Oxygen Delivery Room Air 06/17/24 20:00 06/17/24 20:11 06/17/24 23:19 Temperature 36.7 C 36.7 C Pulse Rate 76 73 71 Respiratory Rate 22 H 20 Blood Pressure 130/70 141/62 H Pulse Oximetry 95 92 Oxygen Delivery 06/17/24 23:57 06/18/24 00:00 06/18/24 04:00 Temperature Pulse Rate 73 Respiratory Rate Blood Pressure Pulse Oximetry Oxygen Delivery Room Air Room Air 06/18/24 04:00 06/18/24 04:12 06/18/24 06:48 Temperature 36.5 C 36.4 C Pulse Rate 81 69 83 Respiratory Rate 22 H 22 H Blood Pressure 139/85 159/61 H Pulse Oximetry 95 98 Oxygen Delivery 06/18/24 09:49 Temperature Pulse Rate 75 Respiratory Rate Blood Pressure Pulse Oximetry Oxygen Delivery Intake/Output Intake/Output: Intake & Output 06/15/24 06/16/24 06/17/24 06/18/24 23:59 23:59 23:59 23:59 Intake Total 630 572 0878 150 Output Total 1700 1525 1500 200 Balance -1220 -545 -80 -50 Meds/Results Medications: Active Medications Generic Name Dose Route Start Last Admin Trade Name Cassius PRN Reason Stop Dose Admin Acetaminophen 650 mg 06/16/24 07:03 Acetaminophen 325 Mg Tablet PO Q6H PRN Mild Pain (1-3) or Fever Aspirin 81 mg 06/14/24 09:00 06/18/24 09:49 Aspirin 81 Mg Enteric Tablet PO 81 mg QAM [facility] Administration Atorvastatin Calcium 40 mg 06/14/24 09:00 06/18/24 09:49 Atorvastatin 40 Mg Tablet PO 40 mg DAILY TESSIE Administration Empagliflozin 10 mg 06/16/24 09:00 06/18/24 09:49 Empagliflozin 10 Mg Tablet PO 10 mg DAILY TESSIE Administration Enoxaparin Sodium 40 mg 06/14/24 09:00 06/17/24 08:22 Enoxaparin 40 Mg/0.4 Ml Syringe SUB-Q 40 mg DAILY TESSIE Administration Furosemide 40 mg 06/17/24 09:00 06/18/24 09:50 Furosemide 40 Mg Tablet PO Not Given DAILY [facility] Losartan Potassium 25 mg 06/14/24 09:00 06/18/24 09:50 Losartan Potassium 25 Mg Tablet PO 25 mg DAILY TESSIE Administration Metoprolol Succinate 25 mg 06/14/24 09:00 06/18/24 09:49 Metoprolol Succinate Ext Rel 25 Mg Tabcr PO 25 mg QAM TESSIE Administration Radiology Results: ITS Impressions Chest X-Ray 06/14/24 05:38 Impression: Moderate right pleural effusion with right basilar atelectasis or possibly pneumonia. Probable minimal left basilar atelectasis. Stable cardiomegaly. Labs 06/18/24 04:07 06/18/24 04:07 Labs: Laboratory Results - last 24 hr 06/18/24 04:07 WBC 6.8 RBC 4.26 L Hgb 12.8 L Hct 38.0 L MCV 89.2 MCH 30.0 MCHC 33.7 RDW 13.2 Plt Count 248 MPV 10.8 H Immature Gran % (Auto) 0.1 Neut % (Auto) 55.5 Lymph % (Auto) 22.0 [place] % (Auto) 14.0 H Eos % (Auto) 7.2 H Baso % (Auto) 1.2 Lymph # (Auto) 1.50 [place] # (Auto) 1.0 H Eos # (Auto) 0.5 H Baso # (Auto) 0.1 Abs Immat Gran (auto) 0.01 Absolute Neuts (auto) 3.8 Absolute Nucleated RBC 0.000 Nucleated RBC % 0.0 PT 14.6 INR 1.1 APTT 33.9 Sodium 138 Potassium 3.8 Chloride 106 Carbon Dioxide 28 Anion Gap 4 BUN 23 H Creatinine 1.50 H Estim Creat Clear Calc 44 Estimated GFR 46 L Glucose 99 Calcium 9.5 Phosphorus 4.7 H Magnesium 2.4 H Albumin 3.9 ASA Classification/Sedation ASA Classification/Sedation ASA Class: III Emergent: No Risks: Risks, benefits and alternatives explained and patient/family accepted plan for sedation. Patient re-evaluated immediately prior to sedation.
--- NOTE | 2024-06-18 16:22 | WPDCARDPROC ---
Cardiac Cath Procedure Note Date of procedure:: 06/18/24 Performing physician:: CATHETERIZATION LABORATORY REPORT Procedure Date: 06/18/2024 Referring Physician: Dr. Moreno Anesthesia: Versed and Fentanyl were ordered and given in my presence at , procedure ended at . Supervision of nurse monitored moderate sedation with Versed and Fentanyl was provided for minutes. Pre-op Diagnosis: NSTEMI Post-op Diagnosis: NSTEMI Procedure(s): Left heart catheterization with coronary angiography Access Site: Right radial artery Brief History and Clinical Indications: All risks, benefits and alternatives to left heart catheterization with or without percutaneous coronary intervention was discussed at length with the patient. Risk of complications including but not limited to bleeding, infection, arrhythmia, stroke, worsening kidney function, blood loss, groin hematoma, limb loss, emergency coronary artery bypass grafting, and even were discussed with the patient and all questions were answered. The patient understood and wished to proceed. Time out called, patient name, date of , medical record number, allergies, procedure performed, identify Supervisor Winding Department, patient and staff member concurred with accurate data, procedure carried on. Findings: LEFT HEART CATHETERIZATION FINDINGS: 1. Left main: The left main coronary artery is widely patent without any significant obstructive disease. 2. Left anterior descending: The LAD gives off 1 major significant diagonal branch. This diagonal branch has diffuse 20-30% stenosis. The LAD in its mid body has diffuse 30-50% calcific stenosis. 3. Left circumflex: The left circumflex artery is a large dominant vessel that gives rise to 1 OM branch, a PDA branch and several posterolateral branches. In its mid body after the 1st OM branch there is a 60% stenosis. The OM1 branch has diffuse 10-30% stenosis. 4. Right coronary artery: The RCA is a nondominant vessel with subtotal occlusion. There is faint [id number] collaterals. 5. Left ventricle: A pigtail catheter was used to attempt to cross the aortic valve however was unable to cross. 6. Opening AO pressure 185/81 and closing AO pressure 117/28 Description of Procedure: Informed consent signed and placed in the chart. Patient transferred to slabber light room. Prepped and draped in usual sterile fashion. 2% lidocaine injected subcutaneously in right wrist area. 22-gauge venipuncture catheter used to access the right radial artery with the Seldinger technique. 6-FR slender sheath placed in right radial artery. Nitroglycerin 200mcg, Verapamil 2.5mg, and Heparin 5000U was given intraarterial through the sheath. J wire advanced under fluoroscopy 5F TIG diagnostic catheter engaged Left Main Coronary Artery. The TIG diagnostic catheter was unstable and thus switched out for a JL 4 diagnostic catheter. 5F JR4 diagnostic catheter engaged Right Coronary Artery Multiple orthogonal angiogram obtained and reviewed 5F Pigtail diagnostic catheter was unable to cross the aortic valve Hemostasis was achieved by application of TR band. Assessment: Moderate CAD Post Operative Condition: Stable No significant blood loss Disposition: Floor Plan: Follow up outpatient for repeat TTE in 6 months in anticipation for TAVR workup Mark Navarrete Interventional Cardiology
--- NOTE | 2024-06-18 18:09 | PM.IMPN ---
Progress Note: A&P Assessment and Plan (1) CHF (congestive heart failure): Code(s): I50.9 - Heart failure, unspecified Status: Acute Assessment and Plan: Patient presents with SOB. CXR showing moderate right pleural effusion with right basilar atelectasis and cardiomegaly. BNP 94429 which is twice as high compared to last admission. Patient was hospitalized here in April 2024 for CHF. Echo in April 2024 showing severely increased LV wall thickness with reduced function with EF of 45-50% and moderate . He was discharged home on Lipitor, Toprol XL, aspirin and empagliflozin. No diuretics. He has been compliant with his home medication regiment. Etiology of his acute CHF is unclear. Consider dietary indiscretion given the recent holidays. Consider underlying ischemia. Patient started on IV diuretics with clinical improvement. Continue metoprolol XL and Cozaar Transitioned to oral Lasix Monitor daily weights, urine output and clinical exam. Cardiology following. CHF teaching (2) Elevated troponin: Code(s): R79.89 - Other specified abnormal findings of blood chemistry Status: Acute Assessment and Plan: Troponin elevated at 0.05 and flat on repeat. EKG shows sinus rhythm with LAE and LVH but no significant ST-T wave changes. Repeat EKG shows similar findings. Suspect type 2 [place] related to CHF exacerbation. Continue aspirin, Lipitor and metoprolol. LHC showing moderate CAD. Please see report for details. Monitor on telemetry. Cardiology following. (3) COPD (chronic obstructive pulmonary disease): Code(s): J44.9 - Chronic obstructive pulmonary disease, unspecified Status: Acute Assessment and Plan: Patient with underlying COPD related to his tobacco use. No wheezing appreciated. He is not on inhalers at home. Follow clinically at this time. (4) Pleural effusion: Code(s): J90 - Pleural effusion, not elsewhere classified Status: Acute Assessment and Plan: Pleural effusions noted on imaging. [place] related to CHF exacerbation but unilateral and he is a smoker Plan for right thoracentesis if patient agreeable. (5) Hypertension: Code(s): I10 - Essential (primary) hypertension Status: Acute Assessment and Plan: Patient's blood pressure was reviewed on 06/18 Blood pressure elevated at times Will continue current medications. (6) Aortic stenosis: Code(s): I35.0 - Nonrheumatic aortic (valve) stenosis Status: Acute Assessment and Plan: Patient with moderate aortic stenosis by echocardiogram in April 2024. Unable to cross the valve with [facility]. This will need to be followed outpatient. (7) Tobacco dependence: Code(s): F17.200 - Nicotine dependence, unspecified, uncomplicated Status: Acute Assessment and Plan: Patient was congratulated on smoking cessation. Plan DVT prophylaxis Lovenox Code status full code Subjective Date/time seen: 06/18/24 18:09 Interval history: 78yo male with CH and COPD here for SOB. SLept well. No Cp or SOB. No n/v. Exam Narrative: AF 97.5 147/105 68 16 99% ra Gen - NARD Chest - decreased BS in the bases CV - RRR S1/S2. Tele showing no signifincat dysrhythmias Abd - Soft, NT/ND, Positive BS Ext - no pedal edema Psych - Nml mood and affect Skin - Warm and dry Objective Data Vital Signs Vital Signs: Vital Signs - 24 hr 06/17/24 20:00 06/17/24 20:00 06/17/24 20:11 Temperature 98.0 F Pulse Rate 76 73 Respiratory Rate 22 H Blood Pressure 130/70 Pulse Oximetry 95 Oxygen Delivery Room Air 06/17/24 23:19 06/17/24 23:57 06/18/24 00:00 Temperature 98.0 F Pulse Rate 71 73 Respiratory Rate 20 Blood Pressure 141/62 H Pulse Oximetry 92 Oxygen Delivery Room Air 06/18/24 04:00 06/18/24 04:00 06/18/24 04:12 Temperature 97.7 F Pulse Rate 81 69 Respiratory Rate 22 H Blood Pressure 139/85 Pulse Oximetry 95 Oxygen Delivery Room Air 06/18/24 06:48 06/18/24 08:00 06/18/24 09:49 Temperature 97.6 F Pulse Rate 83 58 L 75 Respiratory Rate 22 H Blood Pressure 159/61 H Pulse Oximetry 98 Oxygen Delivery 06/18/24 10:00 06/18/24 12:00 06/18/24 12:07 Temperature 97.5 F L Pulse Rate 71 63 63 Respiratory Rate 20 Blood Pressure 128/63 Pulse Oximetry 95 Oxygen Delivery 06/18/24 14:00 06/18/24 16:00 06/18/24 17:30 Temperature Pulse Rate 63 60 68 Respiratory Rate 15 Blood Pressure 145/87 H Pulse Oximetry 96 Oxygen Delivery Room Air 06/18/24 17:45 Temperature Pulse Rate 68 Respiratory Rate 16 Blood Pressure 147/105 H Pulse Oximetry 99 Oxygen Delivery Room Air Intake/Output Intake/Output: Intake & Output 06/15/24 06/16/24 06/17/24 06/18/24 23:59 23:59 23:59 23:59 Intake Total 297 844 7163 150 Output Total 1700 1525 1500 1050 Balance -1220 -545 -80 -900 Meds/Results Medications: Active Medications Generic Name Dose Route Start Last Admin Trade Name Freq PRN Reason Stop Dose Admin Acetaminophen 650 mg 06/16/24 07:03 Acetaminophen 325 Mg Tablet PO Q6H PRN Mild Pain (1-3) or Fever Aspirin 81 mg 06/14/24 09:00 06/18/24 09:49 Aspirin 81 Mg Enteric Tablet PO 81 mg QAM TESSIE Administration Atorvastatin Calcium 40 mg 06/14/24 09:00 06/18/24 09:49 Atorvastatin 40 Mg Tablet PO 40 mg DAILY TESSIE Administration Empagliflozin 10 mg 06/16/24 09:00 06/18/24 09:49 Empagliflozin 10 Mg Tablet PO 10 mg DAILY TESSIE Administration Enoxaparin Sodium 40 mg 06/14/24 09:00 06/17/24 08:22 Enoxaparin 40 Mg/0.4 Ml Syringe SUB-Q 40 mg DAILY TESSIE Administration Furosemide 40 mg 06/17/24 09:00 06/18/24 09:50 Furosemide 40 Mg Tablet PO Not Given DAILY TESSIE Sodium Chloride 1,000 mls @ 125 mls/hr 06/18/24 16:21 Normal Saline Iv IV CONT 06/19/24 00:20 .Q8H ONE Losartan Potassium 25 mg 06/14/24 09:00 06/18/24 09:50 Losartan Potassium 25 Mg Tablet PO 25 mg DAILY TESSIE Administration Metoprolol Succinate 25 mg 06/14/24 09:00 06/18/24 09:49 Metoprolol Succinate Ext Rel 25 Mg Tabcr PO 25 mg QAM TESSIE Administration Radiology Results: ITS Impressions Chest X-Ray 06/14/24 05:38 Impression: Moderate right pleural effusion with right basilar atelectasis or possibly pneumonia. Probable minimal left basilar atelectasis. Stable cardiomegaly. Labs Labs: Laboratory Results - last 24 hr 06/18/24 04:07 WBC 6.8 RBC 4.26 L Hgb 12.8 L Hct 38.0 L MCV 89.2 MCH 30.0 MCHC 33.7 RDW 13.2 Plt Count 248 MPV 10.8 H Immature Gran % (Auto) 0.1 Neut % (Auto) 55.5 Lymph % (Auto) 22.0 [place] % (Auto) 14.0 H Eos % (Auto) 7.2 H Baso % (Auto) 1.2 Lymph # (Auto) 1.50 [place] # (Auto) 1.0 H Eos # (Auto) 0.5 H Baso # (Auto) 0.1 Abs Immat Gran (auto) 0.01 Absolute Neuts (auto) 3.8 Absolute Nucleated RBC 0.000 Nucleated RBC % 0.0 PT 14.6 INR 1.1 APTT 33.9 Sodium 138 Potassium 3.8 Chloride 106 Carbon Dioxide 28 Anion Gap 4 BUN 23 H Creatinine 1.50 H Estim Creat Clear Calc 44 Estimated GFR 46 L Glucose 99 Calcium 9.5 Phosphorus 4.7 H Magnesium 2.4 H Albumin 3.9
[2024-06-18] MEDS: SODIUM CHLORIDE 0.9% IV 1,000 ML 125 ML IV CONT (21:46)
--- NOTE | 2024-06-18 22:09 | PC.NURSE ---
This patient, Rigo Caballero, was received from [facility] on 06/18/24 at 2045. Patient/family oriented to unit policies and routines
[2024-06-19] VITALS (12 sets, daily range): BP systolic 133–165; BP diastolic 70–86; PULSE 63–78; RESP 18–22; TEMP 36.6–36.7; O2SAT 98–100
[2024-06-19 05:41] LABS: INR 1.1; Prothrombin Time 14.2 Seconds (11.1-14.7)
[2024-06-19 05:43] LABS: Partial Thromboplastin Time 33.3 Seconds (22.3-36.8)
[2024-06-19 05:58] LABS: Alanine Aminotransferase 54 U/L (6-50); Albumin Level 3.9 g/dL (3.5-5.1); Alkaline Phosphatase 93 U/L (38-126); Anion Gap 7 mmol/L (4-12); Aspartate Amino Transferase 64 U/L (17-59); Blood Urea Nitrogen 23 mg/dL (9-20); Calcium 9.3 mg/dL (8.4-10.2); Carbon Dioxide 24 mmol/L (22-30); Chloride 106 mmol/L (98-107); Estimated CRCL calculation 57 ml/min; Estimated Glomerular Filt Rate > 60; Glucose 89 mg/dL (65-110); Lactate Dehydrogenase 197 U/L (120-246); Potassium 3.7 mmol/L (3.4-5.0); Sodium 137 mmol/L (137-145)
[2024-06-19] MEDS: LOSARTAN POTASSIUM 25 MG TABLET PO (09:34)
[2024-06-19] MEDS: FUROSEMIDE 40 MG TABLET PO (09:34)
[2024-06-19] MEDS: METOPROLOL SUCCINATE EXT REL 25 MG TABCR PO (09:35)
[2024-06-19] MEDS: EMPAGLIFLOZIN 10 MG TABLET PO (09:35)
[2024-06-19] MEDS: ATORVASTATIN 40 MG TABLET PO (09:36)
[2024-06-19 10:54] LABS: pH Pleural Fluid > 7.500 (7.210-7.500)
[2024-06-19 12:08] LABS: Appearance Pleural Fluid Hazy (Clear); Color Pleural Fluid Yellow (Colorless); Pleural fluid source Pleural fluid
[2024-06-19 12:11] LABS: Lymphocytes Pleural Fluid 46 %; Macrophages Pleural Fluid 45 %; Monocytes Pleural Fluid 4 %; Neutrophils Pleural Fluid 5 % (0-25); Nucleated Cell Pleural Fluid 1152 /uL (0-1000); RBC Pleural Fluid < 2000 /uL (0-10000)
--- NOTE | 2024-06-19 12:50 | PM.PNCARD ---
Progress Note: A&P Assessment and Plan (1) CHF (congestive heart failure): Code(s): I50.9 - Heart failure, unspecified Status: Acute Plan 1. Heart failure with mildly reduced LVEF of 45-50% per TTE 05/01/2024 Continue PO Lasix. Continue Jardiance 10mg once daily. Continue Toprol 25mg once daily. Stop Losartan. Switch to Entresto 24/26mg BID. Start Spironolactone 25mg once daily. Uptitrate heart failure GDTM as tolerated. 2. Coronary artery disease [facility] 06/18 shows nondominant RCA with subtotal occlusion with faint [id number] collaterals, however, moderate CAD of the left coronary system. Continue ASA 81mg once daily, high intensity statin. 3. Moderate aortic stenosis Outpatient follow up 4. Hypertension Continue PO Lasix. Continue Jardiance 10mg once daily. Continue Toprol 25mg once daily. Stop Losartan. Switch to Entresto 24/26mg BID. Start Spironolactone 25mg once daily. 5. Hyperlipidemia Continue high intensity statin Will arrange close follow up in our office. Recommendations and plan discussed with Hospitalist. Subjective Date/time seen: 06/19/24 12:50 Interval history: Reason for visit: CHF, , CAD HPI: Mr. Rigo Caballero is a 78-year-old pleasant gentleman known to have moderate , right pleural effusion status post thoracentesis, congestive heart failure, COPD with exacerbation. Was admitted in April with COPD exacerbation, pleural effusion, pneumonia and heart failure. His echo at that time showed an EF 45-50% with moderate aortic stenosis. Was subsequently discharged home after improvement with the planned follow-up Cardiology as an outpatient. He was compliant with his medications but came in for cardiology follow-up with worsening shortness of breath and pleuritic chest pain. Was found to have elevated BNP and flat troponin profile. EKG shows normal sinus rhythm, poor R-wave progression in precordial leads. Echo shows an EF of 45-50%, moderate aortic stenosis: MG 31 mmHg, and aortic valve area of 1.15 cm2. SVI 35, DON by planimetry 1.2.; DI 0.28 Date of service 06/19: Underwent thoracentesis today. Feeling much better. Denies shortness of breath. Review of Systems Review of Systems: All systems reviewed & are unremarkable except as noted in HPI and below (HPI) Exam Const: General: comfortable and no acute distress HENMT: Mouth: Yes moist mucous membranes Eyes: General: appearance normal, both eyes and all related structures Sclera: sclerae normal Resp: Effort & Inspection: normal respiratory effort Auscultation: clear to auscultation bilaterally Cardio: Rate: regular rate Rhythm: regular rhythm Skin: General skin exam: normal color Neuro: Speech: normal speech Psych: Mental Status: mental status grossly normal Affect: normal affect Objective Data Vital Signs Vital Signs: Vital Signs - 24 hr 06/18/24 14:00 06/18/24 15:55 06/18/24 16:00 Temperature Pulse Rate 63 60 Respiratory Rate Blood Pressure Pulse Oximetry Oxygen Delivery Room Air 06/18/24 17:30 06/18/24 17:45 06/18/24 18:00 Temperature Pulse Rate 68 68 66 Respiratory Rate 15 16 16 Blood Pressure 145/87 H 147/105 H 148/97 H Pulse Oximetry 96 99 98 Oxygen Delivery Room Air Room Air Room Air 06/18/24 18:15 06/18/24 18:30 06/18/24 18:45 Temperature Pulse Rate 78 78 66 Respiratory Rate 16 14 15 Blood Pressure 168/85 H 114/69 152/85 H Pulse Oximetry 98 97 98 Oxygen Delivery Room Air Room Air Room Air 06/18/24 19:00 06/18/24 19:15 06/18/24 19:30 Temperature Pulse Rate 72 68 75 Respiratory Rate 15 15 16 Blood Pressure 154/72 H 144/62 H 136/85 Pulse Oximetry 99 100 100 Oxygen Delivery Room Air Room Air Room Air 06/18/24 19:45 06/18/24 20:00 06/18/24 20:00 Temperature Pulse Rate 67 70 Respiratory Rate 16 14 Blood Pressure 151/77 H 152/75 H Pulse Oximetry 100 98 Oxygen Delivery Room Air Room Air Room Air 06/18/24 20:15 06/18/24 20:32 06/18/24 20:49 Temperature 36.5 C Pulse Rate 55 L 71 72 Respiratory Rate 14 14 20 Blood Pressure 166/84 H 163/74 H 147/86 H Pulse Oximetry 99 99 98 Oxygen Delivery Room Air Room Air 06/18/24 21:20 06/18/24 22:00 06/18/24 22:22 Temperature Pulse Rate 83 67 71 Respiratory Rate Blood Pressure 181/76 H 149/84 H Pulse Oximetry Oxygen Delivery 06/18/24 23:17 06/19/24 00:00 06/19/24 00:00 Temperature 36.8 C Pulse Rate 66 63 Respiratory Rate 18 Blood Pressure 142/62 H Pulse Oximetry 98 Oxygen Delivery Room Air 06/19/24 00:30 06/19/24 04:00 06/19/24 04:00 Temperature Pulse Rate 70 71 Respiratory Rate Blood Pressure 153/86 H Pulse Oximetry Oxygen Delivery Room Air 06/19/24 04:24 06/19/24 07:45 06/19/24 08:00 Temperature 36.7 C 36.6 C Pulse Rate 75 78 Respiratory Rate 22 H 20 Blood Pressure 135/79 165/84 H Pulse Oximetry 98 98 Oxygen Delivery Room Air 06/19/24 08:00 06/19/24 09:35 06/19/24 10:00 Temperature Pulse Rate 77 70 72 Respiratory Rate Blood Pressure Pulse Oximetry Oxygen Delivery 06/19/24 11:32 Temperature 36.7 C Pulse Rate 76 Respiratory Rate 20 Blood Pressure 159/76 H Pulse Oximetry 99 Oxygen Delivery Intake/Output Intake/Output: Intake & Output 06/16/24 06/17/24 06/18/24 06/19/24 23:59 23:59 23:59 23:59 Intake Total 980 8038 863 5080 Output Total 1525 1500 1050 1000 Balance -545 -80 -900 500 Meds/Results Medications: Active Medications Generic Name Dose Route Start Last Admin Trade Name Freq PRN Reason Stop Dose Admin Acetaminophen 650 mg 06/16/24 07:03 Acetaminophen 325 Mg Tablet PO Q6H PRN Mild Pain (1-3) or Fever Aspirin 81 mg 06/14/24 09:00 06/18/24 09:49 Aspirin 81 Mg Enteric Tablet PO 81 mg QAM TESSIE Administration Atorvastatin Calcium 40 mg 06/14/24 09:00 06/19/24 09:36 Atorvastatin 40 Mg Tablet PO 40 mg DAILY TESSIE Administration Empagliflozin 10 mg 06/16/24 09:00 06/19/24 09:35 Empagliflozin 10 Mg Tablet PO 10 mg DAILY TESSIE Administration Enoxaparin Sodium 40 mg 06/14/24 09:00 06/17/24 08:22 Enoxaparin 40 Mg/0.4 Ml Syringe SUB-Q 40 mg DAILY TESSIE Administration Furosemide 40 mg 06/17/24 09:00 06/19/24 09:34 Furosemide 40 Mg Tablet PO 40 mg DAILY TESSIE Administration Losartan Potassium 25 mg 06/14/24 09:00 06/19/24 09:34 Losartan Potassium 25 Mg Tablet PO 25 mg DAILY TESSIE Administration Metoprolol Succinate 25 mg 06/14/24 09:00 06/19/24 09:35 Metoprolol Succinate Ext Rel 25 Mg Tabcr PO 25 mg QAM TESSIE Administration Radiology Results: ITS Impressions Chest X-Ray 06/19/24 10:44 IMPRESSION: 1. Small right pleural effusion with improvement status post thoracentesis. 2. Improved airspace opacities at right lung base, likely atelectasis. Thoracentesis Ultrasound 06/19/24 11:12 IMPRESSION: 1. Successful ultrasound-guided thoracentesis yielding 1000 mL of yellow fluid. Labs Labs: Laboratory Results - last 24 hr 06/19/24 06/19/24 06/19/24 04:45 10:20 10:30 PT 14.2 INR 1.1 APTT 33.3 Sodium 137 Potassium 3.7 Chloride 106 Carbon Dioxide 24 Anion Gap 7 BUN 23 H Creatinine 1.14 Estim Creat Clear Calc 57 Estimated GFR > 60 Glucose 89 Calcium 9.3 Total Bilirubin 1.0 AST 64 H ALT 54 H Alkaline Phosphatase 93 Lactate Dehydrogenase 197 Total Protein 8.0 Albumin 3.9 Pleural Fluid Source Pleural fluid Pleural Color Yellow Pleural Appearance Hazy Pleural pH > 7.500 H Pleural RBC < 2000 Pleural Nuc Cells 1152 H Pleural Neutrophils 5 Pleural Lymphocytes 46 Pleural Monocytes 4 Pleural Macrophages 45
--- NOTE | 2024-06-19 16:21 | P.DS_ITS ---
DS: Admitting Diagnosis Discharge Date 06/19/24 Admitting Diagnosis Shortness of breath DS: Discharge Diagnosis Discharge Diagnosis (1) CHF (congestive heart failure): Code(s): I50.9 - Heart failure, unspecified Status: Acute (2) Elevated troponin: Code(s): R79.89 - Other specified abnormal findings of blood chemistry Status: Acute (3) COPD (chronic obstructive pulmonary disease): Code(s): J44.9 - Chronic obstructive pulmonary disease, unspecified Status: Acute (4) Pleural effusion: Code(s): J90 - Pleural effusion, not elsewhere classified Status: Acute (5) Hypertension: Code(s): I10 - Essential (primary) hypertension Status: Acute (6) Aortic stenosis: Code(s): I35.0 - Nonrheumatic aortic (valve) stenosis Status: Acute (7) Tobacco dependence: Code(s): F17.200 - Nicotine dependence, unspecified, uncomplicated Status: Acute DS: Summary Hospital Course Reason for hospitalization: 78yo male with CH and COPD here for SOB. Please see H&P for details Hospital Course: Patient presented with SOB. CXR showing moderate right pleural effusion with right basilar atelectasis and cardiomegaly. BNP 78696 which is twice as high compared to last admission. Patient was hospitalized here in April 2024 for CHF. Echo in April 2024 showing severely increased LV wall thickness with re duced function with EF of 45-50% and moderate . He was discharged home on Lipitor, Toprol XL, aspirin and empagliflozin. No diuretics. He has been compliant with his home medication regiment. Etiology of his acute CHF is unclear. Patient started on IV diuretics with clinical improvement. We continued his empagliflozin, metoprolol XL and Cozaar. He was transitioned to oral Lasix. Cardiology following. Cozaar changed to Entresto and Spironolactone added. Troponin elevated at 0.05 and flat on repeat. EKG shows sinus rhythm with LAE and LVH but no significant ST-T wave changes. Repeat EKG shows similar findings. Suspect type 2 RI related to CHF exacerbation. We continued aspirin, Lipitor and metoprolol. [facility] 06/18 shows nondominant RCA with subtotal occlusion with faint [id number]-[id number] collaterals, however, moderate CAD of the left coronary system. Please see report for details. Patient with underlying COPD related to his tobacco use. No wheezing appreciated. He is not on inhalers at home. Pleural effusions noted on imaging. [place] related to CHF exacerbation but unilateral and he is a smoker so he underwent thoracentesis with removal of 1L of clear yellow fluid. Plural pH 7.5. Plural WBC 1152 with 46% lymphocytes and 45% macrophages. Other studies pending. No fevers, pleuritic chest pain or diaphoresis. Will follow up on culture results. Patient with moderate aortic stenosis by echocardiogram in April 2024. Unable to cross the valve with [facility] this admission. This will be followed outpatient. Patient was congratulated on smoking cessation. He overall did well and was able to be discharged home on 06/19/24. Status at Discharge Cognitive/behavioral status at discharge: stable Time Spent with Patient Time attestation: Total time spent providing and/or coordinating discharge services: 36 minutes Time spent: Greater than 30 minutes Exam Narrative: AF 97.9 133/70 73 18 100% ra Gen - NARD Chest - improved air exchange left base. CV - RRR S1/S2 Abd - Soft, NT/ND, Positive BS Ext - no pedal edema Psych - Nml mood and affect Skin - Warm and dry DS: Data Data Completed and Pending Pending studies at discharge: Pending at discharge 06/18/24 18:16 Cytology [PTH] Routine Labs on day of discharge: Labs from last 24 hours 06/19/24 06/19/24 06/19/24 10:30 10:20 04:45 PT 14.2 INR 1.1 APTT 33.3 Sodium 137 Potassium 3.7 Chloride 106 Carbon Dioxide 24 Anion Gap 7 BUN 23 H Creatinine 1.14 Estim Creat Clear Calc 57 Estimated GFR > 60 Glucose 89 Calcium 9.3 Total Bilirubin 1.0 AST 64 H ALT 54 H Alkaline Phosphatase 93 Lactate Dehydrogenase 197 Total Protein 8.0 Albumin 3.9 Pleural Fluid Source Pleural fluid Pleural Color Yellow Pleural Appearance Hazy Pleural pH > 7.500 H Pleural RBC < 2000 Pleural Nuc Cells 1152 H Pleural Neutrophils 5 Pleural Lymphocytes 46 Pleural Monocytes 4 Pleural Macrophages 45 Pleural Total Protein Pending Pleural Albumin Pending Pleural LDH Pending Pleural Glucose Pending Pleural Amylase Pending Pleural Cholesterol Pending Pleural Triglycerides Pending Discharge Plan Discharge Attending physician on discharge: Flako Moreno Consulting providers: Karissa Lopez Discharging Clinician: Flako Moreno Anticipated Discharge Date/Time: 06/19/24 16:33 Patient Disposition: Home, Self-Care Activity: as tolerated Diet: heart healthy Discharge Instructions: Check blood pressure 1 to 2 times a day. Record and bring into your doctor for review. Call your doctor if your blood pressure is greater than 180/110. Avoid all products that contain nicotine or tobacco. Take precautions to avoid falls. Rise slowly from a lying or sitting position. Pause before standing or walking. Check daily morning weights after voiding. Call your doctor if you gain more than 3 lb in 2 days or 5 lb in 1 week. Contact your doctor or call 911 and come to the Emergency Room if you have lightheadedness with standing or other worrisome symptoms. Avoid NSAIDs (ibuprofen, naproxen, Aleve). Tylenol is safe to take. Follow-up with your primary care provider in 1-2 weeks. Please call for appointment. Follow-up with Cardiology in 3-4 weeks. Please call for an appointment Thank you for using [facility] for your health care needs. Patient Instructions: Antibiotic Form Patient Language: Guinean Stand Alone Forms: General Discharge Information Follow-up/Referrals: Karissa Lopez MD [Physician] - Call for Appointment UNKNOWN,DOCTOR [Primary Care Provider] - Call for Appointment Discharge Medications: New furosemide 40 mg Tablet 40 mg PO DAILY Qty: 30 2RF spironolactone 25 mg Tablet 25 mg PO QAM Qty: 30 2RF sacubitril-valsartan [Entresto] 24-26 mg Tablet 1 tab PO Q12HR Qty: 30 2RF Continued atorvastatin 40 mg Tablet 40 mg PO DAILY Qty: 90 0RF aspirin 81 mg Tablet,Delayed Release (Dr/Ec) 81 mg PO QAM Qty: 90 0RF metoprolol succinate [Toprol XL] 25 mg Tablet Extended Release 24 Hr 25 mg PO QAM Qty: 90 0RF Jardiance 10 mg tablet 10 mg PO DAILY Qty: 90 0RF Other Ambulatory Orders: Basic Metabolic Panel (Routine) Timeframe: 1 Week Location: Determined by Patient Ordered By: Flako Moreno Date of admission: 06/14/24 05:28 Primary Care Provider: UNKNOWN,DOCTOR Admitting Provider: Flako Moreno Attending physician on admission: Flako Moreno Condition: Stable Hospitalist MIPS Heart Failure (Exclusion) Patient has history of Heart Transplant or Left Ventricular Assistive Device?: No IF YES, STOP HERE Heart Failure (Qualifier) Patient has current or prior documentation of LVEF less than or equal to 40%, or mod/servere depressed LVSF?: No IF NO, STOP HERE
--- OUTSIDE RECORDS SUMMARY | 2024-06-20 21:11 | XMS_ITS | CONTINUITY OF CARE DOCUMENT ---
Author Name isabella mason Address Unknown Organization [facility] Address [id number] [place] [address] [address] [place] [address] Phone [phone] Care Team Providers Care Vp & General Counsel Name Role Phone isabella mason Unavailable Unavailable
--- OUTSIDE RECORDS SUMMARY | 2024-06-20 21:49 | XMS_ITS | CONTINUITY OF CARE DOCUMENT ---
Author Name isabella mason Address Unknown Organization [facility] Address [address] [place] [address] [address] [place] [address] Phone [phone] Care Team Providers Care Medicare Insurance Specialist Name Role Phone isabella mason Unavailable Unavailable
--- OUTSIDE RECORDS SUMMARY | 2024-06-20 21:49 | XMS_ITS | Continuity of Care Document ---
Author Organization [facility] Address [address] [place] [address] Care Team Providers Care Physician Underwriter Name Role Phone UNKNOWN, DOCTOR Primary Care Provider Unavail able Shanta Lema PA-C Emergency Provider Hermelinda Babcock MD Admit Provider [phone] Hermelinda Babcock MD Attending Provider Megan Tucker DO Other Provider Care Teams Patient Care Team Team Status: Active Member Role Status Dates DOCTOR UNKNOWN Primary Care Provider Active Visit Care Team Team Status: Inactive Member Role Status Dates DOCTOR UNKNOWN Primary Care Provider Active Shanta Lema PA-C Emergency Provider Active Hermelinda Babcock MD Admit Provider, Attending Provi arelis Active Megan Tucker DO Other Provider Active Chief Complaint and Reason for Visit Chief Complaint Admit Date New onset CHF, Pneumonia May 02, 2024 4:11pm Reason for Visit Admit Date COPD (chronic obstructive pulmonary dise ase) May 02, 2024 4:11pm Elevated troponin May 02, 2024 4:11pm New onset of congestive heart failure No vember 2023 4:11pm Pleural effusion May 02, 2024 4:11pm Pneumonia May 02, 2024 4:11pm Tobacco dependence May 02, 2024 4:11pm Allergies, Adverse Reactions, Alerts No known allergies Social History Smoking Status Status Start Date End Date Date of Observa tion Ex-smoker (finding) April 30, 2024 10:40pm Observation Status Observation Response Date of Response Do You Feel Safe in your Home? Yes N ovember 2023 10:40pm Has Lack of Trans Kept You F rom Med Appts or Getting Meds? No April 30, 2024 10:40pm In Past 12 Months, Were You Worried Your Food Would Run Out? Never True April 30, 2024 1 0:40pm What is Your Housing Situati on Today? I Have Housing April 30, 2024 10:40pm Are You Worried That in Next 2 Mo, You Won't Have Housing? No April 30, 2024 10:40p m Do You Have Trouble Paying Y our Heating Or Electricity Bill? No April 30, 2024 10:40 pm Do You Have Trouble Paying F or Medicines? No April 30, 2024 10:40pm Are You Currently Unemployed and Looking for Work? No April 30, 2024 10:40pm Highest Level of Education Completed High School Diploma/GED April 30, 2024 10:40pm Do You Have Trouble With Childcare/Care of a Family Member? No April 30, 2024 10:40pm alcohol intake current April 30, 10:40pm Substance use type does not use April 10:40pm Patient Sex Male May 04, 3:59pm Assigned Sex Male [birth year], 1 948 Family History Relationship Condition Age at Onset Recorded Date/T radha father Acute myocardial infarction Unknown Hypertension Unknown sibling Acute myocardial infarction Unknown Problems Active Problems Medical Problem Onset Date Status Tobacco dependence Unknown Active Pleural effusion Unknown Active Elevated troponin Unknown Active COPD (chronic obstructive pulmonary disease) Unk nown Active New onset of congestive heart failure Unknown Active Pneumonia Unknown Active Medications Medication Status Dose Units Route Directions Qty Days St art Date Stop Date End Date Instructions Adherence Atorvastati n 40 mg Tablet Active 40 MG PO DAILY 90 Novemb er 2023 12:00a m Aspirin 81 mg Tablet,Melani yed Release (Dr/Ec) Active 81 MG PO Every Morning 90 Novemb er 2023 12:00a m Metoprolol Succinate (Toprol Xl) 25 mg Tablet Extended Release 24 Hr Active 25 MG PO Every Morning 90 Novemb er 2023 12:00a m Doxycycline Hyclate 100 mg Tablet Active 100 MG PO EVERY 12 HOURS 2 b er 2023 12:00a m Empaglifloz in (Jardiance) 10 mg tablet Active 10 MG PO DAILY 90 Novemb er 2023 12:00a m Amoxicillin -Pot Clavulanate 875-125 mg tablet Active 1 TABLET PO Q12H 6 Novemb er 2023 12:00a m Procedures Procedure Date Performed Status Anaerobic Culture May 01, 2024 active Aerobic Culture May 01, 2024 active Blood Culture April 30, 2024 active Procedure Notes Author Erica Wright [facility] Note Date/Time May 01, 2024 4:51pm [address] [place] [address] Operative Note Brief Signed Patient: Rigo Caballero MR#: [id number] : 1945 Acct:[id number] Age: 78 ADM Date: 04/30/24 Loc: [facility] 206-[address]: Hermelinda Babcock M.D. cc: ~ Procedure Note - Brief Procedure Note - Brief Date of procedure: 05/01/24 New onset CHF, Pneumonia Procedure performed: R sided thoracentesis Surgeon: Erica Wright MD Anesthesia: local Findings: sterile technique, US guidance, 1900cc thin yellow fluid removed from R hemithorax. CXR - no PTX specimen sent for evaluation Description of procedure: sterile technique, US guidance, 1900cc thin yellow fluid removed from R hemithorax. CXR - no PTX specimen sent for evaluation Estimated blood loss (mL): 0.1 Pathology: Yes Complications: No immediate complications Condition: Stable Disposition: Floor This report may have been done utilizing a voice recognition system. Attempts have been made to correct errors. However, there may be uncorrected grammatical,spelling, and recognition errors present. Report Initialized date/time: Erica Wright MD 05/01/241650 Electronically signed by: Erica Wright MD 05/01/241650 Relevant Diagnostic Tests and/or Laboratory Data Laboratory Results Test Date/Time Result Interpretation Reference Range Result Comment Performing Site White Blood Count May 02, 2024 4:04am 13.5 K/mm3 Above high normal 4.5-10.0 [facility] [id number] [facility] [place] [address] Red Blood Count May 02, 2024 4:04am 4.21 M/mm3 Below low normal 4.6-6.20 [facility] [id number] [address] [place] [address] Hemoglobin May 02, 2024 4:04am 13.0 g/dL Below low normal 14.0-18.0 [facility] [id number] [facility] [address] [address] Hematocrit May 02, 2024 4:04am 39.7 % Below low normal 42.0-52.0 [facility] [id number] [facility] [address] [address] Mean Corpuscular Volume May 02, 2024 4:04am 94.3 fL 80-100 [facility] [id number] [address] [place] [address] Mean Corpuscular Hemoglobin May 02, 2024 4:04am 30.9 pg 26-34 [facility] [id number] [address] [place] [address] Mean Corpuscular Hemoglobin Concent May 02, 2024 4:04am 32.7 g/dL 32-36 [facility] [id number] [address] [place] [address] Red Cell Distribution Width May 02, 2024 4:04am 11.5 % 11.5-14.5 [facility] [id number] [address] [place] [address]335 Platelet Count May 02, 2024 4:04am 302 k/mm3 150-375 [facility] [id number] [address] [place] [address] 90662 Mean Platelet Volume May 02, 2024 4:04am 10.2 fL 7.4-10.4 [facility] [id number] [address] [place] [address]69 Nucleated Red Blood Cells % May 02, 2024 4:04am 0.0 % 0.0-0.2 [facility] [id number] [address] [place] [address] 28926 Immature Granulocyte % (Auto) May 02, 2024 4:04am 0.4 % 0-0.5 [facility] [id number] [address] [place] [address] Neutrophils (%) (Auto) May 02, 2024 4:04am 85.7 % Above high normal 45.5-73.1 [facility] [id number] [facility] [address] [address] Lymphocytes (%) (Auto) May 02, 2024 4:04am 6.7 % Below low normal 18.3-44.2 [facility] [id number] [address] [place] [address] Monocytes (%) (Auto) May 02, 2024 4:04am 7.0 % 2.6-8.5 [facility] [id number] [address] [place] [address] Eosinophils (%) (Auto) May 02, 2024 4:04am 0.1 % 0-4.4 [facility] [id number] [address] [place] [address] Basophils (%) (Auto) May 02, 2024 4:04am 0.1 % Below low normal 0.2-1.2 [facility] [id number] [address] [place] [address] Nucleated RBC Absolute Count (auto) May 02, 2024 4:04am 0.000 K/mm3 0.0-0.012 [facility] [id number] [address] [place] [address] Absolute Immature Granulocyte (auto May 02, 2024 4:04am 0.05 K/mm3 Above high normal 0.00-0.031 [facility] [id number] [address] [place] [address] Absolute Neutrophils (auto) May 02, 2024 4:04am 11.6 K/mm3 Above high normal 1.3-6.7 [facility] [id number] [address] [place] [address] Lymphocytes # (Auto) May 02, 2024 4:04am 0.90 K/mm3 0.9-3.2 [facility] [id number] [address] [place] [address] Monocytes # (Auto) May 02, 2024 4:04am 1.0 K/mm3 Above high normal 0.1-0.6 [facility] [id number] [address] [place] [address] Eosinophils # (Auto) May 02, 2024 4:04am 0.0 K/mm3 0-0.3 [facility] [id number] [address] [place] [address] Basophils # (Auto) May 02, 2024 4:04am 0.0 K/mm3 0.0-0.1 [facility] [id number] [address] [place] [address] Prothrombin Time April 30, 2024 4:15pm 14.8 s Above high normal 11.1-14.7 [facility] [id number] [facility] [address] [address] Prothromb Time International Ratio April 30, 2024 4:15pm 1.1 INR Indication------ --- ------0.9 - 1.1 Patients not on anticoagulant therapy.2.0 - 3.0 Routine therapy.2.5 - 3.5 Recurrent myocardial infarction or mechanical prosthetic valves. [facility] [id number] [address] [place] [address] Activated Partial Thromboplast Time April 30, 2024 4:15pm 35.9 s 22.3-36.8 [facility] [id number] [address] [place] [address] D-Dimer April 30, 2024 7:40pm 2.24 ug/mL Above high normal <0.48 Fibrinogen Equivalent UnitsLevels below 0.48 ug/ml indicate Negative D-dimer results. [facility] [id number] [address] [place] [address] Urine Color April 30, 2024 9:33pm Yellow Yellow [facility] [id number] [address] [place] [address] Urine Appearance April 30, 2024 9:33pm Clear Clear [facility] [id number] [address] [place] [address] Urine pH April 30, 2024 9:33pm 5.5 5.0-9.0 [facility] [id number] [address] [place] [address] Urine Specific [place] April 30, 2024 9:33pm 1.008 1.001-1.03 5 [facility] [id number] [address] [place] [address] Urine Protein April 30, 2024 9:33pm Negative mg/dL Negative [facility] [id number] [address] [place] [address] Urine Glucose (UA) April 30, 2024 9:33pm Negative mg/dL Negative [facility] [id number] [address] [place] [address] Urine Ketones April 30, 2024 9:33pm Negative mg/dL Negative [facility] [id number] [address] [address] Urine Blood (Manual) April 30, 2024 9:33pm Negative Negative [facility] [id number] [address] [address] Urine Nitrate April 30, 2024 9:33pm Negative Negative [facility] [id number] [address] [address] Urine Bilirubin April 30, 2024 9:33pm Negative [facility] [id number] [address] [address] Urine Urobilinogen April 30, 2024 9:33pm 0.2 mg/dL <2.0 [facility] [id number] [address] [address] Urine Leukocyte Esterase (Reflex) April 30, 2024 9:33pm Negative LUCIA/UL Negative [facility] [id number] [address] [address] Sodium Level May 03, 2024 6:11am 137 mmol/L 137-145 [facility] [id number] [address] [address] Potassium Level May 03, 2024 6:11am 4.0 mmol/L 3.4-5.0 [facility] [id number] [address] [address] Chloride Level May 03, 2024 6:11am 107 mmol/L 98-107 [facility] [id number] [address] [address] Carbon Dioxide Level May 03, 2024 6:11am 26 mmol/L 22-30 [facility] [id number] [address] [address] Anion Gap May 03, 2024 6:11am 4 mmol/L 4-12 [facility] [id number] [address] [address] Blood Urea Nitrogen May 03, 2024 6:11am 34 mg/dL Above high normal 9-20 [facility] [id number] [address] [address] Creatinine May 03, 2024 6:11am 1.50 mg/dL Above high normal 0.7-1.3 [facility] [id number] [address] [address] Estimat Glomerular Filtration Rate May 03, 2024 6:11am 46 Below low normal >59 > OR = 60 ml/min/1.73 square metersThe MDRD formula used to calculate the eGFR result has not been validated in patients > 70 years of age. [facility] [id number] [address] [place], [place] [address] Estimated Creatinine Clearance Calc May 03, 2024 6:11am 43 mL/min For use in prescription drug dose determination only. Reference ranges have not been establishe for this calculation. [facility] [id number] [address] [place] [address] Glucose Level May 03, 2024 6:11am 108 mg/dL 65-110 [facility] [id number] [address] [place] [address] Calcium Level May 03, 2024 6:11am 9.5 mg/dL 8.4-10.2 [facility] [id number] [address] [place] [address] Phosphorus Level May 03, 2024 6:11am 3.2 mg/dL 2.5-4.5 [facility] [id number] [address] [place] [address] Magnesium Level May 02, 2024 4:04am 2.5 mg/dL Above high normal 1.6-2.3 [facility] [id number] [address] [place] [address] Total Bilirubin May 02, 2024 4:04am 0.5 mg/dL 0.2-1.3 [facility] [id number] [address] [place], [place] [address] Aspartate Amino Transf (AST/SGOT) May 02, 2024 4:04am 23 U/L 17-59 [facility] [id number] [address] [place] [address] Alanine Aminotransfera se (ALT/SGPT) May 02, 2024 4:04am 14 U/L 6-50 [facility] [id number] [address] [place], [place] [address] Troponin I April 30, 2024 10:00pm 0.037 ng/mL Above high normal 0.000-0.03 4 Critical test result called with verbal read-back verified at 2312 on 04/30/24 by TRANHI Caregiver KISHAN HAILE, Critical Test Name & Result Given: TNI=0.037 Results and patient identification confirmed by read-back.Critic al test result called with verbal read-back verified at 2313 on 04/30/24 by AUTOINS.Caregive r: Critical test name and result given:Acute myocardial injury is indicated by:1. A troponin value of >0.034 ng/mL and/or2. A 20% change in troponin value.Specimens with biotin concentrations up to 2.5 ng/mL demonstrate a less than or equal to 10% change in results. Biotin concentrations greater than this falsely decrease Troponin results for patient samples. [facility] [id number] [address] [place] [address] FY-Ojs-L-Type Natriuretic Peptide April 30, 2024 4:15pm 7260 pg/mL Above high normal 19.9-100 Reference Range:Normal, Heart Failure unlikely: </= 300 pg/mlHigh Probablility of Heart Failure: <50 Years >/= 450 pg/ml 50-75 Years >/= 900 pg/ml >75 Years >/= 1800 pg/ml [facility] [id number] [address] [place] [address] Total Protein May 02, 2024 4:04am 8.0 g/dL 6.3-8.2 [facility] [id number] [address] [place] [address] Albumin May 03, 2024 6:11am 4.0 g/dL 3.5-5.1 [facility] [id number] [address] [place] [address] Triglycerides Level May 03, 2024 6:11am 87 mg/dL <150 [facility] [id number] [address] [place] [address] Cholesterol Level May 03, 2024 6:11am 165 mg/dL 0-200 [facility] [id number] [address] [place] [address] LDL Cholesterol Direct May 03, 2024 6:11am 86 mg/dL <130 mg/dl Zrultslio295-549 mg/dl Borderline High Risk >160 mg/dl High Risk [facility] [id number] [address] [place] [address] HDL Cholesterol Direct May 03, 2024 6:11am 42 mg/dL Expected Range > 35 mg/dl [facility] [id number] [address] [place] [address] Alkaline Phosphatase May 02, 2024 4:04am 55 U/L 38-126 [facility] [id number] [facility] [place] [address] SARS-CoV-2 RNA (RT-PCR) April 30, 2024 4:15pm Negative Negative This assay is designed to detect the RdRp and N genes of SARS-CoV-2 using nucleic acid amplification. A negative result does not preclude the possibility of 2019-nCoV infection since the adequacy of sample collection and/or low viral burden may result in the presence of viral nucleic acids levels below the analytical sensitivity of this test method. Positive results are indicative of the presence of SARS-CoV-2 RNA and do not rule out bacterial infection or co-infection with other viruses. Test results should be used along with other clinical observations, patient history, epidemiological information and laboratory data in making the diagnosis.This test has received [facility] Emergency Use Authorization and has been verified by [facility]. This test is only authorized for the duration of the declaration and the circumstances that exist to justify the authorization of the emergency use of in vitro diagnostic tests for the detection of SARS-CoV-2 virus and/or diagnosis of COVID-19 infection under section 564(b)(1) of the Act. 11 U.S.C. 360bbb-3(b)(1), unless the authorization is terminated or revoked sooner.[facility] is certified under CLIA-88 as qualified to perform high complexity testing. This testing was performed in the [facility] [place] [address] (CLIA License #[id number], CAP #[id number], AU-ID # [id number]).Factshe et for healthcare providers: https://www.fda. gov/media/761407 /downloadFactshe et for patients: https://www.fda. gov/media/929744 /download [facility] [id number] [facility] [address] [place] [address] Influenza Type B (RT-PCR) April 30, 2024 4:15pm Negative Negative The test is performed on the [employer] GeneXRivalro[employer] Dx System and utilized automated real-time polymerase chain reaction (PCR) to detect presence of the Influenza A and/or Influenza B virus. Positive results are indicative of the presence of the identified virus but cannot rule out bacterial infection or co-infection with other pathogens not detected by the test. Negative should not be used as the sole basis for treatment or other patient management decisions. Negative results must be combined with clinical observations, patient history, and/or epidemiological information. [facility] [id number] [address] [place] [address] Influenza Type A (RT-PCR) April 30, 2024 4:15pm Negative Negative The test is performed on the [employer] GeneXpert Dx System and utilized automated real-time polymerase chain reaction (PCR) to detect presence of the Influenza A and/or Influenza B virus. Positive results are indicative of the presence of the identified virus but cannot rule out bacterial infection or co-infection with other pathogens not detected by the test. Negative should not be used as the sole basis for treatment or other patient management decisions. Negative results must be combined with clinical observations, patient history, and/or epidemiological information. [facility] [id number] [address] [place] [address] Respiratory Syncytial Virus (RT-PCR April 30, 2024 4:15pm Negative Negative The test is performed on the [employer] Dx System and utilized automated real-time polymerase chain reaction (PCR) to detect presence of the RSV virus. Positive results are indicative of the presence of the identified virus but cannot rule out bacterial infection or co-infection with other pathogens not detected by the test. Negative results should not be used as the sole basis for treatment or other patient management decisions. Negative results must be combined with clinical observations, patient history, and/or epidemiological information. [facility] [id number] [address] [place] [address] Pleural Fluid pH May 01, 2024 4:41pm > 7.500 Above high normal 7.210-7.50 0 [facility] [id number] [address] [place] [address] Pleural Fluid Source May 01, 2024 4:41pm Pleural fluid [facility] [id number] [address] [place] [address] Pleural Fluid Appearance May 01, 2024 4:41pm Cloudy Clear [facility] [id number] [address] [place] [address] Pleural Fluid Color May 01, 2024 4:41pm Yellow Colorless [facility] [id number] [address] [place] [address] Pleural Fluid Nucleated Cells May 01, 2024 4:41pm TNP Test not performedSpecime n clotted - Unable to perform cell count;Differenti al performed only. [facility] [id number] [address] [place] [address] Pleural Fluid RBC May 01, 2024 4:41pm TNP Test not performedSpecime n clotted - Unable to perform cell count;Differenti al performed only. [facility] [id number] [address] [place] [address] Pleural Fluid Neutrophils May 01, 2024 4:41pm 24 % 0-25 [facility] [id number] [address] [place] [address] Pleural Fluid Lymphocytes May 01, 2024 4:41pm 45 % [facility] [id number] [address] [place] [address] Pleural Fluid Monocytes May 01, 2024 4:41pm 6 % [facility] [id number] [address] [place] [address] Pleural Fluid Macrophages May 01, 2024 4:41pm 20 % [facility] [id number] [address] [place], [place] [address] Pleural Fluid Mesothelial Cells May 01, 2024 4:41pm 4 % [facility] [id number] [address] [place] [address] Pleural Fluid Other Cells May 01, 2024 4:41pm 1 % 1 - EOSINOPHIL [facility] [id number] [address] [place], [place] [address] Nasal MRSA (PCR) May 03, 2024 5:01am Not detected NOT DETECTE The MRSA Real-Time PCR test is not intended to diagnose, guide, or monitor MRSA infections. Concomitant cultures are necessary to recover organisms for epidemiological typing or for further susceptibility testing. [facility] [id number] [address] [place] [address] Diagnostic Imaging Reports Author Suman Enamorado [facility] Report Date/Time April 30, 2024 4:35pm [id number] XRay Report Signed Patient: Rigo Caballero : 1945 MR#: [id number] Age: 78 Acct:[id number] Loc: [facility] ADM Date: 04/30/[address]: Ordering Physician: Giovanna Tello PA-C Date of Service: 04/30/24 Procedure(s): XR chest 2V Accession Number(s): [id number] cc: Giovanna Tello PA-C; UNKNOWN,DOCTOR~ EXAMINATION: XR chest 2V DATE: 04/30/2024 16:33 INDICATION: Soreness of breath TECHNIQUE: PA and lateral views of the chest were obtained. COMPARISON: None FINDINGS: Opacities at the right lower lung zone consistent with a small to moderate- sizedright pleural effusion with associated atelectasis and/or pneumonia. Left lung is clear. No pneumothorax or left-sided pleural effusion. Heart size is normal. Mild thoracic spondylosis with mild anterior wedging of a couple lower thoracic vertebral bodies. IMPRESSION: 1. Opacities in the right lower lung zone consistent with unilateral small to moderate-sized right pleural effusion and associated atelectasis and/or pneumonia. Reviewed, dictated and finalized at location B. PER SETTER Dictated By: Suman Enamorado MD 04/30/24 1634 Signed By: <Electronically signed by Suman Enamorado MD in OV> 04/30/24 1635 Author [facility] Report Date/Time April 30, 2024 9:15pm [address] [place] [address] CT Scan Report Signed Patient: Rigo Caballero : 1945 MR#: [id number] Age: 78 Acct:[id number] Loc: [facility] ADM Date: 04/30/[address]: Ordering Physician: Shanta Lema PA-C Date of Service: 04/30/24 Procedure(s): CTA chest PE protocol Accession Number(s): [id number] cc: Shanta Lema PA-C; UNKNOWN,DOCTOR~ EXAMINATION: CTA chest PE protocol DATE: 04/30/2024 21:09 INDICATION: Dyspnea. TECHNIQUE: Computed tomography angiography (CTA) of the chest was performed [id number] mL Omnipaque-350 intravenous contrast timed to evaluate the pulmonary arteries. Coronal maximum intensity projection 3D-reconstructions were created by the technologist. Automated exposure control and iterative reconstruction technique were employed. The dose-length product was 712.76 mGy-cm. COMPARISON: Chest 2 views 04/30/2024 FINDINGS: There are moderate-sized right and small left pleural effusions. Thereis septal thickening in the lungs, consistent with mild pulmonary edema. There are patchy airspace opacities in left upper lobe. There is passive atelectasis in right middle lobe and right lower lobe. Cardiomegaly is noted. There are coronary artery calcifications. There are calcifications of the aortic valve. Nopericardial effusion. There is severe atrophy of left kidney. Partially visualized is left hydronephrosis. There is no pulmonary embolus. There is mild mediastinal lymphadenopathy, likely reactive. There are bridging endplate osteophytes at multiple levels in the spine, consistent with diffuse idiopathic skeletal hyperostosis (DISH). There is mild chronic anterior wedging of multiplevertebral bodies. IMPRESSION: 1. Mild pulmonary edema. 2. Mild airspace opacities in left lung upper lobe, consistent with pulmonary edema versus pneumonia. 3. Moderate-sized right and small left pleural effusions. 4. No pulmonary embolus. Sensitivity is moderately decreased by motion artifact. 5. Partially visualized severe atrophy of left kidney. Left hydronephrosis. Reviewed, dictated and finalized at location A. PER SETTER Dictated By: Petros Patel MD 04/30/242110 Signed By: <Electronically signed by Petros Patel MD in OV> 04/30/242114 Author Petros Patel [facility] Report Date/Time May 01, 2024 3:07pm [address] [address] [place] Scan Report Signed Patient: Rigo Caballero : 1945 MR#: [id number] Age: 78 Acct:[id number] Loc: ANHIMU 206-01 ADM Date: 04/30/[address]: Hermelinda Babcock M.D. Ordering Physician: Solomon Gallo MD Date of Service: 05/01/24 Procedure(s): CT abdomen pelvis wo con Accession Number(s): [id number] cc: Hermelinda Babcock MD; Solomon Gallo MD; UNKNOWN,DOCTOR~ EXAMINATION: CT abdomen pelvis wo con DATE: 05/01/2024 14:56 INDICATION: Hydronephrosis. TECHNIQUE: Computed tomography (CT) of the abdomen and pelvis was performed without intravenous contrast. Automated exposure control and iterative reconstruction technique were employed. The dose-length product was 662.03 mGy-cm. COMPARISON: Chest CT 04/28/2024 FINDINGS: The visualized portions of lung bases demonstrate moderate-sized rightand small left pleural effusions. There are airspace opacities in right middle lobe, right lower lobe, and left lower lobe, likely atelectasis. Calcified rightlung nodules are consistent with old granulomatous disease. Cardiomegaly is noted. There are coronary artery calcifications. There are calcifications of theaortic valve. No pericardial effusion. There is mild bilateral gynecomastia. Theliver and spleen are normal. There is contrast in the gallbladder, which is normal in size. The pancreas, adrenal glands, and right kidney are normal. Thereis severe atrophy of left kidney. The prostate is moderately enlarged. There is a left inguinal hernia containing fat. There is diverticulosis of the colon without evidence of diverticulitis. There are no dilated loops of bowel. The appendix is normal. There are no pathologically enlarged lymph nodes. There is no free intraperitoneal fluid. There is calcified atherosclerosis of the aorta and many of the other arteries. There are surgical clips in left pelvis. There are bridging endplate osteophytes at multiple levels in the spine, consistent with diffuse idiopathic skeletal hyperostosis (DISH). There is severe lumbar spondylosis. IMPRESSION: 1. Moderate-sized right and small left pleural effusions. 2. Severe atrophy of left kidney. No hydronephrosis. Reviewed, dictated and finalized at location A. PER SETTER Dictated By: Petros Patel MD 05/01/24 1504 Signed By: <Electronically signed by Petros Patel MD in OV> 05/01/24 1507 Author Petros Patel [facility] Report Date/Time May 01, 2024 4:48pm [facility] [address] [place], [place] [address] XRay Report Signed Patient: Rigo Caballero : 1945 MR#: [id number] Age: 78 Acct:[id number] Loc: ANHIMU 206-01 ADM Date: 04/30/[address]: Hermelinda Babcock M.D. Ordering Physician: Hermelinda Babcock MD Date of Service: 05/01/24 Procedure(s): XR chest 1V post thora Accession Number(s): [id number] cc: Hermelinda Babcock MD; UNKNOWN,DOCTOR~ EXAMINATION: [id number] DATE: 05/01/2024 16:38 INDICATION: Right pleural effusion status post thoracentesis. TECHNIQUE: A single frontal view of the chest was obtained. COMPARISON: Chest 2 views 04/30/2024, chest CT 04/30/2024 FINDINGS: There is a moderate-sized right pleural effusion. There are airspace opacities at right lung base. No pneumothorax. Cardiomegaly is noted. IMPRESSION: 1. Moderate-sized right pleural effusion with improvement status post thoracentesis. 2. Cardiomegaly. Reviewed, dictated and finalized at location A. PER SETTER Dictated By: Petros Patel MD 05/01/24 1646 Signed By: <Electronically signed by Petros Patel MD in OV> 05/01/248 Author Erica Wright [facility] Report Date/Time May 01, 2024 5:34pm [facility] [address] [place] [address] Ultrasound Report Signed Patient: Rigo Caballero : 1945 MR#: [id number] Age: 78 Acct:[id number] Loc: ANHIMU 206-01 ADM Date: 04/30/[address]: Hermelinda Babcock M.D. Ordering Physician: Hermelinda Babcock MD Date of Service: 05/01/24 Procedure(s): US thoracentesis w imaging Accession Number(s): [id number] cc: Hermelinda Babcock MD; UNKNOWN,DOCTOR~ EXAMINATION: US thoracentesis DATE: 05/01/2024 16:46 INDICATION: pleural effusion TECHNIQUE: The procedure and its risks, benefits, and alternatives were discussed with the patient. Potential risks discussed included bleeding, infection, and pneumothorax. The patient understood the risks and agreed to proceed. A timeout was then performed as per protocol. The skin was prepped and draped in sterile fashion. 1% lidocaine was used for local anesthesia. Under ultrasound guidance, a 5 Fr catheter with trocar was advanced into the right pleural effusion, and the trocar needle removed. The catheter was then attached to vacuum suction after a specimen was obtained. The pleural effusion was evacuated nearly in its entirety. The catheter was then removed, and a sterile dressing was applied. There were no immediate complications. FINDINGS: Ultrasound images demonstrate a large right-sided pleural effusion and the catheter within the fluid. IMPRESSION: 1. Successful ultrasound-guided thoracentesis yielding 1900 mL of thin yellow fluid. Reviewed, dictated and finalized at location A. PER SETTER Dictated By: Erica Wright MD 05/01/24 1731 Signed By: <Electronically signed by Erica Wright MD in OV> 05/01/24 173 Author Petros Patel [facility] Report Date/Time May 02, 2024 3:17pm [facility] [address] [place], [place] [address] Ultrasound Report Signed Patient: Rigo Caballero : 1945 MR#: [id number] Age: 78 Acct:[id number] Loc: ANHIMU 206-01 ADM Date: 04/30/[address]: Hermelinda Babcock M.D. Ordering Physician: Oren Moreno MD Date of Service: 05/02/24 Procedure(s): US venous doppler LE Accession Number(s): [id number] cc: Hermelinda Babcock MD; Oren Moreno MD; UNKNOWN,DOCTOR~ EXAMINATION: US venous doppler LE DATE: 05/02/2024 15:16 INDICATION: Dyspnea. Positive d-dimer. TECHNIQUE: Grayscale ultrasound images without and with compression and Doppler ultrasound images of the bilateral lower extremity veins were obtained. COMPARISON: None. FINDINGS: The visualized portions of right common femoral vein, profunda (deep) femoral vein, femoral vein, popliteal vein, peroneal veins, posterior tibial veins, and greater saphenous vein outflow are patent. The visualized portions of left common femoral vein, profunda femoral vein, femoral vein, popliteal vein, peroneal veins, posterior tibial veins, and greater saphenous vein outflow are patent. IMPRESSION: 1. No deep venous thrombosis. Reviewed, dictated and finalized at location A. PER SETTER Dictated By: Petros Patel MD 05/02/24 1516 Signed By: <Electronically signed by Petros Patle MD in OV> 05/02/24 1517 Pathology Reports Author Marcio Mtz [facility] Report Date/Time May 03, 2024 10:06am Name: Rigo Caballero Spec Num: [id number] : 1945 MR#: [id number] Age: 78 Acct: [id number] Location: [id number] Specimen Date: 05/01/24 Provider: Solomon Gallo MD Receive Date: 05/02/24 Copies to:Solomon Gallo MD;UNKNOWN,DOCTOR;~ ___ Final Diagnosis Right pleural fluid, cytology and cell block: - Reactive mesothelial cells - Scattered inflammatory cells - Negative for malignancy. Reviewed and Electronically Signed by: Marcio Mtz MD 05/03/24 1006 Gross Description Received fresh in a container labeled with the patient's identification and ???THORACENTESIS??? are 950mL of WOODS YELLOW CLOUDY fluid. A hvac sales representative volume is sent for cytologic processing. [facility] Cardiology Reports Author [facility] Report Date/Time April 30, 2024 4:22pm [place] [address] [facility] [address] [place], [place] [address] Electrocardiograph Report Signed Patient: Rigo Caballero : 1945 MR#: [id number] Age: 78 Acct:[id number] Loc: ANHED ADM Date: 04/30/[address]: Ordering Physician: Giovanna Tello PA-C Date of Service: 04/30/24 Procedure(s): CA 12 lead EKG Accession Number(s): [id number] cc: ~ Test Date: 2024-04-30 16:13:31 Measurements Intervals [place] Rate: 83 P: 38 MS: 149 QRS: 37 QRSD: 106 T: 90 QT: 396 QTc: 467 Interpretive Statements SINUS RHYTHM WITH OCCASIONAL VENTRICULAR PREMATURE COMPLEXES POSSIBLE LEFT ATRIAL ENLARGEMENT CONSIDER ANTERIOR INFARCT, AGE INDETERMINATE BORDERLINE ST-T WAVE ABNORMALITY- INF/LAT LEADS BASELINE ARTIFACT- I, II, III, AVR, AVL, AVF, V1-V6 ABNORMAL ECG No previous ECG available for comparison Electronically Signed On 04-30-2024 16:21:51 STOPPER SETTER by Theodore Mo D.O. Dictated By: Theodore Mo DO 04/30/24 1613 Signed By: <Electronically signed by Theodore Mo DO in OV> 04/30/24 1622 Author Theodore Chepe [facility] Report Date/Time May 01, 2024 6:01am [place] [id number] Electrocardiograph Report Signed Patient: Rigo Caballero : 1945 MR#: [id number] Age: 78 Acct:[id number] Loc: [facility] ADM Date: 04/30/[address]: Hermelinda Babcock M.D. Ordering Physician: Reggie Escobar MD Date of Service: 04/30/24 Procedure(s): CA 12 lead EKG Accession Number(s): [id number] cc: ~ Test Date: 2024-04-30 19:52:57 Measurements Intervals [place] Rate: 88 P: 24 MS: 155 QRS: 38 QRSD: 102 T: 65 QT: 387 QTc: 471 Interpretive Statements SINUS RHYTHM POSSIBLE LEFT ATRIAL ENLARGEMENT BORDERLINE R WAVE PROGRESSION, ANTERIOR LEADS NONSPECIFIC ST & T-WAVE ABNORMALITY- INF/HIGH LAT LEADS BASELINE ARTIFACT- I, II, III, AVL, AVF, V2-V6 BORDERLINE ECG Compared to ECG 04/30/2024 16:13:31 NO SIGNIFICANT CHANGE Electronically Signed On 05-01-2024 06:00:50 STOPPER SETTER by Theodore Mo D.O. Dictated By: Theodore Mo DO 04/30/241951 Signed By: <Electronically signed by Theodore Mo DO in OV> 05/01/24 0601 Author [facility] Report Date/Time May 02, 2024 5:30pm [address] [id number] ECHO Signed Patient: Rigo Caballero : 1945 MR#: [id number] Age: 78 Acct:[id number] Loc: ANWYMU - ADM Date: 05/02/[address]: Hermelinda Babcock M.D. Ordering Physician: Hermelinda Babcock MD Date of Service: 05/01/24 Procedure(s): CA echo dop color flow w con Accession Number(s): [id number] cc: Hermelinda Babcock MD; UNKNOWN,DOCTOR~ Patient Info Name: Rigo Caballero Age: 78 years : 1945 Gender: Male Ht: 73 in Wt: 212 lbs BSA: 2.24 m2 HR: 94 bpm BP: 147 / 77 mmHg Technical Quality: Poor Exam Date: 05/01/2024 10:11 AM Exam Location: Echo Lab Patient Status: Inpatient Admit Date: 04/30/2024 Staff Ordering Physician: Hermelinda Babcock MD Attending Provider: Hermelinda Babcock MD Referring Physician: Sadiq LINARES; Exam Type: CA echo dop color flow w con Study Info Indications - ELEVATED BNP Complete two-dimensional, color flow and Doppler transthoracic echocardiogram is performed with contrast to opacify the left ventricle and to improve the deliniation of the left ventricle endocardial borders. Contrast/Agitated Saline Contrast/Ag. Saline: Definity Amount: 2.00 ml Existing IV Access: Yes Reason for Poor Study: poor echocardiographic windows Summary 1. Dilated inferior vena cava with <50% collapse upon inspiration consistent with elevated right atrial pressure, 15 mmHg. 2. Left ventricular chamber dimension is enlarged. 3. Left ventricular wall thickness is severely increased. 4. Left ventricular systolic function is mildly reduced with an estimated ejection fraction of 45-50 %. 5. There is moderate aortic valve stenosis with a peak velocity of 321.73 cm/s, mean gradient of 31 mmHg, and aortic valve area of 1.15 cm2. SVI undefinedRundefined 35. DON by planimetry 1.2. 6. There is severe aortic valve calcification. 7. There is mild mitral valve regurgitation. 8. Left atrial chamber dimension is enlarged. Recommendations * Cardiology Consult. Left Ventricle Left ventricular chamber dimension is enlarged. Left ventricular wall thickness is severely increased. Left ventricular systolic function is mildly reduced with an estimated ejection fraction of 45-50 %. Right Ventricle Right ventricular chamber dimension is normal. Right ventricular systolic function is normal. Left Atria Left atrial chamber dimension is enlarged. Aortic Valve There is severe aortic valve calcification. There is moderate aortic valve stenosis with a peak velocity of 321.73 cm/s, mean gradient of 31 mmHg, and aortic valve area of 1.15 cm2. SVI undefinedRundefined 35. DON by planimetry 1.2. There is no aortic valve regurgitation. Pulmonic Valve Pulmonary valve is not well visualized. Mitral Valve There is mild mitral valve regurgitation. Tricuspid Valve There is no tricuspid valve regurgitation. Pulmonary pressures cannot be estimated due to no TR jet. Inferior Vena Cava Dilated inferior vena cava with <50% collapse upon inspiration consistent with elevated right atrial pressure, 15 mmHg. 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 Left Ventricular Outflow Tract Name Value Normal LVOT 2D LVOT Diameter 2.40 cm LVOT Doppler LVOT Peak Gradient 3 mmHg LVOT Mean Gradient 2 mmHg LVOT VTI 17.10 cm LVOT VTI/AV VTI Ratio 0.26 LVOT Stroke Volume 76.98 ml LVOT CO 6.74 l/min LVOT CI 3.01 L/min/m2 Pulmonic Valve Name Value Normal RVOT Doppler RVOT Peak Gradient 3 mmHg PV Doppler PV Peak Gradient 2 mmHg Mitral Valve Name Value Normal MV Doppler MV Peak Gradient 10 mmHg MV Mean Gradient 4 mmHg MV Decel Noble 1,502.53 cm/s2 MV PHT 0 s MV Area (PHT) 9.09 cm2 4.00-5.00 MV Area (Cont Eq VTI) 2.26 cm2 MV Diastolic Function MV E Peak Velocity 125.43 cm/s MV A Peak Velocity 84.09 cm/s MV E/A 1.49 MV Decel Time 0 s MV Annular TDI MV E/e' (Septal) 25.30 <=8.00 MV E/e' (Lateral) 20.44 <=8.00 MV E/e' (Average) 22.87 Tricuspid Valve Name Value Normal Estimated PAP/RSVP RA Pressure 15 mmHg <=5 Aorta Name Value Normal Ascending Aorta Ao Root Diameter (MM) 4.58 cm Ao Root Diam Index (MM) 2.04 cm/m2 Aortic Valve Name Value Normal AV Doppler AV Peak Velocity 321.73 cm/s AV Peak Gradient 0 mmHg AV Mean Gradient 31 mmHg AV VTI 66.70 cm AV Area (Cont Eq VTI) 1.15 cm2 >=3.00 AV Area (Cont Eq Prateek) 1.26 cm2 AV Regurgitation 2D LVOT Area 4.50 cm2 Ventricles Name Value Normal LV Dimensions 2D/MM IVS Diastolic Thickness (2D) 1.67 cm 0.60-1.00 LVID Diastole (2D) 5.68 cm 4.20-5.80 LVIW Diastolic Thickness (2D) 1.71 cm 0.60-1.00 LVID Systole (2D) 4.23 cm 2.50-4.00 LVOT Diameter 2.40 cm LV Mass (2D Cubed) 465.05 g 88.00-224.00 LV Mass Index (2D Cubed) 0.02 g/cm2 0.00-0.01 Relative Wall Thickness (2D) 0.60 LV Fractional Shortening/Ejection Fraction 2D/MM LV Fractional Shortening (2D) 27 % 25-43 LV EF (2D Teicholz) 52 % 52-72 LV Diastolic Volume (4C MOD) 168.78 ml LV EF (4C MOD) 45 % LV Diastolic Volume (2C MOD) 158.36 ml LV EF (2C MOD) 55 % LV Diastolic Volume (BP MOD) 170.41 ml 62.00-150.00 LV Diastolic Volume Index (BP MOD) 0.08 l/m2 0.03-0.07 LV Systolic Volume (BP MOD) 83.50 ml 21.00-61.00 LV Systolic Volume Index (BP MOD) 0.04 l/m2 0.01-0.03 LV EF (BP MOD) 51 % 52-72 LV Diastolic Length (4C) 9.49 cm LV Systolic Length (4C) 8.32 cm LV Stroke Volume (4C MOD) 75.92 ml Atria Name Value Normal LA Dimensions LA Dimension (MM) 4.86 cm 3.00-4.10 LA Volume (4C A-L) 59.65 ml LA Volume (BP A-L) 86.39 ml Report Signatures Dictated By: Karissa Lopez MD 05/01/24 1011 Signed By: 05/02/24 9286 Vital Signs Vital Reading Result Reference Range Collection Date/Time Height 73.5 [in_i] April 30, 2024 11:01pm Weight 96.00 kg May 04, 2024 6:00am Body Temperature 98.4 [degF] 97.6-99.6 May 042023 2:14pm Heart Rate 81 /min 60-100 May 04, 2024 2:14pm Respiratory rate 18 /min 12-20 May 042023 2:14pm Oxygen saturation by Pulse oximetry 95 % 90-100 May 04, 2024 2:14pm BP Systolic 133 mm[Hg] 100-140 May 04, 2024 2:14pm BP Diastolic 67 mm[Hg] 60-90 May 04, 2024 2:14pm BMI (Body Mass Index) 27.6 kg/m2 [facility] 2023 11:01pm Inhaled oxygen concentration 21 % May 02, 2024 8:00pm Advance Directives Advance Directive Response Recorded Date/ Time Current Advance Directive No [facility] [place] er 2023 10:40pm Insurance Providers Guarantor Rigo Caballero Address [address] [place] [address] Contact Info. Home Phone: Payer Policy Id Coverage Id Subscriber's Name Subscriber Id Effective Date Expiration Date Medicare Part A Only [id number] Rigo Caballero [id number] [employer] [id number] Rigo Caballero [id number] [facility] Office of Community Care [id number] Rigo Caballero [id number] Encounters Encounter Location(s) Arrival/Admit Date Discharge/Depart Date Provider(s) Discharged [place] [address] Medical May 02, 2024 4:11pm May 04, 2024 3:55pm Hermelinda Stoner MD Recent Diagnosis Onset Date Admit Date COPD (chronic obstructive pulmonary disease) Unk nown May 02, 2024 4:11pm Elevated troponin Unknown May 02, 2024 4:11pm New onset of congestive heart failure Unknown May 02, 2024 4:11pm Pleural effusion Unknown May 02, 2024 4:11pm Pneumonia Unknown May 02, 2 024 4:11pm Tobacco dependence Unknown April 4:11pm Functional Status Observation Response Date Recorded Functional capacity on discharge independent amb ulation May 04, 2024 2:44pm Mental Status Observation Response Date Recorded patient oriented x3 Yes April 2:29pm Assessments Diagnosis Onset Date Resolution Status Admit Date COPD (chronic obstructive pulmonary disease) acute April 4:11pm Elevated troponin acute Novembe r 2023 4:11pm New onset of congestive hear t failure acute May 02, 2 024 4:11pm Pleural effusion acute May 02, 2024 4:11pm Pneumonia acute May 02, 2024 4:11pm Tobacco dependence acute Novemb er 2023 4:11pm Plan of Treatment Future Tests Future scheduled test information is unavailable Pending Tests Test Name Ordered Date Scheduled Date Pleural Fluid Total Protein May 01, 2024 4:41pm Pleural Fluid Albumin May 01, 2024 4:41pm Pleural Fluid LDH May 01, 2024 4:41pm Pleural Fluid Glucose May 01, 2024 4:41pm Pleural Fluid Adenosine Deaminase May 01, 2024 4:41pm Future Visits Future appointment information is unavailable Referrals to Other Providers Reason for Referral Referral Start Date Provider Provider Contact Information Provider Address Megan SherwoodKiera Tucker , DO Work Phone: [facility] [address] [place] [address] [address] [place] [address] [place] [id number] Future Procedures Procedure Name Ordered Date Scheduled Date Body Fluid Cul(Aero/Anaero/Gm) May 02 7:48am May 02, 2024 7:49am Discharge Order May 04, 2024 2:44pm Novem 2023 2:44pm Placement to Observation April 30, 2024 9:5 0pm April 30, 2024 9:50pm Change Status to Inpatient May 02, 2024 4 :10pm May 02, 2024 4:11pm OT Discharge Clarification May 03, 2024 1 2:02pm May 03, 2024 12:02pm PT Discharge Clarification May 03, 2024 2 :35pm May 03, 2024 2:35pm Consult to Physician May 02, 2024 7:46pm May 02, 2024 7:46pm Future Medications Future medication information is unavailable Patient Instructions Instruction Admit Date Antibiotic Form Heart Failure (DC) Pain Management (DC) High Troponin Levels (GEN) May 02, 2024 4:11pm Goals Acute Goals Author Authored Date Verbalizes/Demonstrates Unde rstanding *Demonstrates understanding of teaching [facility] May 04, 2024 3:58pm Participate in Discharge Ana nning In order to achieve this outcome, the patient/ and or family will: * assist in identification of DME needs * assist in identification of community resource needs * assist in identification of appropriate discharge destination [facility] May 04, 2024 3:58pm Develop pain management prog shari In order to achieve this outcome the patient will: * Use the pain scale appropriately * Identify options for pain control - Analgesics - Narcotics - Non-medication measures [facility] May 04, 2024 3:58pm Increase knowledge regarding pain mgmt *Demonstrates understanding of teaching [facility] May 04, 2024 12:45am Maintain an effective breath ing pattern * Maintains a patent airway * Maintains vital signs WNL * Maintains optimal breath sounds [facility] May 04, 2024 3:58pm Improved infection * Maintains vital signs WNL * Evidences no purulent drainage from wounds, incisions, and tubes * Maintains optimal lab values [facility] May 04, 2024 3:58pm Adequate cardiac output *Maintains vital signs WNL *Maintains adequate urine output [facility] May 04, 2024 3:58pm Adapt to partial or total vi ti loss * Uses corrective lenses * Performs ADL's * Uses safety measures [facility] May 04, 2024 3:58pm Remain free of injury *Follows Safety Interventions [facility] May 04, 2024 3:58pm Hospital Discharge Instructions Additional Instructions please f/u with cardiology. call and get an darlin. If you experience chest pain /shortness of breath- please report to er. Monitor your weight, first thing in am, and keep log. Monitor leg swelling. Increased leg swelling, weight gain and shortness of breath may indicate heart failure exacerbation. Cardiology started you on aspirin 81 mg once daily, atorvastatin 40 mg once daily and metoprolol succinate 25 mg once daily. I will sent a script for SGLT-2, Jardiance 10 mg. all of these medications are part of heart failure regimen. you will have two antibiotics to take: augmentin-take 1 tab twice a day, am and pm, for total of 6 doses. Doxycycline 1 tab twice a day, you have 2 more doses left. Consultation Note Author [facility] Note Date/Time May 03, 2024 11:[address] [place] [address] [address] [place] [address] Cardiology Consult Note Signed Patient: Rigo Caballero MR#: [id number] : 1945 Acct:[id number] Age: 78 ADM Date: 05/02/24 Loc: [id number]: Hermelinda Babcock M.D. cc: Hermelinda Babcock MD; Shanta Lema PA-C; UNKNOWN,DOCTOR~ Assessment and Plan Assessment and plan (1) New onset of congestive heart failure: Code(s): I50.9 - Heart failure, unspecified Status: Acute (2) Elevated troponin: Code(s): R79.89 - Other specified abnormal findings of blood chemistry Status: Acute Plan 1. Type 2 PA 2. Moderate aortic Stenosis Vmax 322, MG 31, DON 1.15 (continuity), DON 1.2 (planimetry, SVi 35 3. Systolic heart Failure NYHA II, Stage C EF 45-50% Etiology: not knonw yet 4. COPD 5. PNA 6. R Pleural Effusion s/p thoracentesis, cytology pending 7. SHERRI 8. Chromic smoker - it is my clinical impression that most likely has underlying coronary artery disease and with his presentation with COPD exacerbation, pneumonia, mod he had manifested as a rise in troponin - he will need a cardiac catheterization to delineate his coronary anatomy. however I think would be appropriate to do it as an outpatient after the renal function has improved and also we are aware as to the etiology of the right-sided pleural effusion - he also has moderate aortic stenosis for which he will need echo every 6 months - will start him on aspirin 81 mg once daily, who atorvastatin 40 mg once daily and metoprolol succinate 25 mg once daily - he will need guideline directed medical therapy for heart failure; ALEXANDER/ARB/ARNI, MRA and SGLT2. His medications can be optimized as an outpatient thank you for allowing me to partake in the care of this pleasant gentleman. please call me with any questions or concerns History of Present Illness History of Present Illness Consult date/time: 05/03/24 11:00 Reason For Visit: New onset CHF, Pneumonia Narrative: Mr Rigo Caballero is a 78-year-old pleasant gentleman was admitted with right upper lobe pneumonia, right pleural effusion status post thoracentesis, congestive heart failure, COPD with exacerbation. His troponins were found to be elevated but had a flat biomarker profile. He underwent right-sided thoracentesis cytology is pending for his pleural effusion. Cardiology consulted because the echo showed an EF of 45-50% and moderate . [employer] S times has noticed worsening dyspnea on exertion for the past severalmonths. Is occasional chest heaviness as well He denies any dizziness, lightheadedness, syncope Currently denies any chest pain EKG shows normal sinus rhythm, poor R-wave progression in precordial leads - echo shows an EF of 45-50%, moderate aortic stenosis: MG 31 mmHg, and aortic valve area of 1.15 cm2. SVI 35, Don by planimetry 1.2. Review of Systems Review of Systems: Persistent productive cough of white thick sputum, shortness of breath. All systems reviewed & are unremarkable except as noted in HPI and below [facility] Family History Family History (Updated 04/30/24 @ 22:56 by Rain Casillas RN) Father Acute myocardial infarction Hypertension Sibling Acute myocardial infarction Social History Social History Smoking status: Former smoker Alcohol intake: current Drinks per week: 5 Substance use type: does not use Do You Feel Safe in your Home?: Yes Lack of Transportation: No Lack of Food: Never True Current Housing: I Have Housing Concerned About Future Housing: No Difficulty Paying Gas/Electric Bills: No Difficulty Paying for Meds: No Currently Unemployed: No Education: High School Diploma/GED Difficulty w/ Childcare or Family Care: No Spiritual care concerns: No Meds Home Medications and Allergies Home Medications Medication Instructions Recorded Confirmed Type No Home Medications 04/30/24 04/30/24 History Allergies Allergy/AdvReac Type Severity Reaction Status Date / Time No Known Allergies Allergy Verified 04/30/24 14:34 Vital Signs Vital Signs - 24 hr 05/02/24 11:25 05/02/24 12:00 05/02/24 12:00 Temperature 36.6 C Pulse Rate 86 98 Respiratory Rate 20 Blood Pressure 147/90 H Pulse Oximetry 96 Oxygen Delivery Room Air Fraction of Inspired Oxygen 05/02/24 12:42 05/02/24 12:51 05/02/24 15:37 Temperature 36.7 C Pulse Rate 86 92 89 Respiratory Rate 18 18 20 Blood Pressure 137/87 Pulse Oximetry 99 Oxygen Delivery Fraction of Inspired Oxygen 05/02/24 14:00 05/02/24 16:00 05/02/24 16:00 Temperature Pulse Rate 86 85 Respiratory Rate Blood Pressure Pulse Oximetry Oxygen Delivery Room Air Fraction of Inspired Oxygen 05/02/24 18:00 05/02/24 20:00 05/02/24 20:16 Temperature 36.5 C Pulse Rate 85 91 96 Respiratory Rate 20 18 Blood Pressure 140/86 Pulse Oximetry 96 Oxygen Delivery Fraction of Inspired Oxygen 05/02/24 20:16 05/02/24 20:26 05/02/24 20:00 Temperature Pulse Rate 92 92 Respiratory Rate 18 18 Blood Pressure Pulse Oximetry 94 94 Oxygen Delivery Room Air Room Air Fraction of Inspired Oxygen 21 05/03/24 02:20 05/03/24 02:30 05/03/24 05:03 Temperature Pulse Rate 88 84 91 Respiratory Rate 18 18 Blood Pressure Pulse Oximetry Oxygen Delivery Fraction of Inspired Oxygen 05/03/24 06:21 05/03/24 09:02 05/03/24 09:02 Temperature 36.6 C Pulse Rate 87 93 Respiratory Rate 16 20 Blood Pressure 165/95 H Pulse Oximetry 95 95 Oxygen Delivery Room Air Fraction of Inspired Oxygen 05/03/24 09:11 05/03/24 08:15 05/03/24 08:15 Temperature Pulse Rate 86 94 Respiratory Rate 20 Blood Pressure Pulse Oximetry Oxygen Delivery Room Air Fraction of Inspired Oxygen Exam Narrative: AF 97.8 147/90 92 18 96% ra Gen - NARD Chest - decreased BS in the right base with crackles mid and lower lung field; no wheezing CV - RRR S1/S2. No JVD. Tele showing NSR with one episode of probably atrial tachycardia. Abd - Soft, NT/ND, Positive BS Ext - No pedal edema Neuro - Alert and oriented. Nonfocal exam. Psych - Nml mood and affect Skin - Warm and dry Const: General: cooperative, comfortable, no acute distress, well developed, alert, awake, ill appearing chronically and average body habitus Nutritional Appearance: average body habitus Orientation/consciousness: patient oriented x3 Other: on supplemental oxygen by nasal can HENMT: Head: normal to inspection, normocephalic and atraumatic Ears: hearing grossly normal bilaterally Face/Nose/Sinus: normal facial exam Face and sinus: normal facial exam Eyes: General: appearance normal, both eyes and all related structures Pupils: Equal, round and reactive pupils present EOM: EOMs intact bilaterally Neck: Neck: full ROM, no lymphadenopathy and no JVD Thyroid: thyroid normal Lymphatic: no lymphadenopathy noted Resp: Effort & Inspection: normal respiratory effort and able to speak in complete sentences Auscultation: crackles, rales and diminished lung sounds Cardio: Jugular venous distension: no JVD Rate: regular rate Rhythm: regular rhythm Heart sounds: S1 normal heart sound present and S2 normal heart sound present : General: Yes deferred Skin: Rashes: no rashes Wounds: no wounds Neuro: General: patient oriented x3, CN's II-XI intact bilaterally and Unable to assess gait Cranial nerves: Yes CN's II-XII intact bilaterally and Yes Equal, round and reactive pupils present Cognition (Neuro): normal cognition Speech: normal speech Gait exam (Neuro): Unable to assess gait Motor exam (neuro): 5/5 motor strength present throughout Extrem: General: normal to inspection, full ROM, no joint enlargement and no pedal edema Results Labs and Meds 05/02/24 04:04 05/03/24 06:11 Lab results: Lipids 05/03/24 Range/Units 06:11 Triglycerides 87 (<150) mg/dL Cholesterol 165 (0-200) mg/dL Comprehensive Metabolic Panel 05/03/24 Range/Units 06:11 Sodium 137 (137-145) mmol/L Potassium 4.0 (3.4-5.0) mmol/L Chloride 107 (98-107) mmol/L Carbon Dioxide 26 (22-30) mmol/L BUN 34 H (9-20) mg/dL Creatinine 1.50 H (0.7-1.3) mg/dL Glucose 108 (65-110) mg/dL Calcium 9.5 (8.4-10.2) mg/dL Albumin 4.0 (3.5-5.1) g/dL Intake and Output 05/02/24 05/03/24 05/03/24 23:59 07:59 15:59 Intake Total 830 200 240 Output Total 1300 400 Balance -470 -200 240 Intake: Oral 830 200 240 Output: Urine 650 Catheter Urine 650 400 External/Condom 650 400 Other: Number of Bowel Movements Today 1 Patient Weight 05/03/24 23:59 Weight 93.3 kg This report may have been done utilizing a voice recognition system. Attempts have been made to correct errors. However, there may be uncorrected grammatical,spelling, and recognition errors present. Report Initialized date/time: Karissa Lopez MD 05/03/24 / 1100 Electronically signed by: Karissa Lopez MD 05/03/24 1159 Discharge Summary Note Author [facility] Note Date/Time May 04, 2024 2:50pm [place] [address] Discharge Summary Signed Patient: Rigo Caballero MR#: [id number] : 1945 Acct:[id number] Age: 78 ADM Date: 05/02/24 Loc: [id number]: Hermelinda Babcock M.D. cc: Hermelinda Babcock MD; Shanta Lema PA-C; UNKNOWN,DOCTOR~ DS: Admitting Diagnosis Discharge Date 05/04 Admitting Diagnosis sob DS: Discharge Diagnosis Discharge Diagnosis (1) Pneumonia: Qualifiers: Laterality: left Lung location: upper lobe of lung Pneumonia type: dueto unspecified organism Qualified Code(s): J18.9 - Pneumonia, unspecified organism Code(s): J18.9 - Pneumonia, unspecified organism Status: Acute Assessment and Plan: Patient presents with SOB. WBC was normal. DDimer positive at 2.24. CTA chest showing no obvious PE but mild pulmonary edema, left upper lobe opacity and moderate right and mild left pleural effusion. LE venous Doppler negative for DVT COVID, influenza and RSV PCR negative. Patient is started on Rocephin and Zithromax after appropriate cultures obtained. BCx NGTD WBC higher related to steroids. Weaned to room air Check MRSA nasal swab. Change to oral Doxycycline to complete 5 days. Extend to 7 days total if MRSA +. Continue Rocephin MRSA negative 05/03 if home tomorrow- will downgrade rocephin to po med- prob augmentin (2) New onset of congestive heart failure: Code(s): I50.9 - Heart failure, unspecified Status: Acute Assessment and Plan: CTA chest as above. BNP elevated at 7260. Lasix IV once in the ED. Cr was 1.3 but now up to 1.6. Echo with elevated RAP (15), enlarged LV with thickened wall and mildly reduced EF 45-50%. Moderate and mild MR. Hold further Lasix dosing. No prior diagnosis of congestive heart failure. Cardiology consulted- awaiting recommendations -monitor for edema, sob, i/o (3) Elevated troponin: Code(s): R79.89 - Other specified abnormal findings of blood chemistry Status: Acute Assessment and Plan: Troponin mildly elevated at 0.044 and flat. EKG showing NSR, PVCs, possible LAE, consider anterior infarct, borderline ST-T wave changes inf/lat leads No old EKGs to compare. Repeat EKG showing no change Suspect troponin leak related to CHF (4) Pleural effusion: Code(s): J90 - Pleural effusion, not elsewhere classified Status: Acute Assessment and Plan: CTA chest showing R>L pleural effusion Patient underwent ultrasound-guided thoracentesis yesterday pH >7.5. No RBC./WBC. 24% PMNs, 45% lymph, 20% Macrophages. Cytology pending. Add pleural culture if able. Other studies pending (5) COPD (chronic obstructive pulmonary disease): Code(s): J44.9 - Chronic obstructive pulmonary disease, unspecified Status: Acute Assessment and Plan: Patient with possible COPD exacerbation. He was started on DuoNebs and Solu- Medrol Solu-Medrol will change to oral prednisone Continue Prednisone (6) Tobacco dependence: Code(s): F17.200 - Nicotine dependence, unspecified, uncomplicated Status: Acute Assessment and Plan: Patient educated about the benefit of smoking cessation Plan Debility - PTOT DVT prophylaxis - Lovenox Code status - full DS: Summary Hospital Course Hospital Course: This is a 78-year-old male with past medical history significant for tobacco dependence, presumptive COPD patient apparently on no home meds. Presents to the emergency room with a history of 10 days of persistent cough productive of white thick sputum, shortness of breath with exertion, denies fevers, rigors, chills, body aches or pain, poor appetite, denies chest pain, denies leg swelling, patient states that he quit his smoking 10 days ago. Preliminary workup was significant for CT of the chest ruled out pulmonary emboli but showedlarge pleural effusion right- sided and pneumonia, troponins x3 0.044/0.040/0.37 patient tested negative for influenza type A influenza type B COVID and RSV, brain natriuretic peptide of 7000, D-dimer 2.24. Patient has been admitted for further evaluation management and treatment. # pneumonia Ultrasound guided thoracentesis Patient is started on Rocephin and Zithromax after appropriate cultures obtained. BCx NGTD WBC higher related to steroids. Weaned to room air Check MRSA nasal swab- negative. Change to oral Doxycycline to complete 5 days. has 2 more doses left Rocephin downgraded to Augmentin, still needs 6 ore doses, last day- 05/07 0900am # Heart failure, unspecified- nEW diagnosis Echocardiogram BNP elevated at 7260. No prior diagnosis of congestive heart failure. Does have bilateral pleural effusion right more than left on presentation. With associated mild pulmonary edema on CTA chest. He received a dose of Lasix. Cardiology consulted. it is my clinical impression that most likely has underlying coronary artery disease and with his presentation with COPD exacerbation, pneumonia, mod he had manifested as a rise in troponin - he will need a cardiac catheterization to delineate his coronary anatomy. however I think would be appropriate to do it as an outpatient after the renal function has improved and also we are aware as to the etiology of the right-sided pleural effusion - he also has moderate aortic stenosis for which he will need echo every 6 months - will start him on aspirin 81 mg once daily, who atorvastatin 40 mg once daily and metoprolol succinate 25 mg once daily - he will need guideline directed medical therapy for heart failure; ALEXANDER/ARB/ARNI, MRA and SGLT2. His medications can be optimized as an outpatient Statin, asa, Metoprol scrips were sent tpo phrmacy. Pt was started on 10 mg of jardiance and emmanuel rest of meds and appropriate titrations will be addressed during further follow up. Pt is instructed to keep daily weight, monitor for BLE edema, and chest pain, sob symptoms. Status at Discharge Functional status at discharge: independent ambulation Overall status at discharge: patient is progressing back to baseline Time Spent with Patient Time attestation: Total time spent providing and/or coordinating discharge services: Time spent: Greater than 30 minutes Exam Narrative: AF 97.8 147/90 92 18 96% ra Gen - NARD Chest - decreased BS in the right base with crackles mid and lower lung field; no wheezing CV - RRR S1/S2. No JVD. Tele showing NSR with one episode of probably atrial tachycardia. Abd - Soft, NT/ND, Positive BS Ext - No pedal edema Neuro - Alert and oriented. Nonfocal exam. Psych - Nml mood and affect Skin - Warm and dry Const: General: cooperative, comfortable, no acute distress, well developed, alert, awake, ill appearing chronically and average body habitus Nutritional Appearance: average body habitus Orientation/consciousness: patient oriented x3 Other: on supplemental oxygen by nasal can HENMT: Head: normal to inspection, normocephalic and atraumatic Ears: hearing grossly normal bilaterally Face/Nose/Sinus: normal facial exam Face and sinus: normal facial exam Eyes: General: appearance normal, both eyes and all related structures Pupils: Equal, round and reactive pupils present EOM: EOMs intact bilaterally Neck: Neck: full ROM, no lymphadenopathy and no JVD Thyroid: thyroid normal Lymphatic: no lymphadenopathy noted Resp: Effort & Inspection: normal respiratory effort and able to speak in complete sentences Auscultation: crackles, rales and diminished lung sounds Cardio: Jugular venous distension: no JVD Rate: regular rate Rhythm: regular rhythm Heart sounds: S1 normal heart sound present and S2 normal heart sound present : General: Yes deferred Skin: Rashes: no rashes Wounds: no wounds Neuro: General: patient oriented x3, CN's II-XI intact bilaterally and Unable to assess gait Cranial nerves: Yes CN's II-XII intact bilaterally and Yes Equal, round and reactive pupils present Cognition (Neuro): normal cognition Speech: normal speech Gait exam (Neuro): Unable to assess gait Motor exam (neuro): 5/5 motor strength present throughout Extrem: General: normal to inspection, full ROM, no joint enlargement and no pedal edema DS: Data Data Completed and Pending Completed studies during hospitalization: Pending at discharge 05/01/24 16:41 Cytology [PTH] Routine Labs on day of discharge: Preliminary micro results at discharge 05/01/24 16:41 Anaerobic Culture - Preliminary Pleural Fluid Aerobic Culture - Preliminary 04/30/24 22:00 Blood Culture - Preliminary Blood 04/30/24 22:00 Blood Culture - Preliminary Blood Discharge Plan Discharge Attending physician on discharge: Flako Moreno Consulting providers: Megan Tucker Discharging Clinician: Bessie Vargas Patient Disposition: Home, Self-Care Activity: may shower Diet: as tolerated and heart healthy Discharge Instructions: please f/u with cardiology. call and get an darlin. If you experience chest pain /shortness of breath- please report to er. Monitor your weight, first thing in am, and keep log. Monitor leg swelling. Increased leg swelling, weight gain and shortness of breath may indicate heart failure exacerbation. Cardiology started you on aspirin 81 mg once daily, atorvastatin 40 mg once daily and metoprolol succinate 25 mg once daily. I will sent a script for SGLT-2, Jardiance 10 mg. all of these medications are part of heart failure regimen. you will have two antibiotics to take: augmentin-take 1 tab twice a day, am and pm, for total of 6 doses. Doxycycline 1 tab twice a day, you have 2 more doses left. Patient Instructions: Antibiotic Form, Heart Failure (DC), Pain Management (DC), High Troponin Levels (GEN) Stand Alone Forms: General Discharge Information Follow-up/Referrals: Megan Tucker, [Physician] - 2 Weeks Discharge Medications: New atorvastatin 40 mg Tablet 40 mg PO DAILY Qty: 90 0RF aspirin 81 mg Tablet,Delayed Release (Dr/Ec) 81 mg PO QAM Qty: 90 0RF metoprolol succinate [Toprol XL] 25 mg Tablet Extended Release 24 Hr 25 mg PO QAM Qty: 90 0RF doxycycline hyclate 100 mg Tablet 100 mg PO Q12HR Qty: 2 0RF Jardiance 10 mg tablet 10 mg PO DAILY Qty: 90 0RF amoxicillin-pot clavulanate 875-125 mg tablet 1 tablet PO Q12H Qty: 6 0RF Date of admission: 05/02/24 16:11 Primary Care Provider: UNKNOWN,DOCTOR Admitting Provider: Hermelinda Babcock V. Attending physician on admission: Hermelinda Babcock V. Condition: Stable Hospitalist MIPS Heart Failure (Exclusion) Patient has history of Heart Transplant or Left Ventricular Assistive Device?: No IF YES, STOP HERE Heart Failure (Qualifier) Patient has current or prior documentation of LVEF less than or equal to 40%, ormod/servere depressed LVSF?: No IF NO, STOP HERE If Yes, Heart Failure (Qualifier) Patient was prescribed or already taking an Angiotensin-Converting Enzyme (ALEXANDER) Inhibitor, or Antiotensin Receptor Mateo (ARB): Yes Patient was prescribed or already taking bisoprolol, carvedilol, or sustained release metoprolol succinate: Yes This report may have been done utilizing a voice recognition system. Attempts have been made to correct errors. However, there may be uncorrected grammatical,spelling, and recognition errors present. Report Initialized date/time: Bessie Vargas APRN 05/04/24 / 1429 Electronically signed by: Bessie Vargas APRN 05/04/24 1450 History & Physical Note Author Hermelinda Babcock [facility] Note Date/Time May 01, 2024 10:05pm [place] [address] [place] [address] History & Physical Report Signed Patient: Rigo Caballero MR#: [id number] : 1945 Acct:[id number] Age: 78 ADM Date: 04/30/24 Loc: [id number]: Hermelinda Babcock M.D. cc: Hermelinda Babcock MD; Shanta Lema PA-C; UNKNOWN,DOCTOR~ H&P: HPI History of Present Illness Date/Time: 04/30/24 21:48 Chief Complaint: shortness of breath Narrative: This is a 78-year-old male with past medical history significant for tobacco dependence, presumptive COPD patient apparently on no home meds. Presents to the emergency room with a history of 10 days of persistent cough productive of white thick sputum, shortness of breath with exertion, denies fevers, rigors, chills, body aches or pain, poor appetite, denies chest pain, denies leg swelling, patient states that he quit his smoking 10 days ago. Preliminary workup was significant for CT of the chest ruled out pulmonary emboli but showedlarge pleural effusion right- sided and pneumonia, troponins x3 0.044/0.040/0.37 patient tested negative for influenza type A influenza type B COVID and RSV, brain natriuretic peptide of 7000, D-dimer 2.24. Patient has been admitted for further evaluation management and treatment. EXAMINATION: XR chest 2V DATE: 04/30/2024 16:33 INDICATION: Soreness of breath TECHNIQUE: PA and lateral views of the chest were obtained. COMPARISON: None FINDINGS: Opacities at the right lower lung zone consistent with a small to moderate- sizedright pleural effusion with associated atelectasis and/or pneumonia. Left lung is clear. No pneumothorax or left-sided pleural effusion. Heart size is normal. Mild thoracic spondylosis with mild anterior wedging of a couple lower thoracic vertebral bodies. IMPRESSION: 1. Opacities in the right lower lung zone consistent with unilateral small to moderate-sized right pleural effusion and associated atelectasis and/or pneumonia. EXAMINATION: CTA chest PE protocol DATE: 04/30/2024 21:09 INDICATION: Dyspnea. TECHNIQUE: Computed tomography angiography (CTA) of the chest was performed pprr315 mL Omnipaque-350 intravenous contrast timed to evaluate the pulmonary arteries. Coronal maximum intensity projection 3D-reconstructions were created by the technologist. Automated exposure control and iterative reconstruction technique were employed. The dose-length product was 712.76 mGy-cm. COMPARISON: Chest 2 views 04/30/2024 FINDINGS: There are moderate-sized right and small left pleural effusions. Thereis septal thickening in the lungs, consistent with mild pulmonary edema. There are patchy airspace opacities in left upper lobe. There is passive atelectasis in right middle lobe and right lower lobe. Cardiomegaly is noted. There are coronary artery calcifications. There are calcifications of the aortic valve. Nopericardial effusion. There is severe atrophy of left kidney. Partially visualized is left hydronephrosis. There is no pulmonary embolus. There is mild mediastinal lymphadenopathy, likely reactive. There are bridging endplate osteophytes at multiple levels in the spine, consistent with diffuse idiopathic skeletal hyperostosis (DISH). There is mild chronic anterior wedging of multiplevertebral bodies. IMPRESSION: 1. Mild pulmonary edema. 2. Mild airspace opacities in left lung upper lobe, consistent with pulmonary edema versus pneumonia. 3. Moderate-sized right and small left pleural effusions. 4. No pulmonary embolus. Sensitivity is moderately decreased by motion artifact. 5. Partially visualized severe atrophy of left kidney. Left hydronephrosis. Review of Systems Review of Systems: Persistent productive cough of white thick sputum, shortness of breath. [facility] Family History Family History Father Acute myocardial infarction Hypertension Sibling Acute myocardial infarction Social History Social History Smoking status: Former smoker Alcohol intake: current Drinks per week: 5 Substance use type: does not use Do You Feel Safe in your Home?: Yes Lack of Transportation: No Lack of Food: Never True Current Housing: I Have Housing Concerned About Future Housing: No Difficulty Paying Gas/Electric Bills: No Difficulty Paying for Meds: No Currently Unemployed: No Education: High School Diploma/GED Difficulty w/ Childcare or Family Care: No Spiritual care concerns: No Meds Home Medications and Allergies Home Medications Medication Instructions Recorded Confirmed Type No Home Medications 04/30/24 04/30/24 History Allergies Allergy/AdvReac Type Severity Reaction Status Date / Time No Known Allergies Allergy Verified 04/30/24 14:34 Vital Signs Vital Signs - 24 hr 04/30/24 14:29 04/30/24 18:31 04/30/24 18:31 Temperature 97.5 F L Pulse Rate 97 92 94 Respiratory Rate 17 22 H Blood Pressure 155/93 H 155/95 H Pulse Oximetry 97 94 Oxygen Delivery Room Air 04/30/24 18:35 04/30/24 19:11 04/30/24 19:27 Temperature Pulse Rate 89 Respiratory Rate 21 H Blood Pressure Pulse Oximetry 100 93 Oxygen Delivery Room Air Room Air 04/30/24 20:11 Temperature 98 F Pulse Rate 84 Respiratory Rate 20 Blood Pressure 155/92 H Pulse Oximetry 100 Oxygen Delivery Exam Narrative: Patient is laying in a stretcher Const: General: cooperative, comfortable, no acute distress, well developed, alert, awake, ill appearing chronically and average body habitus Nutritional Appearance: average body habitus Orientation/consciousness: patient oriented x3 Other: on supplemental oxygen by nasal can HENMT: Head: normal to inspection, normocephalic and atraumatic Ears: hearing grossly normal bilaterally Face/Nose/Sinus: normal facial exam Face andsinus: normal facial exam Eyes: General: appearance normal, both eyes and all related structures Pupils: Equal, round and reactive pupils present EOM: EOMs intact bilaterally Neck: Neck: full ROM, no lymphadenopathy and no JVD Thyroid: thyroid normal Lymphatic: no lymphadenopathy noted Resp: Effort & Inspection: normal respiratory effort and able to speak in complete sentences Auscultation: crackles, rales and diminished lung sounds Cardio: Jugular venous distension: no JVD Rate: regular rate Rhythm: regular rhythm Heart sounds: S1 normal heart sound present and S2 normal heart sound present GI: GI Palp: Yes Soft to palpation and Yes No hepatosplenomegaly present : General: Yes deferred Skin: Rashes: no rashes Wounds: no wounds Neuro: General: patient oriented x3 and CN's II-XI intact bilaterally Cranial nerves: Yes CN's II-XII intact bilaterally and Yes Equal, round and reactive pupils present Cognition (Neuro): normal cognition Speech: normalspeech Gait exam (Neuro): Unable to assess gait Motor exam (neuro): 5/5 motor strength present throughout Extrem: General: normal to inspection, full ROM, no joint enlargement and no pedal edema H&P: Results Labs Labs: Short CBC 04/30/24 Range/Units 16:15 WBC 8.9 (4.5-10.0) K/mm3 Hgb 12.7 L (14.0-18.0) g/dL Hct 38.2 L (42.0-52.0) % Plt Count 296 (150-375) k/mm3 BMP 04/30/24 16:15 Sodium 136 L Potassium 4.1 Chloride 104 Carbon Dioxide 22 BUN 26 H Creatinine 1.30 Glucose 106 Calcium 9.6 Cardiac Enzymes 04/30/24 04/30/24 Range/Units 16:15 19:40 Troponin I 0.044 H* 0.040 H* (0.000-0.034) ng/mL Liver Function 04/30/24 Range/Units 16:15 Total Bilirubin 0.9 (0.2-1.3) mg/dL AST 23 (17-59) U/L ALT 15 (6-50) U/L Alkaline Phosphatase 63 (38-126) U/L Albumin 4.4 (3.5-5.1) g/dL Assessment and Plan Assessment and plan (1) Pneumonia: Qualifiers: Laterality: left Lung location: upper lobe of lung Pneumonia type: dueto unspecified organism Qualified Code(s): J18.9 - Pneumonia, unspecified organism Code(s): J18.9 - Pneumonia, unspecified organism Status: Acute Assessment and Plan: admit to IMU patient is started on Rocephin and Zithromax cultures in progress (2) Tobacco dependence: Code(s): F17.200 - Nicotine dependence, unspecified, uncomplicated Status: Acute Assessment and Plan: nicotine patch as needed (3) COPD (chronic obstructive pulmonary disease): Code(s): J44.9 - Chronic obstructive pulmonary disease, unspecified Status: Acute Assessment and Plan: DuoNebs (4) Elevated troponin: Code(s): R79.89 - Other specified abnormal findings of blood chemistry Status: Acute Assessment and Plan: slightly elevated continue to trend no EKG changes (5) Pleural effusion: Code(s): J90 - Pleural effusion, not elsewhere classified Status: Acute Assessment and Plan: ultrasound-guided thoracentesis in a.m. pleural fluid for analysis (6) New onset of congestive heart failure: Code(s): I50.9 - Heart failure, unspecified Status: Acute Assessment and Plan: will obtained echocardiogram in a.m. diurese as needed Hospitalist MIPS Advance Care Plan I have confirmed that the patient's Advanced Care Plan is present, code status is documented, or surrogate decision maker is listed in patient medical record.:Yes Medication Reconciliation I have utilized all available resources to obtain, update and review the patients current medications (includes all prescriptions, OTC, herbals, cannabis, and nutritional supplements).: Yes This report may have been done utilizing a voice recognition system. Attempts have been made to correct errors. However, there may be uncorrected grammatical,spelling, and recognition errors present. Report Initialized date/time: Hermelinda Babcock MD 05/01/248 Electronically signed by: Hermelinda Babcock MD 05/01/242204 Progress Note Author Giovanna Tello [facility] Note Date/Time May 03, 2024 5:08pm [facility] [address] [place] [address] Emergency Room Visit Note Signed Patient: Rigo Caballero MR#: [id number] : 1945 Acct:[id number] Age: 78 ADM Date: 05/02/24 Loc: [id number] 261-[address]: Hermelinda Babcock M.D. cc: Rolando Daily MD; Giovanna Tello PA-C; Shanta Lema PA-C; UNKNOWN,DOCTOR~ HPI - SOB/Dyspnea General Chief Complaint: Shortness of Breath/Dyspnea <Giovanna Tello PA-C - Last Filed: 04/30/24 15:50> Stated Complaint: SOB <Giovanna Tello PA-C - Last Filed: 04/30/24 15:50> Time Seen by Provider: 04/30/24 15:44 <Giovanna Tello PA-C - Last Filed: 04/30/24 15:50> Focused HPI: Patient is a 78 y/o male, with pmh of HTN, who presents to the ED with c/o SOB. Patient reports having increased shortness breath for thepast 2 weeks. Shortness breath is worse with exertion and lying flat. He also reports having intermittent discomfort in his left-sided chest. He has had a cough with production of thick white mucus. Denies fevers, pain or swelling in legs, sick contacts. GENERAL: Elderly, somewhat frail, well-nourished, and in no acute distress. HEAD: Normocephalic, atraumatic. CHEST: Clear to auscultation. ???Mild conversational dyspnea. No significant focallung sounds. HEART: Regular rate and rhythm.???No significant peripheral edema. NEURO: ???Alert and oriented x3. Patient screened in triage and initial orders placed.?Additional care and disposition to be based upon???diagnostic testing and treatment. <Giovanna Tello PA-C - Last Filed: 04/30/24 15:50> Source: patient <GLORIA Christensen Last Filed: 04/30/24 15:50> Mode of arrival: ambulatory <GLORIA Christensen Last Filed: 04/30/24 15:50> Limitations: no limitations <GLORIA Christensen Last Filed: 04/30/24 15:50> History of Present Illness HPI Narrative: Agree with the above triage, however anesthesia if he has chest pain he denies this. His right exertional dyspnea and orthopnea as well as a productivecough with sputum. States he has been smoking 1 pack per day since he was 15 years old. No formal diagnosis of COPD or asthma. Also denies lower extremity edema or history of CHF. <GLORIA Rogel Last Filed: 04/30/24 21:50> Related Data Home Medications: Home Medications Medication Instructions Recorded Confirmed No Home Medications 04/30/24 04/30/24 <Giovanna Tello PA-C Last Filed: 04/30/24 15:50> Allergies/Adverse Reactions: Allergies Allergy/AdvReac Type Severity Reaction Status Date / Time No Known Allergies Allergy Verified 04/30/24 14:34 <GLORIA Christensen Last Filed: 04/30/24 15:50> Review of Systems Review of Systems: All systems reviewed & are unremarkable except as noted in HPI and below <GLORIA Rogel Last Filed: 04/30/24 21:50> [facility] Family History Family History: Family History (Updated 04/30/24 @ 22:56 by Rain Casillas RN) Father Acute myocardial infarction Hypertension Sibling Acute myocardial infarction <GLORIA Christensen Last Filed: 04/30/24 15:50> Social History Social History: Social History Smoking status: Former smoker Alcohol intake: current Drinks per week: 5 Substance use type: does not use Do You Feel Safe in your Home?: Yes Lack of Transportation: No Lack of Food: Never True Current Housing: I Have Housing Concerned About Future Housing: No Difficulty Paying Gas/Electric Bills: No Difficulty Paying for Meds: No Currently Unemployed: No Education: High School Diploma/GED Difficulty w/ Childcare or Family Care: No Spiritual care concerns: No <Giovanna Tello PA-C - Last Filed: 04/30/24 15:50> Exam Narrative: GENERAL: Well-appearing, well-nourished, and in no acute distress. HEAD: Normocephalic, atraumatic. EYES: PERRLA and EOMI. ENT: Nares clear, no rhinorrhea or epistaxis. Mucous membranes moist. NECK: Supple. CHEST: Decreased lung sounds throughout all lung bonilla with mild expiratory wheezing in the lower bonilla. No rales or rhonchi. Patient is satting 93% on room air and speaking in full sentences. No respiratory distress. HEART: Regular rate and rhythm. No murmur heard. Normal peripheral pulses. ABDOMEN: Soft, nontender, nondistended, normal active bowel sounds. EXTREMITIES: Normal range of motion. 3+ pitting edema to bilateral lower extremities SKIN: Warm, dry, no rash. NEURO: No focal deficits. Alert and oriented x3 <Shanta Lema PA-C - Last Filed: 04/30/24 21:50> Course WATER METER INSTALLER/PA Physician Supervision For this patient encounter, I reviewed the WATER METER INSTALLER or PA documentation, treatment plan, and medical decision making and had [id number] time with this patient. I performed all aspects of the MDM as documented. <Rolando Daily MD - Last Filed: 05/01/24 07:30> Vital Signs Vital signs: Vital Signs Temperature 97.5 F L 04/30/24 14:29 Pulse Rate 97 04/30/24 14:29 Respiratory Rate 17 04/30/24 14:29 Blood Pressure 155/93 H 04/30/24 14:29 Pulse Oximetry 97 04/30/24 14:29 Oxygen Delivery Room Air 04/30/24 14:29 Temperature 97.8 F 05/01/24 07:20 Pulse Rate 84 05/01/24 07:20 Respiratory Rate 18 05/01/24 07:20 Blood Pressure 148/84 H 05/01/24 07:20 Pulse Oximetry 95 05/01/24 07:20 Oxygen Delivery Room Air 05/01/24 04:00 <GLORIA Christensen Last Filed: 04/30/24 15:50> Vital Signs Temperature 97.5 F L 04/30/24 14:29 Pulse Rate 97 04/30/24 14:29 Respiratory Rate 17 04/30/24 14:29 Blood Pressure 155/93 H 04/30/24 14:29 Pulse Oximetry 97 04/30/24 14:29 Oxygen Delivery Room Air 04/30/24 14:29 Temperature 97.8 F 05/01/24 07:20 Pulse Rate 84 05/01/24 07:20 Respiratory Rate 18 05/01/24 07:20 Blood Pressure 148/84 H 05/01/24 07:20 Pulse Oximetry 95 05/01/24 07:20 Oxygen Delivery Room Air 05/01/24 04:00 <Shanta Lema PA-C - Last Filed: 04/30/24 21:50> Vital Signs Temperature 97.5 F L 04/30/24 14:29 Pulse Rate 97 04/30/24 14:29 Respiratory Rate 17 04/30/24 14:29 Blood Pressure 155/93 H 04/30/24 14:29 Pulse Oximetry 97 04/30/24 14:29 Oxygen Delivery Room Air 04/30/24 14:29 Temperature 97.8 F 05/01/24 07:20 Pulse Rate 84 05/01/24 07:20 Respiratory Rate 18 05/01/24 07:20 Blood Pressure 148/84 H 05/01/24 07:20 Pulse Oximetry 95 05/01/24 07:20 Oxygen Delivery Room Air 05/01/24 04:00 <Rolando Daily MD - Last Filed: 05/01/24 07:30> MDM - SOB/Dyspnea MDM Narrative Medical decision making narrative: MSE by DARLIN in triage. <GLORIA Christensen Last Filed: 04/30/24 15:50> MSE by DARLIN in triage. 78-year-old male with history of hypertension presents to the emergency department for exertional dyspnea, productive cough, orthopnea for 2 weeks. Vitals are stable. He is satting 93% on room air upon my evaluation and is in no respiratory distress. Speaking full sentences. Exam is significant for 3+ lower extremity edema and decreased lung sounds with expiratory wheezing in the lower lung bonilla. His workup shows no leukocytosis. Hemoglobin is 12.7 with no prior for comparison. Chemistries are largely unremarkable. BNP is elevated to 7260. COVID, flu RSV are negative. EKG shows sinus rhythm with occasional PVC, Q-waves in the anterior leads, no ischemic changes. Troponin is elevated 0.044. Patient is denying chest pain to myself. Will trend troponins. Chest x-ray shows opacities in the right lower lung zone consistent with anterolateral small to moderate-sized right pleural effusion and associated atelectasis and/or pneumonia. Suspect a component of undiagnosed COPD and CHF. Patient was given DuoNeb, 125 mg of Solu-Medrol and 40 mg of Lasix. D-dimer elevated so CTA chest PE obtained which shows no evidence of PE. There is mild pulmonary edema and mild airspace opacities in the left upper lobe consistent with pulmonary edema versus pneumonia. There are moderate size rightand small left pleural effusions. Patient was updated on the workup. He was started on Rocephin and azithromycin to cover pneumonia. Plan to admit to the hospitalist for further evaluation andmanagement. Patient is amenable to this. Discussed the case with hospitalist, Dr. Babcock, who agrees to the plan for admission. <Shanta Lema PA-C - Last Filed: 04/30/24 21:50> Lab Data Result diagrams: 04/30/24 16:15 04/30/24 16:15 <Giovanna Tello PA-C - Last Filed: 04/30/24 15:50> Labs: Lab Results 04/30/24 04/30/24 04/30/24 Range/Units 16:15 19:40 21:33 WBC 8.9 (4.5-10.0) K/mm3 RBC 4.09 L (4.6-6.20) M/mm3 Hgb 12.7 L (14.0-18.0) g/dL Hct 38.2 L (42.0-52.0) % MCV 93.4 (80-100) fl MCH 31.1 (26-34) pg MCHC 33.2 (32-36) g/dl RDW 11.6 (11.5-14.5) % Plt Count 296 (150-375) k/mm3 MPV 10.4 (7.4-10.4) fl Immature Gran % (Auto) 0.3 (0-0.5) % Neut % (Auto) 71.0 (45.5-73.1) % Lymph % (Auto) 16.9 L (18.3-44.2) % Esmeralda % (Auto) 8.8 H (2.6-8.5) % Eos % (Auto) 2.2 (0-4.4) % Baso % (Auto) 0.8 (0.2-1.2) % Lymph # (Auto) 1.51 (0.9-3.2) K/mm3 Esmeralda # (Auto) 0.8 H (0.1-0.6) K/mm3 Eos # (Auto) 0.2 (0-0.3) K/mm3 Baso # (Auto) 0.1 (0.0-0.1) K/mm3 Abs Immat Gran (auto) 0.03 (0.00-0.031) K/mm3 Absolute Neuts (auto) 6.3 (1.3-6.7) K/mm3 Absolute Nucleated RBC 0.000 (0.0-0.012) K/mm3 Nucleated RBC % 0.0 (0.0-0.2) % PT 14.8 H (11.1-14.7) Seconds INR 1.1 APTT 35.9 (22.3-36.8) Seconds D-Dimer 2.24 H (<0.48) ug/mL Sodium 136 L (137-145) mmol/L Potassium 4.1 (3.4-5.0) mmol/L Chloride 104 (98-107) mmol/L Carbon Dioxide 22 (22-30) mmol/L Anion Gap 10 (4-12) mmol/L BUN 26 H (9-20) mg/dL Creatinine 1.30 (0.7-1.3) mg/dL Estim Creat Clear Calc 49 ml/min Estimated GFR 54 L (59 - ) Glucose 106 (65-110) mg/dL Calcium 9.6 (8.4-10.2) mg/dL Total Bilirubin 0.9 (0.2-1.3) mg/dL AST 23 (17-59) U/L ALT 15 (6-50) U/L Alkaline Phosphatase 63 (38-126) U/L Troponin I 0.044 H* 0.040 H* (0.000-0.034) ng/mL NT-Pro-B Natriuret Pep 7260 H (19.9-100) pg/mL Total Protein 9.0 H (6.3-8.2) g/dL Albumin 4.4 (3.5-5.1) g/dL Urine Color Yellow (Yellow) Urine Appearance Clear (Clear) Urine pH 5.5 (5.0-9.0) Ur Specific [place] 1.008 (1.001-1.035) Urine Protein Negative (Negative) mg/dL Urine Glucose (UA) Negative (Negative) mg/dL Urine Ketones Negative (Negative) mg/dL Ur Blood (Man) Negative (Negative) Urine Nitrate Negative (Negative) Urine Bilirubin Negative (Negative) Urine Urobilinogen 0.2 (<2.0) mg/dL Leukocyte Esterase Rfl Negative (Negative) LUCIA/UL Influenza A (RT-PCR) Negative (Negative) Influenza B (RT-PCR) Negative (Negative) RSV (RT-PCR) Negative (Negative) SARS-CoV-2 RNA (RT-PCR) Negative (Negative) <Giovanna Tello PA-C - Last Filed: 04/30/24 15:50> Lab Results 04/30/24 04/30/24 04/30/24 Range/Units 16:15 19:40 21:33 WBC 8.9 (4.5-10.0) K/mm3 RBC 4.09 L (4.6-6.20) M/mm3 Hgb 12.7 L (14.0-18.0) g/dL Hct 38.2 L (42.0-52.0) % MCV 93.4 (80-100) fl MCH 31.1 (26-34) pg MCHC 33.2 (32-36) g/dl RDW 11.6 (11.5-14.5) % Plt Count 296 (150-375) k/mm3 MPV 10.4 (7.4-10.4) fl Immature Gran % (Auto) 0.3 (0-0.5) % Neut % (Auto) 71.0 (45.5-73.1) % Lymph % (Auto) 16.9 L (18.3-44.2) % Esmeralda % (Auto) 8.8 H (2.6-8.5) % Eos % (Auto) 2.2 (0-4.4) % Baso % (Auto) 0.8 (0.2-1.2) % Lymph # (Auto) 1.51 (0.9-3.2) K/mm3 Esmeralda # (Auto) 0.8 H (0.1-0.6) K/mm3 Eos # (Auto) 0.2 (0-0.3) K/mm3 Baso # (Auto) 0.1 (0.0-0.1) K/mm3 Abs Immat Gran (auto) 0.03 (0.00-0.031) K/mm3 Absolute Neuts (auto) 6.3 (1.3-6.7) K/mm3 Absolute Nucleated RBC 0.000 (0.0-0.012) K/mm3 Nucleated RBC % 0.0 (0.0-0.2) % PT 14.8 H (11.1-14.7) Seconds INR 1.1 APTT 35.9 (22.3-36.8) Seconds D-Dimer 2.24 H (<0.48) ug/mL Sodium 136 L (137-145) mmol/L Potassium 4.1 (3.4-5.0) mmol/L Chloride 104 (98-107) mmol/L Carbon Dioxide 22 (22-30) mmol/L Anion Gap 10 (4-12) mmol/L BUN 26 H (9-20) mg/dL Creatinine 1.30 (0.7-1.3) mg/dL Estim Creat Clear Calc 49 ml/min Estimated GFR 54 L (59 - ) Glucose 106 (65-110) mg/dL Calcium 9.6 (8.4-10.2) mg/dL Total Bilirubin 0.9 (0.2-1.3) mg/dL AST 23 (17-59) U/L ALT 15 (6-50) U/L Alkaline Phosphatase 63 (38-126) U/L Troponin I 0.044 H* 0.040 H* (0.000-0.034) ng/mL NT-Pro-B Natriuret Pep 7260 H (19.9-100) pg/mL Total Protein 9.0 H (6.3-8.2) g/dL Albumin 4.4 (3.5-5.1) g/dL Urine Color Yellow (Yellow) Urine Appearance Clear (Clear) Urine pH 5.5 (5.0-9.0) Ur Specific [place] 1.008 (1.001-1.035) Urine Protein Negative (Negative) mg/dL Urine Glucose (UA) Negative (Negative) mg/dL Urine Ketones Negative (Negative) mg/dL Ur Blood (Man) Negative (Negative) Urine Nitrate Negative (Negative) Urine Bilirubin Negative (Negative) Urine Urobilinogen 0.2 (<2.0) mg/dL Leukocyte Esterase Rfl Negative (Negative) LUCIA/UL Influenza A (RT-PCR) Negative (Negative) Influenza B (RT-PCR) Negative (Negative) RSV (RT-PCR) Negative (Negative) SARS-CoV-2 RNA (RT-PCR) Negative (Negative) <Shanta Lema PA-C - Last Filed: 04/30/24 21:50> Lab Results 04/30/24 04/30/24 04/30/24 Range/Units 16:15 19:40 21:33 WBC 8.9 (4.5-10.0) K/mm3 RBC 4.09 L (4.6-6.20) M/mm3 Hgb 12.7 L (14.0-18.0) g/dL Hct 38.2 L (42.0-52.0) % MCV 93.4 (80-100) fl MCH 31.1 (26-34) pg MCHC 33.2 (32-36) g/dl RDW 11.6 (11.5-14.5) % Plt Count 296 (150-375) k/mm3 MPV 10.4 (7.4-10.4) fl Immature Gran % (Auto) 0.3 (0-0.5) % Neut % (Auto) 71.0 (45.5-73.1) % Lymph % (Auto) 16.9 L (18.3-44.2) % Esmeralda % (Auto) 8.8 H (2.6-8.5) % Eos % (Auto) 2.2 (0-4.4) % Baso % (Auto) 0.8 (0.2-1.2) % Lymph # (Auto) 1.51 (0.9-3.2) K/mm3 Esmeralda # (Auto) 0.8 H (0.1-0.6) K/mm3 Eos # (Auto) 0.2 (0-0.3) K/mm3 Baso # (Auto) 0.1 (0.0-0.1) K/mm3 Abs Immat Gran (auto) 0.03 (0.00-0.031) K/mm3 Absolute Neuts (auto) 6.3 (1.3-6.7) K/mm3 Absolute Nucleated RBC 0.000 (0.0-0.012) K/mm3 Nucleated RBC % 0.0 (0.0-0.2) % PT 14.8 H (11.1-14.7) Seconds INR 1.1 APTT 35.9 (22.3-36.8) Seconds D-Dimer 2.24 H (<0.48) ug/mL Sodium 136 L (137-145) mmol/L Potassium 4.1 (3.4-5.0) mmol/L Chloride 104 (98-107) mmol/L Carbon Dioxide 22 (22-30) mmol/L Anion Gap 10 (4-12) mmol/L BUN 26 H (9-20) mg/dL Creatinine 1.30 (0.7-1.3) mg/dL Estim Creat Clear Calc 49 ml/min Estimated GFR 54 L (59 - ) Glucose 106 (65-110) mg/dL Calcium 9.6 (8.4-10.2) mg/dL Total Bilirubin 0.9 (0.2-1.3) mg/dL AST 23 (17-59) U/L ALT 15 (6-50) U/L Alkaline Phosphatase 63 (38-126) U/L Troponin I 0.044 H* 0.040 H* (0.000-0.034) ng/mL NT-Pro-B Natriuret Pep 7260 H (19.9-100) pg/mL Total Protein 9.0 H (6.3-8.2) g/dL Albumin 4.4 (3.5-5.1) g/dL Urine Color Yellow (Yellow) Urine Appearance Clear (Clear) Urine pH 5.5 (5.0-9.0) Ur Specific [place] 1.008 (1.001-1.035) Urine Protein Negative (Negative) mg/dL Urine Glucose (UA) Negative (Negative) mg/dL Urine Ketones Negative (Negative) mg/dL Ur Blood (Man) Negative (Negative) Urine Nitrate Negative (Negative) Urine Bilirubin Negative (Negative) Urine Urobilinogen 0.2 (<2.0) mg/dL Leukocyte Esterase Rfl Negative (Negative) LUCIA/UL Influenza A (RT-PCR) Negative (Negative) Influenza B (RT-PCR) Negative (Negative) RSV (RT-PCR) Negative (Negative) SARS-CoV-2 RNA (RT-PCR) Negative (Negative) <Rolando Daily MD - Last Filed: 05/01/24 07:30> Discharge Plan Discharge Clinical Impression: New onset of congestive heart failure, Pleural effusion, Elevated troponin Pneumonia Qualifiers: Pneumonia type: due to unspecified organism Laterality: left Lung location: upper lobe of lung Qualified Code(s): J18.9 - Pneumonia, unspecified organism <Giovanna Tello PA-C - Last Filed: 04/30/24 15:50> Patient Disposition: Still a Patient <Giovanna Tello PA-C - Last Filed: 04/30/24 15:50> Condition: Stable <Giovanna Tello PA-C - Last Filed: 04/30/24 15:50> This report may have been done utilizing a voice recognition system. Attempts have been made to correct errors. However, there may be uncorrected grammatical,spelling, and recognition errors present. Report Initialized date/time: Giovanna Tello PA-C 04/30/24 / 1547 Electronically signed by: Giovanna Tello PA-C 05/03/24 [id number] Rolando Daily MD 05/01/24 [id number] Shanta Lema PA-C 05/01/24 [id number] Progress Note Author [facility] Note Date/Time May 01, 2024 12:56pm [facility] [address] [place] [address] Hospitalist Progress Note Signed Patient: Rigo Caballero MR#: [id number] : 1945 Acct:[id number] Age: 78 ADM Date: 04/30/24 Loc: [facility] 206-[address]: Hermelinda Babcock M.D. cc: ~ Progress Note: A&P Assessment and Plan (1) Pneumonia: Qualifiers: Laterality: left Lung location: upper lobe of lung Pneumonia type: dueto unspecified organism Qualified Code(s): J18.9 - Pneumonia, unspecified organism Code(s): J18.9 - Pneumonia, unspecified organism Status: Acute Assessment and Plan: patient is started on Rocephin and Zithromax cultures in progress (2) Tobacco dependence: Code(s): F17.200 - Nicotine dependence, unspecified, uncomplicated Status: Acute Assessment and Plan: nicotine patch as needed (3) COPD (chronic obstructive pulmonary disease): Code(s): J44.9 - Chronic obstructive pulmonary disease, unspecified Status: Acute Assessment and Plan: DuoNebs Received a dose of Solu-Medrol Possible COPD exacerbation an on Solu-Medrol will change to oral prednisone (4) Elevated troponin: Code(s): R79.89 - Other specified abnormal findings of blood chemistry Status: Acute Assessment and Plan: slightly elevated and remains flat no EKG changes (5) Pleural effusion: Code(s): J90 - Pleural effusion, not elsewhere classified Status: Acute Assessment and Plan: ultrasound-guided thoracentesis plan today pleural fluid for analysis (6) New onset of congestive heart failure: Code(s): I50.9 - Heart failure, unspecified Status: Acute Assessment and Plan: Echocardiogram BNP elevated at 7260. Diuresis as needed No prior diagnosis of congestive heart failure. Does have bilateral pleural effusion right more than left on presentation. With associated mild pulmonary edema on CTA chest. He received a dose of Lasix yesterday Subjective Date/time seen: 05/01/24 12:50 Interval history: No Overnight events. Feeling better. He is going for tap. Denies any leg swelling. Chest x-ray and CT scan reviewed. Review of Systems Review of Systems: All systems reviewed & are unremarkable except as noted in HPI and below Exam Narrative: GENERAL: Well-appearing, well-nourished, and in no acute distress. HEAD: Normocephalic, atraumatic. EYES: PERRLA and EOMI. ENT: Nares clear, no rhinorrhea or epistaxis. Mucous membranes moist. NECK: Supple. CHEST: Coarse breath sounds bilaterally. No rales or rhonchi. No respiratory distress HEART: Regular rate and rhythm. No murmur heard. Normal peripheral pulses. ABDOMEN: Soft, nontender, nondistended, normal active bowel sounds. EXTREMITIES: Normal range of motion. Trace edema to bilateral lower extremities SKIN: Warm, dry, no rash. NEURO: No focal deficits. Alert and oriented x3 Objective Data Vital Signs Vital Signs: Vital Signs - 24 hr 04/30/24 14:29 04/30/24 18:31 04/30/24 18:31 Temperature 97.5 F L Pulse Rate 97 92 94 Respiratory Rate 17 22 H Blood Pressure 155/93 H 155/95 H Pulse Oximetry 97 94 Oxygen Delivery Room Air Fraction of Inspired Oxygen 04/30/24 18:35 04/30/24 19:11 04/30/24 19:27 Temperature Pulse Rate 89 Respiratory Rate 21 H Blood Pressure Pulse Oximetry 100 93 Oxygen Delivery Room Air Room Air Fraction of Inspired Oxygen 04/30/24 20:11 04/30/24 21:30 04/30/24 22:22 Temperature 98 F 98.1 F Pulse Rate 84 86 Respiratory Rate 20 16 Blood Pressure 155/92 H 148/84 H Pulse Oximetry 100 94 94 Oxygen Delivery Room Air Fraction of Inspired Oxygen 04/30/24 22:45 04/30/24 23:43 05/01/24 00:00 Temperature 98.2 F Pulse Rate 87 83 83 Respiratory Rate 20 20 Blood Pressure 139/86 123/73 Pulse Oximetry 95 95 Oxygen Delivery Room Air Fraction of Inspired Oxygen 05/01/24 00:00 05/01/24 03:15 05/01/24 04:00 Temperature 98.7 F Pulse Rate 83 94 94 Respiratory Rate 20 20 Blood Pressure 147/77 H Pulse Oximetry 92 92 Oxygen Delivery Room Air Fraction of Inspired Oxygen 05/01/24 02:00 05/01/24 04:00 05/01/24 06:00 Temperature Pulse Rate 90 78 85 Respiratory Rate Blood Pressure Pulse Oximetry Oxygen Delivery Fraction of Inspired Oxygen 05/01/24 07:20 05/01/24 08:49 05/01/24 08:49 Temperature 97.8 F Pulse Rate 84 85 Respiratory Rate 18 18 Blood Pressure 148/84 H Pulse Oximetry 95 95 Oxygen Delivery Room Air Fraction of Inspired Oxygen 05/01/24 08:56 05/01/24 08:00 05/01/24 08:00 Temperature Pulse Rate 84 84 88 Respiratory Rate 18 18 Blood Pressure Pulse Oximetry 95 Oxygen Delivery Room Air Fraction of Inspired Oxygen 05/01/24 11:11 05/01/24 10:00 05/01/24 12:00 Temperature 97.6 F Pulse Rate 87 85 87 Respiratory Rate 20 20 Blood Pressure 134/52 L Pulse Oximetry 99 99 Oxygen Delivery Room Air Fraction of Inspired Oxygen 05/01/24 12:00 Temperature Pulse Rate 87 Respiratory Rate Blood Pressure Pulse Oximetry Oxygen Delivery Fraction of Inspired Oxygen Intake/Output Intake/Output: Intake & Output 04/28/24 04/29/24 04/30/24 05/01/24 23:59 23:59 23:59 23:59 Intake Total 50 540 Output Total 800 Balance 50 -260 Meds/Results Medications: Active Medications Generic Name Dose Route Start Last Admin Trade Name Freq PRN Reason Stop Dose Admin Acetaminophen 1,000 mg 05/01/24 00:44 Acetaminophen 500 Mg Tablet PO Q6H PRN Mild Pain (1-3) or Fever Al Hydrox/Mg Hydrox/Simethicone 30 ml 05/01/24 00:44 Mag Hydrox/Al Hydrox/Simeth 30 Ml Udc PO Q6H PRN Indigestion Albuterol/Ipratropium 3 ml 05/01/24 02:00 05/01/24 08:49 Ipratropium 0.5 Mg/Albuterol Sulfate 2.5 Mg Ampul.Neb 3 Ml INHALATION 3 ml Q6HRT TESSIE Administration Enoxaparin Sodium 40 mg 05/01/24 09:00 Enoxaparin 40 Mg/0.4 Ml Syringe SUB-Q DAILY [facility] Ceftriaxone Sodium 1 gm in 50 mls @ 100 mls/hr 05/01/24 21:00 Rocephin 1 Gm/Ns 50 Ml IVPB Q24H [facility] Azithromycin 500 mg in 250 mls @ 250 mls/hr 05/01/24 21:00 Zithromax IVPB Q24H TESSIE Methylprednisolone Sodium Succinate 60 mg 05/01/24 00:00 05/01/24 06:31 Methylprednisolone Sod Succ 125 Mg Vial IV PUSH 60 mg Q6HR TESSIE Administration Morphine Sulfate 2 mg 05/01/24 00:44 Morphine Sulfate (*Crx) 2 Mg/Ml Inj IV PUSH Q4H PRN Pain Rated 7-10 Ondansetron HCl 4 mg 05/01/24 00:44 Ondansetron Inj 4 Mg/2 Ml Vial IV PUSH Q6H PRN Nausea And Vomiting Polyethylene Glycol 17 gm 05/01/24 00:44 Polyethylene Glycol 3350 17 Gm Powd.Pack PO QAM PRN Constipation Radiology Results: ITS Impressions Chest X-Ray 04/30/24 16:34 IMPRESSION: 1. Opacities in the right lower lung zone consistent with unilateral small to moderate-sized right pleural effusion and associated atelectasis and/or pneumonia. Chest CTA 04/30/24 21:11 IMPRESSION: 1. Mild pulmonary edema. 2. Mild airspace opacities in left lung upper lobe, consistent with pulmonary edema versus pneumonia. 3. Moderate-sized right and small left pleural effusions. 4. No pulmonary embolus. Sensitivity is moderately decreased by motion artifact. 5. Partially visualized severe atrophy of left kidney. Left hydronephrosis. Labs Labs: Laboratory Results - last 24 hr 04/30/24 04/30/24 04/30/24 16:15 19:40 21:33 WBC 8.9 RBC 4.09 L Hgb 12.7 L Hct 38.2 L MCV 93.4 MCH 31.1 MCHC 33.2 RDW 11.6 Plt Count 296 MPV 10.4 Immature Gran % (Auto) 0.3 Neut % (Auto) 71.0 Lymph % (Auto) 16.9 L Esmeralda % (Auto) 8.8 H Eos % (Auto) 2.2 Baso % (Auto) 0.8 Lymph # (Auto) 1.51 Esmeralda # (Auto) 0.8 H Eos # (Auto) 0.2 Baso # (Auto) 0.1 Abs Immat Gran (auto) 0.03 Absolute Neuts (auto) 6.3 Absolute Nucleated RBC 0.000 Nucleated RBC % 0.0 PT 14.8 H INR 1.1 APTT 35.9 D-Dimer 2.24 H Sodium 136 L Potassium 4.1 Chloride 104 Carbon Dioxide 22 Anion Gap 10 BUN 26 H Creatinine 1.30 Estim Creat Clear Calc 49 Estimated GFR 54 L Glucose 106 Calcium 9.6 Total Bilirubin 0.9 AST 23 ALT 15 Alkaline Phosphatase 63 Troponin I 0.044 H* 0.040 H* NT-Pro-B Natriuret Pep 7260 H Total Protein 9.0 H Albumin 4.4 Urine Color Yellow Urine Appearance Clear Urine pH 5.5 Ur Specific [place] 1.008 Urine Protein Negative Urine Glucose (UA) Negative Urine Ketones Negative Ur Blood (Man) Negative Urine Nitrate Negative Urine Bilirubin Negative Urine Urobilinogen 0.2 Leukocyte Esterase Rfl Negative Influenza A (RT-PCR) Negative Influenza B (RT-PCR) Negative RSV (RT-PCR) Negative SARS-CoV-2 RNA (RT-PCR) Negative 04/30/24 22:00 WBC RBC Hgb Hct MCV MCH MCHC RDW Plt Count MPV Immature Gran % (Auto) Neut % (Auto) Lymph % (Auto) Esmeralda % (Auto) Eos % (Auto) Baso % (Auto) Lymph # (Auto) Esmeralda # (Auto) Eos # (Auto) Baso # (Auto) Abs Immat Gran (auto) Absolute Neuts (auto) Absolute Nucleated RBC Nucleated RBC % PT INR APTT D-Dimer Sodium Potassium Chloride Carbon Dioxide Anion Gap BUN Creatinine Estim Creat Clear Calc Estimated GFR Glucose Calcium Total Bilirubin AST ALT Alkaline Phosphatase Troponin I 0.037 H* NT-Pro-B Natriuret Pep Total Protein Albumin Urine Color Urine Appearance Urine pH Ur Specific [place] Urine Protein Urine Glucose (UA) Urine Ketones Ur Blood (Man) Urine Nitrate Urine Bilirubin Urine Urobilinogen Leukocyte Esterase Rfl Influenza A (RT-PCR) Influenza B (RT-PCR) RSV (RT-PCR) SARS-CoV-2 RNA (RT-PCR) This report may have been done utilizing a voice recognition system. Attempts have been made to correct errors. However, there may be uncorrected grammatical,spelling, and recognition errors present. Report Initialized date/time: Solomon Gallo MD 05/01/24 / 1255 Electronically signed by: Solomon Gallo MD 05/01/24 125 Progress Note [facility] Note Date/Time May 02, 2024 7:24pm [facility] [address] [place], [place] [id number] Hospitalist Progress Note Signed Patient: Rigo Caballero MR#: [id number] : 1945 Acct:[id number] Age: 78 ADM Date: 05/02/24 Loc: [facility] 206-[address]: Hermelinda Babcock M.D. cc: ~ Progress Note: A&P Assessment and Plan (1) Pneumonia: Qualifiers: Laterality: left Lung location: upper lobe of lung Pneumonia type: dueto unspecified organism Qualified Code(s): J18.9 - Pneumonia, unspecified organism Code(s): J18.9 - Pneumonia, unspecified organism Status: Acute Assessment and Plan: Patient presents with SOB. WBC was normal. DDimer positive at 2.24. CTA chest showing no obvious PE but mild pulmonary edema, left upper lobe opacity and moderate right and mild left pleural effusion. LE venous Doppler negative for DVT COVID, influenza and RSV PCR negative. Patient is started on Rocephin and Zithromax after appropriate cultures obtained. BCx NGTD WBC higher related to steroids. Weaned to room air Check MRSA nasal swab. Change to oral Doxycycline to complete 5 days. Extend to 7 days total if MRSA +. Continue Rocephin (2) New onset of congestive heart failure: Code(s): I50.9 - Heart failure, unspecified Status: Acute Assessment and Plan: CTA chest as above. BNP elevated at 7260. Lasix IV once in the ED. Cr was 1.3 but now up to 1.6. Echo with elevated RAP (15), enlarged LV with thickened wall and mildly reduced EF 45-50%. Moderate and mild MR. Hold further Lasix dosing. No prior diagnosis of congestive heart failure. Cardiology consult recommended (3) Elevated troponin: Code(s): R79.89 - Other specified abnormal findings of blood chemistry Status: Acute Assessment and Plan: Troponin mildly elevated at 0.044 and flat. EKG showing NSR, PVCs, possible LAE, consider anterior infarct, borderline ST-T wave changes inf/lat leads No old EKGs to compare. Repeat EKG showing no change Suspect troponin leak related to CHF (4) Pleural effusion: Code(s): J90 - Pleural effusion, not elsewhere classified Status: Acute Assessment and Plan: CTA chest showing R>L pleural effusion Patient underwent ultrasound-guided thoracentesis yesterday pH >7.5. No RBC./WBC. 24% PMNs, 45% lymph, 20% Macrophages. Cytology pending. Add pleural culture if able. Other studies pending (5) COPD (chronic obstructive pulmonary disease): Code(s): J44.9 - Chronic obstructive pulmonary disease, unspecified Status: Acute Assessment and Plan: Patient with possible COPD exacerbation. He was started on DuoNebs and Solu- Medrol Solu-Medrol will change to oral prednisone Continue Prednisone (6) Tobacco dependence: Code(s): F17.200 - Nicotine dependence, unspecified, uncomplicated Status: Acute Assessment and Plan: Patient educated about the benefit of smoking cessation Plan Debility - start PTOT DVT prophylaxis - Lovenox Code status - full Subjective Date/time seen: 05/02/24 13:14 Interval history: 78yo male with tobacco abuse and probably COPD here for shortness of breath. Assuming care. Chart reviewed. No problems overnight. No odynophagia or dysphagia. Cough is much better. No chest pain. He was having some chest tightness earlier today but this improved after a breathing treatment. He usually walks unassisted at home. Exam Narrative: AF 97.8 147/90 92 18 96% ra Gen - NARD Chest - decreased BS in the right base with crackles mid and lower lung field; no wheezing CV - RRR S1/S2. No JVD. Tele showing NSR with one episode of probably atrial tachycardia. Abd - Soft, NT/ND, Positive BS Ext - No pedal edema Neuro - Alert and oriented. Nonfocal exam. Psych - Nml mood and affect Skin - Warm and dry Objective Data Vital Signs Vital Signs: Vital Signs - 24 hr 05/01/24 14:30 05/01/24 14:38 05/01/24 15:06 Temperature 98.1 F Pulse Rate 86 91 85 Respiratory Rate 18 18 20 Blood Pressure 135/70 Pulse Oximetry 94 Oxygen Delivery Fraction of Inspired Oxygen 05/01/24 14:00 05/01/24 16:00 05/01/24 16:00 Temperature Pulse Rate 90 85 93 Respiratory Rate 20 Blood Pressure Pulse Oximetry 94 Oxygen Delivery Room Air Fraction of Inspired Oxygen 21 05/01/24 18:00 05/01/24 20:33 05/01/24 20:36 Temperature 98.2 F Pulse Rate 86 81 81 Respiratory Rate 20 18 Blood Pressure 110/46 L Pulse Oximetry 93 Oxygen Delivery Fraction of Inspired Oxygen 05/01/24 20:39 05/01/24 20:47 05/01/24 20:00 Temperature Pulse Rate 81 91 91 Respiratory Rate 18 18 Blood Pressure Pulse Oximetry 93 93 Oxygen Delivery Room Air Room Air Fraction of Inspired Oxygen 21 21 05/01/24 23:35 05/02/24 00:00 05/02/24 02:40 Temperature 98.1 F Pulse Rate 92 92 89 Respiratory Rate 20 20 18 Blood Pressure 127/79 Pulse Oximetry 93 93 Oxygen Delivery Room Air Fraction of Inspired Oxygen 21 05/02/24 02:48 05/02/24 05:18 05/02/24 04:00 Temperature 98.3 F Pulse Rate 84 87 87 Respiratory Rate 18 20 20 Blood Pressure 135/71 Pulse Oximetry 96 96 Oxygen Delivery Room Air Fraction of Inspired Oxygen 21 05/01/24 20:00 05/01/24 22:00 05/02/24 00:00 Temperature Pulse Rate 86 87 88 Respiratory Rate Blood Pressure Pulse Oximetry Oxygen Delivery Fraction of Inspired Oxygen 05/02/24 02:00 05/02/24 04:00 05/02/24 06:00 Temperature Pulse Rate 72 71 78 Respiratory Rate Blood Pressure Pulse Oximetry Oxygen Delivery Fraction of Inspired Oxygen 05/02/24 07:24 05/02/24 08:00 05/02/24 08:00 Temperature 97.5 F L Pulse Rate 87 87 85 Respiratory Rate 20 20 Blood Pressure 156/89 H Pulse Oximetry 99 99 Oxygen Delivery Room Air Fraction of Inspired Oxygen 21 05/02/24 08:52 05/02/24 08:55 05/02/24 09:04 Temperature Pulse Rate 90 90 87 Respiratory Rate 18 18 18 Blood Pressure Pulse Oximetry 94 Oxygen Delivery Room Air Fraction of Inspired Oxygen 05/02/24 11:25 05/02/24 10:00 05/02/24 12:00 Temperature 97.8 F Pulse Rate 86 80 98 Respiratory Rate 20 Blood Pressure 147/90 H Pulse Oximetry 96 Oxygen Delivery Fraction of Inspired Oxygen 05/02/24 12:00 05/02/24 12:42 05/02/24 12:51 Temperature Pulse Rate 86 92 Respiratory Rate 18 18 Blood Pressure Pulse Oximetry Oxygen Delivery Room Air Fraction of Inspired Oxygen Intake/Output Intake/Output: Intake & Output 04/29/24 04/30/24 05/01/24 05/02/24 23:59 23:59 23:59 23:59 Intake Total 50 900 740 Output Total 870 600 Balance 50 30 140 Meds/Results Medications: Active Medications Generic Name Dose Route Start Last Admin Trade Name Freq PRN Reason Stop Dose Admin Acetaminophen 1,000 mg 05/01/24 00:44 Acetaminophen 500 Mg Tablet PO Q6H PRN Mild Pain (1-3) or Fever Al Hydrox/Mg Hydrox/Simethicone 30 ml 05/01/24 00:44 Mag Hydrox/Al Hydrox/Simeth 30 Ml Udc PO Q6H PRN Indigestion Albuterol/Ipratropium 3 ml 05/01/24 02:00 05/02/24 12:42 Ipratropium 0.5 Mg/Albuterol Sulfate 2.5 Mg Ampul.Neb 3 Ml INHALATION 3 ml Q6HRT TESSIE Administration Enoxaparin Sodium 40 mg 05/01/24 09:00 05/02/24 08:04 Enoxaparin 40 Mg/0.4 Ml Syringe SUB-Q 40 mg DAILY TESSIE Administration Furosemide 40 mg 05/02/24 09:00 Furosemide Inj 40 Mg/4 Ml Vial IV PUSH DAILY [facility] Ceftriaxone Sodium 1 gm in 50 mls @ 100 mls/hr 05/01/24 21:00 05/01/24 21:02 Rocephin 1 Gm/Ns 50 Ml IVPB 100 mls/hr Q24H TESSIE Administration Azithromycin 500 mg in 250 mls @ 250 mls/hr 05/01/24 21:00 05/01/24 21:02 Zithromax IVPB 250 mls/hr Q24H TESSIE Administration Morphine Sulfate 2 mg 05/01/24 00:44 Morphine Sulfate (*Crx) 2 Mg/Ml Inj IV PUSH Q4H PRN Pain Rated 7-10 Ondansetron HCl 4 mg 05/01/24 00:44 Ondansetron Inj 4 Mg/2 Ml Vial IV PUSH Q6H PRN Nausea And Vomiting Polyethylene Glycol 17 gm 05/01/24 00:44 Polyethylene Glycol 3350 17 Gm Powd.Pack PO QAM PRN Constipation Prednisone 40 mg 05/02/24 08:00 05/02/24 08:04 Prednisone 20 Mg Tablet PO 40 mg DAILY@0800 TESSIE Administration Radiology Results: ITS Impressions Chest CTA 04/30/24 21:11 IMPRESSION: 1. Mild pulmonary edema. 2. Mild airspace opacities in left lung upper lobe, consistent with pulmonary edema versus pneumonia. 3. Moderate-sized right and small left pleural effusions. 4. No pulmonary embolus. Sensitivity is moderately decreased by motion artifact. 5. Partially visualized severe atrophy of left kidney. Left hydronephrosis. Abdomen/Pelvis CT 05/01/24 15:04 IMPRESSION: 1. Moderate-sized right and small left pleural effusions. 2. Severe atrophy of left kidney. No hydronephrosis. Chest X-Ray 05/01/24 16:46 IMPRESSION: 1. Moderate-sized right pleural effusion with improvement status post thoracentesis. 2. Cardiomegaly. Thoracentesis Ultrasound 05/01/24 17:31 IMPRESSION: 1. Successful ultrasound-guided thoracentesis yielding 1900 mL of thin yellow fluid. Labs Labs: Laboratory Results - last 24 hr 05/01/24 05/02/24 16:41 04:04 WBC 13.5 H RBC 4.21 L Hgb 13.0 L Hct 39.7 L MCV 94.3 MCH 30.9 MCHC 32.7 RDW 11.5 Plt Count 302 MPV 10.2 Immature Gran % (Auto) 0.4 Neut % (Auto) 85.7 H Lymph % (Auto) 6.7 L Esmeralda % (Auto) 7.0 Eos % (Auto) 0.1 Baso % (Auto) 0.1 L Lymph # (Auto) 0.90 Esmeralda # (Auto) 1.0 H Eos # (Auto) 0.0 Baso # (Auto) 0.0 Abs Immat Gran (auto) 0.05 H Absolute Neuts (auto) 11.6 H Absolute Nucleated RBC 0.000 Nucleated RBC % 0.0 Sodium 139 Potassium 4.1 Chloride 104 Carbon Dioxide 26 Anion Gap 9 BUN 34 H Creatinine 1.60 H Estim Creat Clear Calc 41 Estimated GFR 42 L Glucose 131 H Calcium 9.6 Magnesium 2.5 H Total Bilirubin 0.5 AST 23 ALT 14 Alkaline Phosphatase 55 Total Protein 8.0 Albumin 4.1 Pleural Fluid Source Pleural fluid Pleural Color Yellow Pleural Appearance Cloudy Pleural pH > 7.500 H Pleural RBC TNP Pleural Nuc Cells TNP Pleural Neutrophils 24 Pleural Lymphocytes 45 Pleural Monocytes 6 Pleural Macrophages 20 Pleural Mesothelial 4 Pleural Other Cells 1 This report may have been done utilizing a voice recognition system. Attempts have been made to correct errors. However, there may be uncorrected grammatical,spelling, and recognition errors present. Report Initialized date/time: Oren Moreno MD 05/02/241317 Electronically signed by: Oren Moreno MD 05/02/241923 Progress Note Author [facility] Note Date/Time May 03, 2024 3:38pm [facility] [address] [place] [address] Hospitalist Progress Note Signed Patient: Rigo Caballero MR#: [id number] : 1945 Acct:[id number] Age: 78 ADM Date: 05/02/24 Loc: [id number]: Hermelinda Babcock M.D. cc: ~ Progress Note: A&P Assessment and Plan (1) Pneumonia: Qualifiers: Laterality: left Lung location: upper lobe of lung Pneumonia type: dueto unspecified organism Qualified Code(s): J18.9 - Pneumonia, unspecified organism Code(s): J18.9 - Pneumonia, unspecified organism Status: Acute Assessment and Plan: Patient presents with SOB. WBC was normal. DDimer positive at 2.24. CTA chest showing no obvious PE but mild pulmonary edema, left upper lobe opacity and moderate right and mild left pleural effusion. LE venous Doppler negative for DVT COVID, influenza and RSV PCR negative. Patient is started on Rocephin and Zithromax after appropriate cultures obtained. BCx NGTD WBC higher related to steroids. Weaned to room air Check MRSA nasal swab. Change to oral Doxycycline to complete 5 days. Extend to 7 days total if MRSA +. Continue Rocephin MRSA negative 05/03 if home tomorrow- will downgrade rocephin to po med- prob augmentin (2) New onset of congestive heart failure: Code(s): I50.9 - Heart failure, unspecified Status: Acute Assessment and Plan: CTA chest as above. BNP elevated at 7260. Lasix IV once in the ED. Cr was 1.3 but now up to 1.6. Echo with elevated RAP (15), enlarged LV with thickened wall and mildly reduced EF 45-50%. Moderate and mild MR. Hold further Lasix dosing. No prior diagnosis of congestive heart failure. Cardiology consulted- awaiting recommendations -monitor for edema, sob, i/o (3) Elevated troponin: Code(s): R79.89 - Other specified abnormal findings of blood chemistry Status: Acute Assessment and Plan: Troponin mildly elevated at 0.044 and flat. EKG showing NSR, PVCs, possible LAE, consider anterior infarct, borderline ST-T wave changes inf/lat leads No old EKGs to compare. Repeat EKG showing no change Suspect troponin leak related to CHF (4) Pleural effusion: Code(s): J90 - Pleural effusion, not elsewhere classified Status: Acute Assessment and Plan: CTA chest showing R>L pleural effusion Patient underwent ultrasound-guided thoracentesis yesterday pH >7.5. No RBC./WBC. 24% PMNs, 45% lymph, 20% Macrophages. Cytology pending. Add pleural culture if able. Other studies pending (5) COPD (chronic obstructive pulmonary disease): Code(s): J44.9 - Chronic obstructive pulmonary disease, unspecified Status: Acute Assessment and Plan: Patient with possible COPD exacerbation. He was started on DuoNebs and Solu- Medrol Solu-Medrol will change to oral prednisone Continue Prednisone (6) Tobacco dependence: Code(s): F17.200 - Nicotine dependence, unspecified, uncomplicated Status: Acute Assessment and Plan: Patient educated about the benefit of smoking cessation Plan Debility - PTOT DVT prophylaxis - Lovenox Code status - foster parent Spent With Patient Time with patient: Greater than 35 minutes Subjective Date/time seen: 05/03/24 09:51 Interval history: 78yo male here for shortness of breath and new onset of CHF. Assuming care. Pt reports no acute events overnight. Some cough. Plan to be discharged home- anticipate discharge tomorrow. Cardiology was consulted but have not seen him yet. He still gets somewhat sob, denies any BLE edema. Review of Systems Review of Systems: Persistent productive cough of white thick sputum, shortness of breath. All systems reviewed & are unremarkable except as noted in HPI and below Exam Narrative: AF 97.8 147/90 92 18 96% ra Gen - NARD Chest - decreased BS in the right base with crackles mid and lower lung field; no wheezing CV - RRR S1/S2. No JVD. Tele showing NSR with one episode of probably atrial tachycardia. Abd - Soft, NT/ND, Positive BS Ext - No pedal edema Neuro - Alert and oriented. Nonfocal exam. Psych - Nml mood and affect Skin - Warm and dry Const: General: cooperative, comfortable, no acute distress, well developed, alert, awake, ill appearing chronically and average body habitus Nutritional Appearance: average body habitus Orientation/consciousness: patient oriented x3 Other: on supplemental oxygen by nasal can HENMT: Head: normal to inspection, normocephalic and atraumatic Ears: hearing grossly normal bilaterally Face/Nose/Sinus: normal facial exam Face and sinus: normal facial exam Eyes: General: appearance normal, both eyes and all related structures Pupils: Equal, round and reactive pupils present EOM: EOMs intact bilaterally Neck: Neck: full ROM, no lymphadenopathy and no JVD Thyroid: thyroid normal Lymphatic: no lymphadenopathy noted Resp: Effort & Inspection: normal respiratory effort and able to speak in complete sentences Auscultation: crackles, rales and diminished lung sounds Cardio: Jugular venous distension: no JVD Rate: regular rate Rhythm: regular rhythm Heart sounds: S1 normal heart sound present and S2 normal heart sound present : General: Yes deferred Skin: Rashes: no rashes Wounds: no wounds Neuro: General: patient oriented x3, CN's II-XI intact bilaterally and Unable to assess gait Cranial nerves: Yes CN's II-XII intact bilaterally and Yes Equal, round and reactive pupils present Cognition (Neuro): normal cognition Speech: normal speech Gait exam (Neuro): Unable to assess gait Motor exam (neuro): 5/5 motor strength present throughout Extrem: General: normal to inspection, full ROM, no joint enlargement and no pedal edema Objective Data Vital Signs Vital Signs: Vital Signs - 24 hr 05/02/24 11:25 05/02/24 10:00 05/02/24 12:00 Temperature 97.8 F Pulse Rate 86 80 98 Respiratory Rate 20 Blood Pressure 147/90 H Pulse Oximetry 96 Oxygen Delivery Fraction of Inspired Oxygen 05/02/24 12:00 05/02/24 12:42 05/02/24 12:51 Temperature Pulse Rate 86 92 Respiratory Rate 18 18 Blood Pressure Pulse Oximetry Oxygen Delivery Room Air Fraction of Inspired Oxygen 05/02/24 15:37 05/02/24 14:00 05/02/24 16:00 Temperature 98.1 F Pulse Rate 89 86 Respiratory Rate 20 Blood Pressure 137/87 Pulse Oximetry 99 Oxygen Delivery Room Air Fraction of Inspired Oxygen 05/02/24 16:00 05/02/24 18:00 05/02/24 20:00 Temperature 97.7 F Pulse Rate 85 85 91 Respiratory Rate 20 Blood Pressure 140/86 Pulse Oximetry 96 Oxygen Delivery Fraction of Inspired Oxygen 05/02/24 20:16 05/02/24 20:16 05/02/24 20:26 Temperature Pulse Rate 96 92 Respiratory Rate 18 18 Blood Pressure Pulse Oximetry 94 Oxygen Delivery Room Air Fraction of Inspired Oxygen 05/02/24 20:00 05/03/24 02:20 05/03/24 02:30 Temperature Pulse Rate 92 88 84 Respiratory Rate 18 18 18 Blood Pressure Pulse Oximetry 94 Oxygen Delivery Room Air Fraction of Inspired Oxygen 05/03/24 05:03 05/03/24 06:21 05/03/24 09:02 Temperature 97.8 F Pulse Rate 91 87 Respiratory Rate 16 Blood Pressure 165/95 H Pulse Oximetry 95 95 Oxygen Delivery Room Air Fraction of Inspired Oxygen 05/03/24 09:02 05/03/24 09:11 Temperature Pulse Rate 93 86 Respiratory Rate 20 20 Blood Pressure Pulse Oximetry Oxygen Delivery Fraction of Inspired Oxygen Intake/Output Intake/Output: Intake & Output 04/30/24 05/01/24 05/02/24 05/03/24 23:59 23:59 23:59 23:59 Intake Total 50 950 1810 200 Output Total 870 1900 400 Balance 50 80 -90 -200 Meds/Results Medications: Active Medications Generic Name Dose Route Start Last Admin Trade Name Freq PRN Reason Stop Dose Admin Acetaminophen 1,000 mg 05/01/24 00:44 Acetaminophen 500 Mg Tablet PO Q6H PRN Mild Pain (1-3) or Fever Al Hydrox/Mg Hydrox/Simethicone 30 ml 05/01/24 00:44 Mag Hydrox/Al Hydrox/Simeth 30 Ml Udc PO Q6H PRN Indigestion Albuterol/Ipratropium 3 ml 05/01/24 02:00 05/03/24 09:00 Ipratropium 0.5 Mg/Albuterol Sulfate 2.5 Mg Ampul.Neb 3 Ml INHALATION 3 ml Q6HRT TESSIE Administration Doxycycline Hyclate 100 mg 05/02/24 21:00 05/03/24 08:41 Doxycycline Hyclate 100 Mg Tablet PO 05/05/24 09:01 100 mg Q12HR TESSIE Administration Enoxaparin Sodium 40 mg 05/01/24 09:00 05/03/24 08:41 Enoxaparin 40 Mg/0.4 Ml Syringe SUB-Q 40 mg DAILY TESSIE Administration Ceftriaxone Sodium 1 gm in 50 mls @ 100 mls/hr 05/01/24 21:00 05/02/24 22:46 Rocephin 1 Gm/Ns 50 Ml IVPB 100 mls/hr Q24H TESSIE Administration Morphine Sulfate 2 mg 05/01/24 00:44 Morphine Sulfate (*Crx) 2 Mg/Ml Inj IV PUSH Q4H PRN Pain Rated 7-10 Ondansetron HCl 4 mg 05/01/24 00:44 Ondansetron Inj 4 Mg/2 Ml Vial IV PUSH Q6H PRN Nausea And Vomiting Polyethylene Glycol 17 gm 05/01/24 00:44 Polyethylene Glycol 3350 17 Gm Powd.Pack PO QAM PRN Constipation Prednisone 40 mg 05/02/24 08:00 05/03/24 08:41 Prednisone 20 Mg Tablet PO 40 mg DAILY@0800 TESSIE Administration Radiology Results: ITS Impressions Chest CTA 04/30/24 21:11 IMPRESSION: 1. Mild pulmonary edema. 2. Mild airspace opacities in left lung upper lobe, consistent with pulmonary edema versus pneumonia. 3. Moderate-sized right and small left pleural effusions. 4. No pulmonary embolus. Sensitivity is moderately decreased by motion artifact. 5. Partially visualized severe atrophy of left kidney. Left hydronephrosis. Abdomen/Pelvis CT 05/01/24 15:04 IMPRESSION: 1. Moderate-sized right and small left pleural effusions. 2. Severe atrophy of left kidney. No hydronephrosis. Chest X-Ray 05/01/24 16:46 IMPRESSION: 1. Moderate-sized right pleural effusion with improvement status post thoracentesis. 2. Cardiomegaly. Thoracentesis Ultrasound 05/01/24 17:31 IMPRESSION: 1. Successful ultrasound-guided thoracentesis yielding 1900 mL of thin yellow fluid. Venous Doppler Study 05/02/24 15:16 IMPRESSION: 1. No deep venous thrombosis. Labs Labs: Laboratory Results - last 24 hr 05/03/24 05/03/24 05:01 06:11 Sodium 137 Potassium 4.0 Chloride 107 Carbon Dioxide 26 Anion Gap 4 BUN 34 H Creatinine 1.50 H Estim Creat Clear Calc 43 Estimated GFR 46 L Glucose 108 Calcium 9.5 Phosphorus 3.2 Albumin 4.0 Triglycerides 87 Cholesterol 165 LDL Cholesterol Direct 86 HDL Direct 42 Nasal MRSA (PCR) Not detected This report may have been done utilizing a voice recognition system. Attempts have been made to correct errors. However, there may be uncorrected grammatical,spelling, and recognition errors present. Report Initialized date/time: Bessie Vargas APRN 05/03/24 / [id number] Electronically signed by: Bessie Vargas APRN 05/03/24 1537
[2024-06-27 02:24] LABS: Albumin Pleural Fluid 2.9 g/dL; Amylase, Pleural Fluid 27 U/L; Glucose Pleural Fluid 100 mg/dL; LDH Pleural Fluid 143 U/L; Total Protein Pleural Fluid 4.6 g/dL
== END 2024-06-19 17:26 | disposition home or self-care (01) | DRG 280 ==
LOC: ANHED 02:34 → ANHIMU 05:59 → ANHICU 06-15 09:40 → ANHIMU 06-16 11:04
PROVIDERS: Internal Medicine; Admitting Provider Internal Medicine; Emergency Provider Emergency Medicine; Visit Provider Internal Medicine
PROC: 4A023N7 Measurement of Cardiac Sampling and Pressure, Left Heart, Percutaneous Approach (ICD-10-PCS; CPT 93454; principal; 2024-06-18 15:30)
DX: I13.0 Hypertensive heart and chronic kidney disease with heart failure and stage 1 through stage 4 chronic kidney disease, or unspecified chronic kidney disease (principal); I50.23 Acute on chronic systolic (congestive) heart failure; I21.A1 Myocardial infarction type 2; J90 Pleural effusion, not elsewhere classified; J44.1 Chronic obstructive pulmonary disease with (acute) exacerbation; N18.30 Chronic kidney disease, stage 3 unspecified; E78.5 Hyperlipidemia, unspecified; I35.0 Nonrheumatic aortic (valve) stenosis; I25.10 Atherosclerotic heart disease of native coronary artery without angina pectoris; Z87.891 Personal history of nicotine dependence; Z28.21 Immunization not carried out because of patient refusal; Z79.82 Long term (current) use of aspirin
CPT/HCPCS: 32555; 36415; 71045; 80048; 80053; 80069; 82042; 82150; 82945; 83605; 83615; 83690; 83735; 83880; 83986; 84145; 84157; 84311; 84478; 84484; 85025; 85610; 85730; 87015; 87040; 87070; 87075; 87116; 87205; 87206; 87637; 88108; 88305; 89051; 93005; 93454; 96374; 99285; A9270; C1769; C1887; C1894; J1644; J1650; J1940; J2003; J2250; J3010; J7030; J7040